=== PATIENT | male | born 1945 ===

== ENCOUNTER 2018-11-12 08:12 | Inpatient (IN) | payer MEDICARE ==
[2018-11-12] MEDS ORDERED: Dextrose 50% Syringe 50 ML* 25 GM/50 ML SYRINGE IV PUSH PRN (14:42)
[2018-11-12] MEDS ORDERED: Acetaminophen TAB* 325 MG PO ONE (16:30)
[2018-11-12] MEDS: Atorvastatin* 80 MG TAB PO SCH (17:09)
[2018-11-12] MEDS: metFORMIN* 1,000 MG TAB PO SCH (17:15)
[2018-11-12] MEDS: Insulin LISPRO* 1 UNITS UNIT SUBCUT SCH ×2 (18:19→21:41)
[2018-11-12] MEDS: Enoxaparin(*) 40 MG/0.4 ML SYR SUBCUT SCH ×2 (20:34→21:42)
[2018-11-12] MEDS: Loperamide CAP* 2 MG PO PRN (20:34)
[2018-11-12] MEDS ORDERED: Docusate CAP* 100 MG PO SCH (21:00)
--- NOTE | 2018-11-12 21:59 | HP ---
ADMISSION HISTORY AND PHYSICAL: DATE OF ADMISSION: 11/12/18 REASON FOR ADMISSION: Stroke with right hemiplegia and dysphagia. HISTORY OF PRESENT ILLNESS: Yovany Cosme is a 73-year-old male. In August 2017, he fell and hit his head and developed a subdural hematoma. However, he recovered from that and was still able to work. On 11/04/18, the patient had developed acute onset of slurred speech. His had called him and she did not like the way he sounded. She had later brought him to [facility]. He was admitted to [facility] and apparently had an MRI of his brain. He was diagnosed with a new stroke. He was sent home with Plavix in addition to normal aspirin. His took him home on 11/05/18. When she was driving home , she stopped at the drug store to pharmacy picking tech the Plavix. She said the patient was getting weaker on the right side all the way home. She was able to get him into the house and into a recliner chair. However, once he was in the recliner , he had a lot of difficulty getting out. But she tried to get him out and onto the couch, he had a great deal of difficulty walking and practically fell on to the floor. She eventually called paramedics and he was taken back to [facility]. From [facility], he was transferred to the [facility]. He was evaluated. He had a CAT scan of his head showing a subacute infarct of the left todd radiata and thalamus. He was not administered TPA because he was outside the window. He did not undergo endovascular therapy. The patient had a new MRI of his brain done. MRI showed a left subinsular/centrum semi ovale subacute infarct. He had an echocardiogram showing left ventricular hypertrophy with left atrial enlargement , but normal ejection fraction. The echo was negative for left and right shunting. He also had a swallow study and there was silent aspiration of regular liquids, so the patient's liquids were thickened. The patient was found to have physical therapy, occupational therapy, and speech therapy needs. He is now being admitted for inpatient rehab so that he might return to independent living. Of note, he was monitored on telemetry and it did not reveal any atrial fibrillation. Also notable was his lab work that showed an LDL of 104 and a hemoglobin A1c of 8.4. PAST MEDICAL HISTORY: Significant for the aforementioned subdural hematoma, diabetes mellitus. He has a history of hypertension and hyperlipidemia. MEDICATIONS: Current medications include: 1. Full strength aspirin every day. 2. Lipitor 80 mg. 3. He is on Lovenox. 4. Glucotrol. 5. Lispro insulin. 6. Lisinopril. 7. Glucophage. 8. Januvia. ALLERGIES: The patient has no known drug allergies. SOCIAL HISTORY: He is a nonsmoker, rare drinker. He lives with his in a [address] house in [place]. He has 2 children who live in the [facility]. 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 REVIEW OF SYSTEMS: The patient reports no current shortness of breath or chest pain. He does report diarrhea, which started at [facility]. PHYSICAL EXAMINATION VITAL SIGNS: The patient's temperature is 97.7, blood pressure is 121/68, pulse 73, respirations 16. HEENT: His extraocular movements are intact. Tongue is midline. NECK: Supple. LUNGS: Sound clear to auscultation bilaterally. HEART: Sounds were regular. S1 and S2 were audible. ABDOMEN: Soft and nontender. EXTREMITIES: He has a flaccid right upper extremity and pretty much a flaccid right lower extremity. Peripheral pulses were intact. NEUROLOGIC: Sensation was intact. Muscle strength: He had no active movement of his right arm. He had maybe trace hip flexion on the right and trace hip extension on the right. He has a right VII nerve palsy. He had dysarthric speech noted. FUNCTIONAL EXAM: The patient's transfers are dependent. ASSESSMENT: Left-sided cerebrovascular accident with right hemiplegia. It appears that he was discharged from [facility] on 11/05/18 while his stroke was still evolving. PLAN/RECOMMENDATIONS: Our plan is to integrate him into comprehensive and therapeutic rehab program with the following goals: 1. Physical Therapy will see the patient. They are going to work on functional transfer training, ambulation training with a walker. 2. Occupational Therapy will see the patient and work on his activities of daily living including toileting and toilet transfers. 3. Speech therapy will see the patient. They will evaluate him for his swallowing difficulties and help advice us on a proper diet. 4. Lovenox for DVT prophylaxis. 5. For his diabetes, we can continue his glipizide, his metformin, Januvia, and sliding scale insulin. 6. Continue Lipitor 80 mg for hyperlipidemia. 7. Continue full strength aspirin a day for secondary stroke prevention. 8. For his diarrhea, we will hold his bowel medications and start Imodium. 9. For hypertension, we will continue the lisinopril 40. We will follow his vital signs. 10. Family training as appropriate. 11. software engineer web services to be closely involved to make sure that any services and equipment that are needed are in place prior to discharge. 12. Home with appropriate services. ESTIMATED LENGTH OF STAY: 4 weeks. [id number]/CPS #: [id number] JUWAN
[2018-11-13 06:00] LABS: ABS Basophils 0.1 10^3/ul (0-0.2); ABS Eosinophils 0.3 10^3/ul (0-0.6); ABS Lymphocytes 1.5 10^3/ul (1.0-4.8); ABS Monocytes 0.9 10^3/ul (0-0.8); ABS Neutrophils 6.1 10^3/ul (1.5-7.7); ABS Nucleated RBC 0 10^3/ul; Eosinophil % 3.5 %; Hematocrit 45 % (36-46); Hemoglobin 14.9 g/dL (14.0-18.0); Lymphocyte % 17.2 %; Mean Corpuscular HGB Conc 33 g/dL (31-36); Mean Corpuscular Hemoglobin 30 pg (27-31); Mean Corpuscular Volume 91 fL (80-94); Mean Platelet Volume 9.3 fL (7.4-10.4); Nucleated Red Blood Cells % 0; Platelet Count 290 10^3/uL (150-450); Red Blood Count 4.92 10^6 /uL (4.18-5.48); Red Cell Distribution Width 14 % (10.5-15)
[2018-11-13 06:16] LABS: Albumin 4.1 g/dL (3.2-5.2); Albumin/Globulin Ratio 1.5 (1-3); Calcium 9.8 mg/dL (8.6-10.3); EGFR African American 72.5 (>60); EGFR Non-African American 59.9 (>60); Globulin 2.7 g/dL (2-4); Potassium 4.2 mmol/L (3.5-5.0); Total Bilirubin 0.5 mg/dL (0.2-1.0); Total Protein 6.8 g/dL (6.4-8.9)
[2018-11-13] MEDS: Insulin LISPRO* 1 UNITS UNIT SUBCUT SCH ×4 (09:21→21:12)
[2018-11-13] MEDS: Aspirin EC TAB* 325 MG PO SCH (09:22)
[2018-11-13] MEDS: CMC:SitaGLIPtin (NF) 100 MG TAB PO SCH (09:22)
[2018-11-13] MEDS: glipiZIDE TAB.XL* 5 MG PO SCH (09:22)
[2018-11-13] MEDS: Lisinopril TAB* 10 MG PO SCH (09:22)
[2018-11-13] MEDS: metFORMIN* 1,000 MG TAB PO SCH ×2 (09:22→16:48)
[2018-11-13] MEDS: Lactobacillus Acidophilus* 1 TAB PO SCH (09:22)
--- NOTE | 2018-11-13 12:57 | PMRUTEAM ---
PMRU: Team Meeting Current Status: Nursing: Current Status Skin Deviations [Upper Back] Rash Skin Deviations [Right Arm] Bruise Skin Deviation Description [ lotion applied Upper Back] Skin Deviation Description [ prior to admission Right Arm] Physical Therapy: Current Status Bed Mobility Assistance Dependent Transfer Mobility Assistance DSPPECependent Ambulation Assistance N/A Occupational Therapy: Current Status Upper Body Dressing Max Asst Lower Body Dressing Total Assist,2 Person Assist Bathing Max Asst,2 Person Assist Toileting Total Assist,2 Person Assist Toilet Transfer Total Assist,2 Person Assist Shower Transfer Total Assist,2 Person Assist Eating Supervision Social Work: Current Status Discharge Plan return home with home care svs and family support Potential for Family Training pt's is involved and supportive Anticipated Discharge Home Destination Discharge With Home care svs and family support SPEECH THERAPY: Mechanical ground, nectar thick liquids, dysphonia, dysarthria Goals: Occupational Therapy: Initial Goals Goals to be Completed in (Days 28+ ) Upper Body Bathing Routine Independent Lower Body Bathing Routine Modified Independent with Upper Body Dressing Routine Independent Lower Body Dressing Routine Modified Independent with Toilet Hygeine and Clothing Modified Independent with Management Routine Toilet Transfer Routine Modified Independent with Step-In Shower Transfer Supervision/Set Up Routine Functional Transfers for ADL Modified Independent with Grooming Routine Independent Feeding Routine Independent Speech: Goals Speech Goal 1 Swallowing Speech Evaluation Status Goal Mild-moderate impairment 1 Goal 1 Comments Long-Term Goal: Patient will I'ly follow precautions to tolerate least restrictive diet consistencies w/ no complications from aspiration. Status: Goals established Short Term Goals: 1) STG: Patient will demonstrate and follow swallowing exercises and compensatory strategies, to tolerate mechanical/ground diet texture and nectar thick liquids, w/ adequate PO intake and no clinical s/s aspiration, Independently 2) STC: Patient will I'ly follow precautions and compensatory strategies, to tolerate thin water between meals and after good oral hygiene, without regard to expected clinical s/s of aspiration, and with no complications from aspiration, Independently 3) STG: Patient will demonstrate and follow swallowing exercises and compensatory strategies, to tolerate regular diet consistency w/ no clinical s/s aspiration, Independently 4) STC: Patient will I'ly follow precautions and compensatory strategies, to tolerate thin liquids with no clinical s/s or complications from aspiration, Independently Speech Goal 2 Motor Speech Speech Goal 2 Comments Motor-speech Long-Term Goal: Pt will I'ly speak with 100% intelligibility, Independently Status: Goals established Short-Term Goal 1: Pt will use compensatory strategies to increase speech to intelligibility to 100% in spontaneous conversational speech, given minimal cueing. Short-Term Goal 2: Pt will use compensatory articulation strategies to increase speech to intelligibility to 90% in structured speech activities, given Moderate cueing. Short-Term Goal 3: Pt will use compensatory articulation strategies to improve vocal loudness and quality, to support intelligible speehc, as judged by ART HISTORY PROFESSOR, staff and family. Social Work: Goals Discharge Plan return home with home care svs and family support Potential for Family Training pt's is involved and supportive Anticipated Discharge Home Destination Discharge With Home care svs and family support PHYSICAL THERAPY: Independent bed mobility and transfers, wheelchair level Care Plan: Care Plan ADL's - Improve/Maintain Start: 11/13/18 07:10 Freq: DAILY Status: Active Target: Protocol: Activity Type Activity Date Activity User E-Sign Co-Sign Detail Recorded Client Recorded Date Recorded By Document 11/13/18 07:10 [id number] 11/13/18 07:11 [id number] 11/13/18 07:10 PMRU Outcome: ADL's/ADL Transfers Orders/Interventions Occupational Therapy Evaluation & Treatment Communication Tool in Patient Room Patient to receive OT 5x/wk for 60-120 Therex min/day Self Care Management Group Therapy UE/LE ADL's with Assist Yes: mod I ADL Transfers with Assist Yes: mod I Toileting: Transfers,Clothing Management Yes: mod I ,Hygeine w/Assist Outcome/Goals Met Pt presents with RUE deficits ( strength, AROM, coordination), balance deficits, RLE weakness, decreased endurance and generalized weakness that affect his ability to complete bathing, dressing, toileting, toilet transfers, showering and feeding. Pt would benefit from skilled OT intervention in a rehabilitation setting to maximize independence with ADLs and ADL trasnfers. Pt is agreeable to OT POC. Family's questions were answered. Cardiovascular-Improve/Maintain Start: 11/13/18 00:55 Freq: DAILY@0400,1600 Status: Active Target: Protocol: Activity Type Activity Date Activity User E-Sign Co-Sign Detail Recorded Client Recorded Date Recorded By Document 11/13/18 00:55 [id number] 11/13/18 00:56 [id number] 11/13/18 00:55 Outcome: Cardiovascular Current Cardiovascular Outcome/Goal Maintain/ achieve hemodynamic stability Free of abnormal cardiac symptoms Progression Towards Outcome/Goal Progressing Communication-Improve/Maintain Start: 11/13/18 12:14 Freq: DAILY Status: Active Target: Protocol: Activity Type Activity Date Activity User E-Sign Co-Sign Detail Recorded Client Recorded Date Recorded By Document 11/13/18 12:14 [id number] 11/13/18 12:16 [id number] 11/13/18 12:14 PMRU Outcome: Communication/Cognitive Status Other Outcomes/Goals Swallowing Goals: Long-Term Goal: Patient will I 'ly follow precautions to tolerate least restrictive diet consistencies w / no complications from aspiration . Status: Goals established Short Term Goals: 1) STG: Patient will demonstrate and follow swallowing exercises and compensatory strategies, to tolerate mechanical/ ground diet texture and nectar thick liquids, w/ adequate PO intake and no clinical s/s aspiration, Independently 2) STC: Patient will I' ly follow precautions and compensatory strategies, to tolerate thin water between meals and after good oral hygiene, without regard to expected clinical s/s of aspiration, and with no complications from aspiration , Independently 3) STG: Patient will demonstrate and follow swallowing exercises and compensatory strategies, to tolerate regular diet consistency w/ no clinical s/s aspiration, Independently 4) STC: Patient will I' ly follow precautions and compensatory strategies, to tolerate thin liquids with no clinical s/s or complications from aspiration , Independently Motor-speech Goals: Long-Term Goal: Pt will I'ly speak with 100% intelligibility , Independently Status: Goals established Short-Term Goal 1: Pt will use compensatory strategies to increase speech to intelligibility to 100% in spontaneous conversational speech, given minimal cueing. Short-Term Goal 2: Pt will use compensatory articulation strategies to increase speech to intelligibility to 90% in structured speech activities, given Moderate cueing. Short-Term Goal 3: Pt will use compensatory articulation strategies to improve vocal loudness and quality, to support intelligible speehc, as judged by ART HISTORY PROFESSOR, staff and family. Progression Toward Outcomes/Goals Progressing Outcome/Goals Met Comment .Swallowing assessment and initial speech- language screening was completed. Complete Speech -Language/ Cognitive- Communication assessment is indicated Discharge Planning Start: 11/13/18 00:55 Freq: DAILY@0400,1600 Status: Active Target: Protocol: Activity Type Activity Date Activity User E-Sign Co-Sign Detail Recorded Client Recorded Date Recorded By Document 11/13/18 00:55 [id number] 11/13/18 00:56 [id number] 11/13/18 00:55 Outcome: Discharge Planning Outcome/Goals Demonstrates Understanding of Discharge Plan Progression Toward Outcome/Goals Progressing Genitourinary-Improve/Maintain Start: 11/13/18 00:55 Freq: DAILY@0400,1600 Status: Active Target: Protocol: Activity Type Activity Date Activity User E-Sign Co-Sign Detail Recorded Client Recorded Date Recorded By Document 11/13/18 00:55 [id number] 11/13/18 00:56 [id number] 11/13/18 00:55 Outcome: Genitourinary Outcome/Goals Maintain/ Achieve Urinary Continence Maintain/ Achieve Adequate Urinary Output Progression Toward Outcome/Goals Progressing Medicine Note: Length of Stay: 6 weeks Anticipated Discharge Destination: Home Tentative Discharge Date: December 25, 2018 Discharged to: Home
[2018-11-13] MEDS ORDERED: Al Hydrox/Mg Hydrox/Simet LIQ* 30 ML UDC PO PRN (13:46)
[2018-11-13] MEDS: D5NS 0.9% 1000 ML BAG* 1,000 ML IV SCH (16:05)
[2018-11-13] MEDS: Atorvastatin* 80 MG TAB PO SCH (16:48)
[2018-11-13] MEDS ORDERED: Atorvastatin* 80 MG TAB PO SCH (17:00)
--- NOTE | 2018-11-13 17:15 | PN ---
Progress Note Date of Service: 11/13/18 Note: KEERTHI LEHMAN was visited. Therapy notes read and reviewed. He was discussed in interdisciplinary plan of care rounds. His blood work indicates that he is dehydrated and will order IV fluids. He is not taking a lot PO. His diarrhea appears to have slowed. Current Medications: Active Medications Generic Name Dose Route Start Last Admin Trade Name Freq PRN Reason Stop Dose Admin Acetaminophen 650 mg 11/12/18 18:05 Tylenol Tab* PO Q6H PRN FEVER/PAIN Al Hydrox/Mg Hydrox/Simethicone 30 ml 11/13/18 13:46 11/13/18 13:57 Maalox Plus* PO 30 ml Q4H PRN Administration DYSPEPSIA Aspirin 325 mg 11/13/18 09:00 11/13/18 09:22 Ecotrin Ec Tab* PO 325 mg DAILY ELROY Administration Atorvastatin Calcium 80 mg 11/12/18 17:00 11/13/18 16:48 Lipitor* PO 80 mg 1700 ELROY Administration Bisacodyl 10 mg 11/12/18 14:09 Dulcolax Supp* AR DAILY PRN CONSTIPATION Dextrose 12.5 gm 11/12/18 14:42 D50w Syringe 50 Ml* IV PUSH .FOR FS < 60 - SS PRN FS < 60 Docusate Sodium 100 mg 11/12/18 19:32 Colace Cap* PO BID PRN CONSTIPATION Enoxaparin Sodium 40 mg 11/12/18 20:30 11/12/18 21:42 Lovenox(*) SUBCUT 40 mg Q24H ELROY Administration Glipizide 10 mg 11/13/18 09:00 11/13/18 09:22 Glucotrol Xl* PO 10 mg DAILY ELROY Administration Dextrose/Sodium Chloride 1,000 mls @ 75 mls/hr 11/13/18 16:00 11/13/18 16:05 D5ns 0.9% 1000 Ml Bag* IV 11/15/18 05:19 75 mls/hr PER RATE ELROY Administration Insulin Human Lispro 0 - 10 units 11/12/18 16:30 11/13/18 16:56 Humalog* SUBCUT Not Given A[facility]S [facility] Protocol Lactobacillus Rhamnosus 1 tab 11/13/18 09:00 11/13/18 09:22 Lactobacillus Acidophilus* PO 1 tab DAILY ELROY Administration Lisinopril 40 mg 11/13/18 09:00 11/13/18 09:22 Prinivil Tab* PO 40 mg DAILY ELROY Administration Loperamide HCl 2 mg 11/12/18 19:31 11/12/18 20:34 Imodium Cap* PO 2 mg .SEE DIRECTIONS PRN Administration DIARRHEA Magnesium Hydroxide 30 ml 11/12/18 14:09 Milk Of Mariela Lozanoq* PO Q6H PRN CONSTIPATION Metformin HCl 1,000 mg 11/12/18 17:00 11/13/18 16:48 Glucophage* PO 1,000 mg 0800,1700 ELROY Administration Senna 2 tab 11/12/18 14:09 Senokot Tab* PO BEDTIME PRN CONSTIPATION Sertraline HCl 25 mg 11/14/18 09:00 Zoloft* PO DAILY ELROY Sitagliptin Phosphate 100 mg 11/13/18 09:00 11/13/18 09:22 Januvia (Nf) PO 100 mg DAILY ELROY Administration Vital Signs: Vital Signs Temp Pulse Resp BP Pulse Ox 97.6 F 77 16 117/64 95 11/13/18 05:35 11/13/18 05:35 11/13/18 05:35 11/13/18 05:35 11/13/18 05:35 Lab Results: Laboratory Results - last 24 hr 11/13/18 11/13/18 11/13/18 05:28 05:28 08:07 WBC 9.0 RBC 4.92 Hgb 14.9 Hct 45 MCV 91 MCH 30 MCHC 33 RDW 14 Plt Count 290 MPV 9.3 Neut % (Auto) 68.0 Lymph % (Auto) 17.2 [place] % (Auto) 10.5 Eos % (Auto) 3.5 Baso % (Auto) 0.8 Absolute Neuts (auto) 6.1 Absolute Lymphs (auto) 1.5 Absolute Monos (auto) 0.9 H Absolute Eos (auto) 0.3 Absolute Basos (auto) 0.1 Absolute Nucleated RBC 0 Nucleated RBC % 0 Sodium 137 Potassium 4.2 Chloride 104 Carbon Dioxide 25 Anion Gap 8 BUN 44 H Creatinine 1.19 H Est GFR ( Amer) 72.5 Est GFR (Non-Af Amer) 59.9 BUN/Creatinine Ratio 37.0 H Glucose 186 H POC Glucose (mg/dL) 195 H Calcium 9.8 Total Bilirubin 0.50 AST 20 ALT 26 Alkaline Phosphatase 65 Total Protein 6.8 Albumin 4.1 Globulin 2.7 Albumin/Globulin Ratio 1.5 11/13/18 11/13/18 10:57 16:46 WBC RBC Hgb Hct MCV MCH MCHC RDW Plt Count MPV Neut % (Auto) Lymph % (Auto) [place] % (Auto) Eos % (Auto) Baso % (Auto) Absolute Neuts (auto) Absolute Lymphs (auto) Absolute Monos (auto) Absolute Eos (auto) Absolute Basos (auto) Absolute Nucleated RBC Nucleated RBC % Sodium Potassium Chloride Carbon Dioxide Anion Gap BUN Creatinine Est GFR ( Amer) Est GFR (Non-Af Amer) BUN/Creatinine Ratio Glucose POC Glucose (mg/dL) 220 H 69 L Calcium Total Bilirubin AST ALT Alkaline Phosphatase Total Protein Albumin Globulin Albumin/Globulin Ratio Exam: HEENT: Right facial droop. Dysarthric LUNGS: Clear HEART: Occasional skipped beats ABDOMEN: Soft +BS EXTREMITIES: Flaccid right UE and LE NEUROLOGIC: Trace hip flexion on right. No active arm movement seen, No DF or PF Assessment/Plan: 1. Left CVA with dense right hemiplegia: ASA. 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 2. DM: Metformin/glipizide/Januvia. SSI 3. HTN: Lisinopril 4. Hyperlipidemia: Lipitor 80 5. Diarrhea: Imodium PRN. Lactobacillus. 6. Dysphagia: Mechanical soft diet/nectar thickened liquids 7. DVT Prophylaxis: Lovenox 8. Dehydration with increasing BUN/Cr: IV D5NS at 75 ml/hr x 2 liters 9. Advance Directives: Full code. is surrogate decision maker 11/13/18 17:15 11/13/18 17:17
[2018-11-13] MEDS: Loperamide CAP* 2 MG PO PRN (19:10)
[2018-11-13] MEDS: Enoxaparin(*) 40 MG/0.4 ML SYR SUBCUT SCH (20:13)
[2018-11-13] MEDS: Famotidine TAB* 20 MG PO SCH (20:13)
[2018-11-14] MEDS: D5NS 0.9% 1000 ML BAG* 1,000 ML IV SCH (06:36)
[2018-11-14] MEDS: Insulin LISPRO* 1 UNITS UNIT SUBCUT SCH ×4 (09:29→21:08)
[2018-11-14] MEDS: glipiZIDE TAB.XL* 5 MG PO SCH (09:31)
[2018-11-14] MEDS: Lisinopril TAB* 10 MG PO SCH (09:31)
[2018-11-14] MEDS: Lactobacillus Acidophilus* 1 TAB PO SCH (09:31)
[2018-11-14] MEDS: CMC:SitaGLIPtin (NF) 100 MG TAB PO SCH (09:31)
[2018-11-14] MEDS: Aspirin EC TAB* 325 MG PO SCH (09:31)
[2018-11-14] MEDS: Sertraline* 25 MG TAB PO SCH (09:31)
[2018-11-14] MEDS: Famotidine TAB* 20 MG PO SCH ×2 (09:32→21:46)
[2018-11-14] MEDS: metFORMIN* 1,000 MG TAB PO SCH ×2 (09:32→17:04)
--- NOTE | 2018-11-14 12:33 | PN ---
Progress Note Date of Service: 11/14/18 Note: KEERTHI LEHMAN was visited. Therapy notes read and reviewed. Receiving IV fluids but IV keeps getting occluded. He looks slightly better than yesterday. Diarrhea seems to have stopped. Current Medications: Active Medications Generic Name Dose Route Start Last Admin Trade Name Freq PRN Reason Stop Dose Admin Acetaminophen 650 mg 11/12/18 18:05 Tylenol Tab* PO Q6H PRN FEVER/PAIN Al Hydrox/Mg Hydrox/Simethicone 30 ml 11/13/18 13:46 11/13/18 13:57 Maalox Plus* PO 30 ml Q4H PRN Administration DYSPEPSIA Aspirin 325 mg 11/13/18 09:00 11/14/18 09:31 Ecotrin Ec Tab* PO 325 mg DAILY ELROY Administration Atorvastatin Calcium 80 mg 11/12/18 17:00 11/13/18 16:48 Lipitor* PO 80 mg 1700 ELROY Administration Bisacodyl 10 mg 11/12/18 14:09 Dulcolax Supp* [place] DAILY PRN CONSTIPATION Dextrose 12.5 gm 11/12/18 14:42 D50w Syringe 50 Ml* IV PUSH .FOR FS < 60 - SS PRN FS < 60 Docusate Sodium 100 mg 11/12/18 19:32 Colace Cap* PO BID PRN CONSTIPATION Enoxaparin Sodium 40 mg 11/12/18 20:30 11/13/18 20:13 Lovenox(*) SUBCUT 40 mg Q24H ELROY Administration Famotidine 20 mg 11/13/18 21:00 11/14/18 09:32 Pepcid Tab* PO 20 mg BID ELROY Administration Glipizide 10 mg 11/13/18 09:00 11/14/18 09:31 Glucotrol Xl* PO 10 mg DAILY ELROY Administration Dextrose/Sodium Chloride 1,000 mls @ 75 mls/hr 11/13/18 16:00 11/14/18 06:36 D5ns 0.9% 1000 Ml Bag* IV 11/15/18 05:19 75 mls/hr PER RATE ELRYO Administration Insulin Human Lispro 0 - 10 units 11/12/18 16:30 11/14/18 09:29 Humalog* SUBCUT 2 units ACHS ELROY Administration Protocol Lactobacillus Rhamnosus 1 tab 11/13/18 09:00 11/14/18 09:31 Lactobacillus Acidophilus* PO 1 tab DAILY ELROY Administration Lisinopril 40 mg 11/13/18 09:00 11/14/18 09:31 Prinivil Tab* PO 40 mg DAILY ELROY Administration Loperamide HCl 2 mg 11/12/18 19:31 11/13/18 19:10 Imodium Cap* PO 2 mg .SEE DIRECTIONS PRN Administration DIARRHEA Magnesium Hydroxide 30 ml 11/12/18 14:09 Milk Of Magnesia Liq* PO Q6H PRN CONSTIPATION Metformin HCl 1,000 mg 11/12/18 17:00 11/14/18 09:32 Glucophage* PO 1,000 mg 0800,1700 ELROY Administration Senna 2 tab 11/12/18 14:09 Senokot Tab* PO BEDTIME PRN CONSTIPATION Sertraline HCl 25 mg 11/14/18 09:00 11/14/18 09:31 Zoloft* PO 25 mg DAILY ELROY Administration Sitagliptin Phosphate 100 mg 11/13/18 09:00 11/14/18 09:31 Januvia (Nf) PO 100 mg DAILY ELROY Administration Vital Signs: Vital Signs Temp Pulse Resp BP Pulse Ox 97.6 F 75 18 99/65 96 11/14/18 05:05 11/14/18 05:05 11/14/18 05:05 11/14/18 05:05 11/14/18 05:05 Lab Results: Laboratory Results - last 24 hr 11/13/18 11/13/18 11/14/18 16:46 20:28 07:28 POC Glucose (mg/dL) 69 L 113 H 182 H 11/14/18 11:36 POC Glucose (mg/dL) 168 H Exam: HEENT: Right facial droop. Dysarthric LUNGS: Clear HEART: Occasional skipped beats ABDOMEN: Soft +BS EXTREMITIES: Flaccid right UE and LE NEUROLOGIC: Trace hip flexion on right. No active arm movement seen, No DF or PF Assessment/Plan: 1. Left CVA with dense right hemiplegia: ASA. 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 2. DM: Metformin/glipizide/Januvia. SSI 3. HTN: Lisinopril 4. Hyperlipidemia: Lipitor 80 5. Diarrhea: Imodium PRN. Lactobacillus. 6. Dysphagia: Mechanical soft diet/nectar thickened liquids 7. DVT Prophylaxis: Lovenox 8. Dehydration with increasing BUN/Cr: IV D5NS at 75 ml/hr x 2 liters 9. Advance Directives: Full code. is surrogate decision maker 11/14/18 12:33
[2018-11-14] MEDS: Atorvastatin* 80 MG TAB PO SCH (17:04)
[2018-11-14] MEDS ORDERED: LORazepam TAB(*) 0.5 MG PO ONE (21:00)
[2018-11-14] MEDS: Enoxaparin(*) 40 MG/0.4 ML SYR SUBCUT SCH (21:45)
[2018-11-14] MEDS: Acetaminophen TAB* 325 MG PO PRN (21:47)
[2018-11-15] MEDS: Loperamide CAP* 2 MG PO PRN (00:02)
[2018-11-15] MEDS: Insulin LISPRO* 1 UNITS UNIT SUBCUT SCH ×4 (07:47→20:48)
[2018-11-15] MEDS: metFORMIN* 1,000 MG TAB PO SCH ×2 (10:21→17:19)
[2018-11-15] MEDS: Famotidine TAB* 20 MG PO SCH ×2 (10:21→20:55)
[2018-11-15] MEDS: Sertraline* 25 MG TAB PO SCH (10:21)
[2018-11-15] MEDS: Lisinopril TAB* 10 MG PO SCH (10:21)
[2018-11-15] MEDS: CMC:SitaGLIPtin (NF) 100 MG TAB PO SCH (10:21)
[2018-11-15] MEDS: Lactobacillus Acidophilus* 1 TAB PO SCH (10:22)
[2018-11-15] MEDS: Aspirin EC TAB* 325 MG PO SCH (10:22)
[2018-11-15] MEDS: glipiZIDE TAB.XL* 5 MG PO SCH (10:23)
--- NOTE | 2018-11-15 16:36 | PN ---
Progress Note Date of Service: 11/15/18 Note: KEERTHI LEHMAN was visited. Therapy notes read and reviewed. Solo remains impaired. His is worried about the positioning of his right foot. Will order multipodus boot. He has had vomiting on several occasions since he has been here. I had thought it was a virus but am worried about gastroparesis in this diabetic. May start Reglan Current Medications: Active Medications Generic Name Dose Route Start Last Admin Trade Name Freq PRN Reason Stop Dose Admin Acetaminophen 650 mg 11/12/18 18:05 11/14/18 21:47 Tylenol Tab* PO 650 mg Q6H PRN Administration FEVER/PAIN Al Hydrox/Mg Hydrox/Simethicone 30 ml 11/13/18 13:46 11/13/18 13:57 Maalox Plus* PO 30 ml Q4H PRN Administration DYSPEPSIA Aspirin 325 mg 11/13/18 09:00 11/15/18 10:22 Ecotrin Ec Tab* PO 325 mg DAILY ELROY Administration Atorvastatin Calcium 80 mg 11/12/18 17:00 11/14/18 17:04 Lipitor* PO 80 mg 1700 ELROY Administration Bisacodyl 10 mg 11/12/18 14:09 Dulcolax Supp* OR DAILY PRN CONSTIPATION Dextrose 12.5 gm 11/12/18 14:42 D50w Syringe 50 Ml* IV PUSH .FOR FS < 60 - SS PRN FS < 60 Docusate Sodium 100 mg 11/12/18 19:32 Colace Cap* PO BID PRN CONSTIPATION Enoxaparin Sodium 40 mg 11/12/18 20:30 11/14/18 21:45 Lovenox(*) SUBCUT 40 mg Q24H ELROY Administration Famotidine 20 mg 11/13/18 21:00 11/15/18 10:21 Pepcid Tab* PO 20 mg BID ELROY Administration Glipizide 10 mg 11/13/18 09:00 11/15/18 10:23 Glucotrol Xl* PO Not Given DAILY ELROY Insulin Human Lispro 0 - 10 units 11/12/18 16:30 11/15/18 12:36 Humalog* SUBCUT 1 units ACHS ELROY Administration Protocol Lactobacillus Rhamnosus 1 tab 11/13/18 09:00 11/15/18 10:22 Lactobacillus Acidophilus* PO 1 tab DAILY ELROY Administration Lisinopril 40 mg 11/13/18 09:00 11/15/18 10:21 Prinivil Tab* PO 40 mg DAILY ELROY Administration Loperamide HCl 2 mg 11/12/18 19:31 11/15/18 00:02 Imodium Cap* PO 2 mg .SEE DIRECTIONS PRN Administration DIARRHEA Lorazepam 0.5 mg 11/15/18 16:31 Ativan Tab(*) PO BEDTIME PRN ANXIETY Magnesium Hydroxide 30 ml 11/12/18 14:09 Milk Of Magnesia Liq* PO Q6H PRN CONSTIPATION Metformin HCl 1,000 mg 11/12/18 17:00 11/15/18 10:21 Glucophage* PO 1,000 mg 0800,1700 ELROY Administration Senna 2 tab 11/12/18 14:09 Senokot Tab* PO BEDTIME PRN CONSTIPATION Sertraline HCl 25 mg 11/14/18 09:00 11/15/18 10:21 Zoloft* PO 25 mg DAILY ELROY Administration Sitagliptin Phosphate 100 mg 11/13/18 09:00 11/15/18 10:21 Januvia (Nf) PO 100 mg DAILY ELROY Administration Vital Signs: Vital Signs Temp Pulse Resp BP Pulse Ox 97.8 F 66 18 127/55 97 11/15/18 06:25 11/15/18 15:42 11/15/18 06:25 11/15/18 15:42 11/15/18 15:42 Lab Results: Laboratory Results - last 24 hr 11/14/18 11/14/18 11/15/18 16:29 20:58 07:29 POC Glucose (mg/dL) 128 H 111 H 84 11/15/18 11:25 POC Glucose (mg/dL) 131 H Exam: HEENT: Right facial droop. Dysarthric, hypophonic LUNGS: Clear HEART: Occasional skipped beats ABDOMEN: Soft +BS EXTREMITIES: Starting to get tone in right UE and LE NEUROLOGIC: Trace hip flexion on right. No active arm movement seen, No DF or PF Assessment/Plan: 1. Left CVA with dense right hemiplegia: ASA. 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 2. DM: Metformin/glipizide/Januvia. SSI 3. HTN: Lisinopril 4. Hyperlipidemia: Lipitor 80 5. Diarrhea: Imodium PRN. Lactobacillus. 6. Dysphagia: Mechanical soft diet/nectar thickened liquids, free H2O between meals 7. DVT Prophylaxis: Lovenox 8. Dehydration: Check BUN/Cr 9. Advance Directives: Full code. is surrogate decision maker 11/15/18 16:37
[2018-11-15] MEDS: Atorvastatin* 80 MG TAB PO SCH (17:19)
[2018-11-15] MEDS: LORazepam TAB(*) 0.5 MG PO PRN (20:55)
[2018-11-15] MEDS: Acetaminophen TAB* 325 MG PO PRN (20:55)
[2018-11-15] MEDS: Enoxaparin(*) 40 MG/0.4 ML SYR SUBCUT SCH (20:58)
[2018-11-16] MEDS: Insulin LISPRO* 1 UNITS UNIT SUBCUT SCH ×4 (07:30→21:36)
[2018-11-16] MEDS: Metoclopramide TAB* 10 MG PO SCH ×3 (10:15→16:57)
[2018-11-16] MEDS: Famotidine TAB* 20 MG PO SCH ×2 (10:24→21:36)
[2018-11-16] MEDS: glipiZIDE TAB.XL* 5 MG PO SCH (10:24)
[2018-11-16] MEDS: Aspirin EC TAB* 325 MG PO SCH (10:24)
[2018-11-16] MEDS: Lisinopril TAB* 10 MG PO SCH (10:24)
[2018-11-16] MEDS: Sertraline* 25 MG TAB PO SCH (10:25)
[2018-11-16] MEDS: metFORMIN* 1,000 MG TAB PO SCH ×2 (10:25→16:57)
[2018-11-16] MEDS: Lactobacillus Acidophilus* 1 TAB PO SCH (10:25)
[2018-11-16] MEDS: CMC:SitaGLIPtin (NF) 100 MG TAB PO SCH (10:25)
[2018-11-16] MEDS: Atorvastatin* 80 MG TAB PO SCH (16:56)
--- NOTE | 2018-11-16 18:22 | PN ---
Progress Note Date of Service: 11/16/18 Note: KEERHTI LEHMAN was visited. Therapy notes read and reviewed. No vomiting today. Started Reglan and seemed to do better. Voice remains very hypophonic Current Medications: Active Medications Generic Name Dose Route Start Last Admin Trade Name Freq PRN Reason Stop Dose Admin Acetaminophen 650 mg 11/12/18 18:05 11/15/18 20:55 Tylenol Tab* PO 650 mg Q6H PRN Administration FEVER/PAIN Al Hydrox/Mg Hydrox/Simethicone 30 ml 11/13/18 13:46 11/13/18 13:57 Maalox Plus* PO 30 ml Q4H PRN Administration DYSPEPSIA Aspirin 325 mg 11/13/18 09:00 11/16/18 10:24 Ecotrin Ec Tab* PO 325 mg DAILY ELROY Administration Atorvastatin Calcium 80 mg 11/12/18 17:00 11/16/18 16:56 Lipitor* PO 80 mg 1700 ELROY Administration Bisacodyl 10 mg 11/12/18 14:09 Dulcolax Supp* DC DAILY PRN CONSTIPATION Dextrose 12.5 gm 11/12/18 14:42 D50w Syringe 50 Ml* IV PUSH .FOR FS < 60 - SS PRN FS < 60 Docusate Sodium 100 mg 11/12/18 19:32 Colace Cap* PO BID PRN CONSTIPATION Enoxaparin Sodium 40 mg 11/12/18 20:30 11/15/18 20:58 Lovenox(*) SUBCUT 40 mg Q24H ELROY Administration Famotidine 20 mg 11/13/18 21:00 11/16/18 10:24 Pepcid Tab* PO 20 mg BID ELROY Administration Glipizide 10 mg 11/13/18 09:00 11/16/18 10:24 Glucotrol Xl* PO 10 mg DAILY ELROY Administration Insulin Human Lispro 0 - 10 units 11/12/18 16:30 11/16/18 16:58 Humalog* SUBCUT Not Given ACHS [facility] Protocol Lactobacillus Rhamnosus 1 tab 11/13/18 09:00 11/16/18 10:25 Lactobacillus Acidophilus* PO 1 tab DAILY ELROY Administration Lisinopril 40 mg 11/13/18 09:00 11/16/18 10:24 Prinivil Tab* PO 40 mg DAILY ELROY Administration Loperamide HCl 2 mg 11/12/18 19:31 11/15/18 00:02 Imodium Cap* PO 2 mg .SEE DIRECTIONS PRN Administration DIARRHEA Lorazepam 0.5 mg 11/15/18 16:31 11/15/18 20:55 Ativan Tab(*) PO 0.5 mg BEDTIME PRN Administration ANXIETY Magnesium Hydroxide 30 ml 11/12/18 14:09 Milk Of Magnesia Liq* PO Q6H PRN CONSTIPATION Metformin HCl 1,000 mg 11/12/18 17:00 11/16/18 16:57 Glucophage* PO 1,000 mg 0800,1700 ELROY Administration Metoclopramide HCl 5 mg 11/16/18 07:30 11/16/18 16:57 Reglan Tab* PO 5 mg AC ELROY Administration Senna 2 tab 11/12/18 14:09 Senokot Tab* PO BEDTIME PRN CONSTIPATION Sertraline HCl 25 mg 11/14/18 09:00 11/16/18 10:25 Zoloft* PO 25 mg DAILY ELROY Administration Sitagliptin Phosphate 100 mg 11/13/18 09:00 11/16/18 10:25 Januvia (Nf) PO 100 mg DAILY ELROY Administration Vital Signs: Vital Signs Temp Pulse Resp BP Pulse Ox 97.3 F 61 16 149/73 99 11/16/18 05:44 11/16/18 05:44 11/16/18 05:44 11/16/18 05:44 11/16/18 05:44 Lab Results: Laboratory Results - last 24 hr 11/15/18 11/16/18 11/16/18 20:45 07:44 12:01 POC Glucose (mg/dL) 123 H 130 H 150 H 11/16/18 16:55 POC Glucose (mg/dL) 74 Exam: HEENT: Right facial droop. Dysarthric, hypophonic LUNGS: Clear HEART: Occasional skipped beats ABDOMEN: Soft +BS EXTREMITIES: Starting to get tone in right UE and LE NEUROLOGIC: Trace hip flexion on right. No active arm movement seen, No DF or PF Assessment/Plan: 1. Left CVA with dense right hemiplegia: ASA. 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 2. DM: Metformin/glipizide/Januvia. SSI 3. HTN: Lisinopril 4. Hyperlipidemia: Lipitor 80 5. Diarrhea: Imodium PRN. Lactobacillus. 6. Dysphagia: Mechanical soft diet/nectar thickened liquids, free H2O between meals 7. DVT Prophylaxis: Lovenox 8. Dehydration: Check BUN/Cr 9. Advance Directives: Full code. is surrogate decision maker 11/16/18 18:22
[2018-11-16] MEDS: LORazepam TAB(*) 0.5 MG PO PRN (21:35)
[2018-11-16] MEDS: Enoxaparin(*) 40 MG/0.4 ML SYR SUBCUT SCH (21:36)
[2018-11-16] MEDS ORDERED: Cyclobenzaprine TAB* 10 MG PO PRN (23:50)
[2018-11-17] MEDS: Insulin LISPRO* 1 UNITS UNIT SUBCUT SCH ×4 (08:15→20:47)
[2018-11-17] MEDS: Metoclopramide TAB* 10 MG PO SCH ×3 (09:30→17:21)
[2018-11-17] MEDS: CMC:SitaGLIPtin (NF) 100 MG TAB PO SCH (09:35)
[2018-11-17] MEDS: metFORMIN* 1,000 MG TAB PO SCH ×2 (09:35→18:04)
[2018-11-17] MEDS: Lisinopril TAB* 10 MG PO SCH (09:35)
[2018-11-17] MEDS: Sertraline* 25 MG TAB PO SCH (09:35)
[2018-11-17] MEDS: Aspirin EC TAB* 325 MG PO SCH (09:36)
[2018-11-17] MEDS: Lactobacillus Acidophilus* 1 TAB PO SCH (09:36)
[2018-11-17] MEDS: glipiZIDE TAB.XL* 5 MG PO SCH (09:36)
[2018-11-17] MEDS: Famotidine TAB* 20 MG PO SCH ×2 (09:36→20:56)
--- NOTE | 2018-11-17 12:43 | PMRUTEAM ---
PMRU: Team Meeting Current Status: Nursing: Current Status Skin Deviations [Upper Back] Rash Skin Deviations [Right Arm] Bruise Skin Deviation Description [ lotion applied Upper Back] Skin Deviation Description [ unchanged from adm Right Arm] Physical Therapy: Current Status Bed Mobility Assistance Independent Transfer Mobility Assistance Total Assist,2 or More Person Assist Transfer/Bed Mobility Dorcas Lift Recommended Devices Ambulation Assistance Unable Stairs Assistance Not Tested Wheelchair Distance (ft) 100 Objective Comments Fitted with multi-podus boot; pt may benefit from slightly smaller boot if available Occupational Therapy: Current Status Upper Body Dressing Max Asst Lower Body Dressing Total Assist,2 Person Assist Bathing Max Asst,2 Person Assist Toileting Total Assist,2 Person Assist Toilet Transfer Total Assist,2 Person Assist Shower Transfer Total Assist,2 Person Assist Eating Supervision Rec Therapy: Current Status Summary of Assessment and Pt. has been open to regular visits - pt. has been Clinical Impression pleasant and has expressed gratitude for conversation with t/w. Treatment Goals Pt. will continue to engage in recreation while on the unit. Treatment Plan Continue to provide recreation services. Social Work: Current Status Discharge Plan return home with home care svs and family support Potential for Family Training pt's is involved and supportive Anticipated Discharge Home Destination Discharge With Home care svs and family support Speech: Current Status Assessment Patient is progressing as expected. Speech Current Status Goal 1 Mild impairment Speech Goal 2 Current Status Moderate impairment Speech Goal 3 Current Status Moderate-Severe impairment Goals: Physical Therapy: Initial Goals Bed Mobility Assistance Independent Transfer Mobility Assistance Independent Transfer/Bed Mobility Krishan Walker Recommended Devices Ambulation Independent Ambulation Recommended Devices Krishan Walker Ambulation Distance 5 Wheelchair Propulsion Ability Independent Physical Therapy: Updated Goals Transfer/Bed Mobility Dorcas Lift Recommended Devices Occupational Therapy: Initial Goals Goals to be Completed in (Days 42+ ) Upper Body Bathing Routine Independent Lower Body Bathing Routine Modified Independent with Upper Body Dressing Routine Independent Lower Body Dressing Routine Modified Independent with Toilet Hygeine and Clothing Modified Independent with Management Routine Toilet Transfer Routine Modified Independent with Step-In Shower Transfer Supervision/Set Up Routine Functional Transfers for ADL Modified Independent with Grooming Routine Independent Feeding Routine Independent Speech: Goals Speech Goal 1 Swallowing Speech Evaluation Status Goal Mild-moderate impairment 1 Speech Current Status Goal 1 Mild impairment Goal 1 Comments Long-Term Goal: Patient will I'ly follow precautions to tolerate least restrictive diet consistencies w/ no complications from aspiration. Status: Goals established Short Term Goals: 1) STG: Patient will demonstrate and follow swallowing exercises and compensatory strategies, to tolerate mechanical/ground diet texture and nectar thick liquids, w/ adequate PO intake and no clinical s/s aspiration, Independently 2) STC: Patient will I'ly follow precautions and compensatory strategies, to tolerate thin water between meals and after good oral hygiene, without regard to expected clinical s/s of aspiration, and with no complications from aspiration, Independently 3) STG: Patient will demonstrate and follow swallowing exercises and compensatory strategies, to tolerate regular diet consistency w/ no clinical s/s aspiration, Independently 4) STC: Patient will I'ly follow precautions and compensatory strategies, to tolerate thin liquids with no clinical s/s or complications from aspiration, Independently Status: Progressing as expected. Patient tolerated skilled trials of thin liquids with no clinical s/s aspiration, and reported he last coughed while drinking thin water 2 days ago. Speech Goal 2 Motor Speech Speech Goal 2 Evaluation Moderate impairment Status Speech Goal 2 Current Status Moderate impairment Speech Goal 2 Comments Motor-speech Long-Term Goal: Pt will I'ly speak with 100% intelligibility, Independently Status: Goals established Short-Term Goal 1: Pt will use compensatory strategies to increase speech to intelligibility to 100% in spontaneous conversational speech, given minimal cueing. Short-Term Goal 2: Pt will use compensatory articulation strategies to increase speech to intelligibility to 90% in structured speech activities, given Moderate cueing. Status: Progressing as expected. INSURANCE CLAIMS ADJUSTER provided skilled instruction in isolation exercises to improve range, symmetry and coordination of movement of labiafacial musculature. Patient demonstrated ability to imitate direct models and intensify isolated bilateral movements, with 10% improvement over initial assessment. Speech Goal 3 Voice Speech Goal 3 Evaluation Moderate-Severe impairment Status Speech Goal 3 Current Status Moderate-Severe impairment Speech Goal 3 Comments Voice Goals: Long-Term Goal: Pt will use compensatory strategies to increase vocal loudness, pitch range and tone quality to mild-moderate impairment, and speech to intelligibility to 95-100%, in spontaneous conversational speech, Independently, as observed by therapists, nursing and medical staff. Status: Goals established. Short-Term Goal: Pt will complete loud voice exercises and use compensatory strategies to increase vocal loudness, pitch range and tone quality to moderate impairment, and speech to intelligibility to 90%, in structured conversational speech, given moderate cueing, as observed by therapists, nursing and medical staff. Status: Progressing as expected. Patient demonstrated the ability to increase volume and control of thoraco-diaphragmatic breathing, and vocal tone by use of facilitation techniques: humming, sustained phonation, vocalization with nasal and close vowel sounds to reinforce harmonic vocal fold vibration. Patient demonstrated pitch range of 2 steps (do-re-mi). Social Work: Goals Discharge Plan return home with home care svs and family support Potential for Family Training pt's is involved and supportive Anticipated Discharge Home Destination Discharge With Home care svs and family support Care Plan: Care Plan ADL's - Improve/Maintain Start: 11/13/18 07:10 Freq: DAILY Status: Active Target: Protocol: Activity Type Activity Date Activity User E-Sign Co-Sign Detail Recorded Client Recorded Date Recorded By Document 11/13/18 07:10 [id number] [id number] 11/13/18 07:11 [id number] 11/13/18 07:10 PMRU Outcome: ADL's/ADL Transfers Orders/Interventions Occupational Therapy Evaluation & Treatment Communication Tool in Patient Room Patient to receive OT 5x/wk for 60-120 Therex min/day Self Care Management Group Therapy UE/LE ADL's with Assist Yes: mod I ADL Transfers with Assist Yes: mod I Toileting: Transfers,Clothing Management Yes: mod I ,Hygeine w/Assist Outcome/Goals Met Pt presents with RUE deficits ( strength, AROM, coordination), balance deficits, RLE weakness, decreased endurance and generalized weakness that affect his ability to complete bathing, dressing, toileting, toilet transfers, showering and feeding. Pt would benefit from skilled OT intervention in a rehabilitation setting to maximize independence with ADLs and ADL trasnfers. Pt is agreeable to OT POC. Family's questions were answered. Cardiovascular-Improve/Maintain Start: 11/13/18 00:55 Freq: DAILY@0400,1600 Status: Active Target: Protocol: Activity Type Activity Date Activity User E-Sign Co-Sign Detail Recorded Client Recorded Date Recorded By Document 11/17/18 01:40 [id number] [id number] 11/17/18 01:40 [id number] 11/17/18 01:40 Outcome: Cardiovascular Current Cardiovascular Outcome/Goal Improve HR within prescribed parameters Maintain/ improve perfusion Maintain/ achieve hemodynamic stability Free of abnormal cardiac symptoms Progression Towards Outcome/Goal Progressing Communication-Improve/Maintain Start: 03/29/19 12:14 Freq: DAILY Status: Active Target: Protocol: Activity Type Activity Date Activity User E-Sign Co-Sign Detail Recorded Client Recorded Date Recorded By Document 11/16/18 17:56 [id number] 11/16/18 17:57 [id number] 11/16/18 17:56 PMRU Outcome: Communication/Cognitive Status Other Outcomes/Goals Long-Term Goal: Patient will I 'ly follow precautions to tolerate least restrictive diet consistencies w / no complications from aspiration . Short Term Goals: 1) STG: Patient will demonstrate and follow swallowing exercises and compensatory strategies, to tolerate mechanical/ ground diet texture and nectar thick liquids, w/ adequate PO intake and no clinical s/s aspiration, Independently 2) STC: Patient will I' ly follow precautions and compensatory strategies, to tolerate thin water between meals and after good oral hygiene, without regard to expected clinical s/s of aspiration, and with no complications from aspiration , Independently 3) STG: Patient will demonstrate and follow swallowing exercises and compensatory strategies, to tolerate regular diet consistency w/ no clinical s/s aspiration, Independently 4) STC: Patient will I' ly follow precautions and compensatory strategies, to tolerate thin liquids with no clinical s/s or complications from aspiration , Independentl Status: Progressing as expected. Motor-speech Long-Term Goal: Pt will I'ly speak with 100% intelligibility , Independently Status: Goals established Short-Term Goal 1: Pt will use compensatory strategies to increase speech to intelligibility to 100% in spontaneous conversational speech, given minimal cueing. Short-Term Goal 2: Pt will use compensatory articulation strategies to increase speech to intelligibility to 90% in structured speech activities, given Moderate cueing. Status: Progressing as expected. INSURANCE CLAIMS ADJUSTER provided skilled instruction in isolation exercises to improve range, symmetry and coordination of movement of labiafacial musculature. Patient demonstrated ability to imitate direct models and intensify isolated bilateral movements. Voice Goals: Long-Term Goal: Pt will use compensatory strategies to increase vocal loudness, pitch range and tone quality to mild-moderate impairment, and speech to intelligibility to 95-100%, in spontaneous conversational speech, Independently, as observed by therapists, nursing and medical staff. Status: Goals established. Short-Term Goal : Pt will complete loud voice exercises and use compensatory strategies to increase vocal loudness, pitch range and tone quality to moderate impairment, and speech to intelligibility to 90%, in structured conversational speech, given moderate cueing , as observed by therapists, nursing and medical staff. Status: Progressing as expected Patient demonstrated the ability to increase volume and control of thoraco- diaphragmatic breathing, and vocal tone by use of facilitation techniques: humming, sustained phonation, vocalization with nasal and close vowel sounds to reinforce harmonic vocal fold vibration. Patient increase pitch range from 2 whole steps at low pitch, to 4 steps at higher pitch and with improved tone. Progression Toward Outcomes/Goals Progressing Outcome/Goals Met Comment Progressing as expected. Coping/Psych-Improve/Maintain Start: 11/16/18 15:42 Freq: QSHIFT Status: Active Target: Protocol: Activity Type Activity Date Activity User E-Sign Co-Sign Detail Recorded Client Recorded Date Recorded By Document 11/16/18 20:00 [id number] 11/17/18 00:37 [id number] 11/16/18 20:00 PMRU Outcome: Coping/Psychosocial Coping Outcome/Goals Verbalization of Acceptance of Rehab Admit Willingness to Participate in Treatment Plan and Basic Needs Utilization of Available Support Systems Absence of Destructive Behavior to Self/Others Psychosocial Outcome/Goals Maintain/ Improve Emotional Health Demonstrates Knowledge of Healthy Coping Mechanisms Available Cooperate/ Participate in Plan Progression Toward Outcome/Goals - Progressing Coping Progression Toward Outcome/Goals - Progressing Psychosocial DVT Prophylaxis- Improve/Maintain Start: 11/16/18 15:42 Freq: QSHIFT Status: Active Target: Protocol: Activity Type Activity Date Activity User E-Sign Co-Sign Detail Recorded Client Recorded Date Recorded By Document 11/16/18 20:00 [id number] [id number] 11/17/18 00:37 [id number] 11/16/18 20:00 PMRU Outcome: DVT Prophylaxis Outcome/Goals Remains Free of DVT Complies with DVT Prophylaxis /Treatment Demonstrates Knowledge of DVT Prevention/ Treatment TEDS Stockings on Every AM, Off at HS Progression Toward Outcome/Goals Progressing Discharge Planning Start: 11/13/18 00:55 Freq: DAILY@0400,1600 Status: Complete Target: Protocol: Activity Type Activity Date Activity User E-Sign Co-Sign Detail Recorded Client Recorded Date Recorded By Document 11/16/18 02:40 [id number] [id number] 11/16/18 02:40 [id number] 11/16/18 02:40 Outcome: Discharge Planning Outcome/Goals Demonstrates Understanding of Discharge Plan Necessary Services Arranged for Post Discharge Care Progression Toward Outcome/Goals Progressing Discharge Planning - Improve/Maintain Start: 11/16/18 15:42 Freq: DAILY Status: Active Target: Protocol: Activity Type Activity Date Activity User E-Sign Co-Sign Detail Recorded Client Recorded Date Recorded By Document 11/17/18 01:39 [id number] 11/17/18 01:39 [id number] 11/17/18 01:39 PMRU Outcome: Discharge Planning Update Patient Family No Outcome/Goals Demonstrates Understanding of Discharge Plan Education-Improve/Maintain Start: 11/16/18 15:42 Freq: QSHIFT Status: Active Target: Protocol: Activity Type Activity Date Activity User E-Sign Co-Sign Detail Recorded Client Recorded Date Recorded By Document 11/16/18 20:00 [id number] 11/17/18 00:37 [id number] 11/16/18 20:00 PMRU Outcome: Education Outcome/Goals Demonstrates Skills Encourage Questions Progression Toward Outcome/Goals Progressing Genitourinary-Improve/Maintain Start: 11/13/18 00:55 Freq: DAILY@0400,1600 Status: Complete Target: Protocol: Activity Type Activity Date Activity User E-Sign Co-Sign Detail Recorded Client Recorded Date Recorded By Document 11/16/18 02:40 [id number] [id number] 11/16/18 02:40 [id number] 11/16/18 02:40 Outcome: Genitourinary Outcome/Goals Maintain/ Achieve Urinary Continence Maintain/ Achieve Adequate Urinary Output Progression Toward Outcome/Goals Progressing Outcome/Goals Met Comment pt used urinal Medication Administration Start: 11/16/18 15:42 Freq: QSHIFT Status: Active Target: Protocol: Activity Type Activity Date Activity User E-Sign Co-Sign Detail Recorded Client Recorded Date Recorded By Document 11/16/18 20:00 [id number] 11/17/18 00:37 [id number] 11/16/18 20:00 PMRU Outcome: Medication Administration Assess Patient Knowledge/Teach Med Yes Education for all Meds Outcome/Goals Patient Independent with Medication Administration at Home Demonstrates Understanding Progression Towards Outcome/Goals Progressing Is Patient Going Home on Lovenox? No Metabolic Status- Improve/Maintain Start: 11/16/18 15:42 Freq: QSHIFT Status: Active Target: Protocol: Activity Type Activity Date Activity User E-Sign Co-Sign Detail Recorded Client Recorded Date Recorded By Document 11/16/18 20:00 [id number] [email or web address] 11/17/18 00:37 [id number] 11/16/18 20:00 PMRU Outcome: Metabolic Status Have Fingersticks Been Ordered Yes Fingerstick Order Frequency AC & HS Outcome/Goals Maintain/ Improve Metabolic Status Progression Toward Outcome/Goals Progressing Mobility- Improve/Maintain Start: 11/13/18 20:36 Freq: DAILY Status: Active Target: Protocol: Activity Type Activity Date Activity User E-Sign Co-Sign Detail Recorded Client Recorded Date Recorded By Document 11/13/18 20:36 [id number] [email or web address] 11/13/18 20:37 [id number] 11/13/18 20:36 PMRU Outcome: Mobility Physical Therapy Evaluation and Yes Treatment Activity OOB with Assistance Yes WBAT Yes Device Yes Assistance Yes Patient to be seen 5x/wk for 60-120 min/ Therex day for: Mobility Training Gait Training W/C Mobility Balance Other Outcome/Goals Maintain/ Achieve Baseline Mobility Status Improve Mobility Status Demonstrates Proper Use of Assistive Devices Free from Complications of Immobility Bed Mobility Yes: independent Transfers Yes: independent with krishan walker Gait x ft Yes: independent 5 feet with krishan walker W/C Mobility x ft Yes: independnet Neurological- Improve/Maintain Start: 11/16/18 15:42 Freq: QSHIFT Status: Active Target: Protocol: Activity Type Activity Date Activity User E-Sign Co-Sign Detail Recorded Client Recorded Date Recorded By Document 11/16/18 20:00 [id number] 11/17/18 00:37 [id number] 11/16/18 20:00 PMRU Outcome: Neurological Weakness/Aphasia Weakness Right Side Outcome/Goals Maintain/ Achieve Baseline Neurological Status Improve Neurological Status Prevent Avoidable Neurological Decline Demonstrate Knowledge of Prevention/Tx of Neuro Disorders/ Complication Maintain/ Improve Strength/ROM Progression Toward Outcome/Goals Progressing Nutrition-Improve/Maintain Start: 11/13/18 21:19 Freq: DAILY@0400,1600 Status: Complete Target: Protocol: Activity Type Activity Date Activity User E-Sign Co-Sign Detail Recorded Client Recorded Date Recorded By Document 11/16/18 02:40 [id number] [email or web address] 11/16/18 02:40 [id number] 11/16/18 02:40 Outcome: Nutrition Outcome/Goals Demonstrates Adequate Hydration Progression Toward Outcome/Goals Progressing Outcome/Goals Met Comment pt not eating much Nutrition/Swallowing- Improve/Maintain Start: 11/16/18 15:42 Freq: QSHIFT Status: Active Target: Protocol: Activity Type Activity Date Activity User E-Sign Co-Sign Detail Recorded Client Recorded Date Recorded By Document 11/16/18 20:00 [id number] [email or web address] 11/17/18 00:37 [id number] 11/16/18 20:00 PMRU Outcome: Nutrition/Swallowing Outcome/Goals Demonstrates Adequate Hydration/ Prevents Dehydration Maintain/ Improve Nutritional Status Progression Toward Outcome/Goals Progressing Safety- Improve/Maintain Start: 11/16/18 15:42 Freq: QSHIFT Status: Active Target: Protocol: Activity Type Activity Date Activity User E-Sign Co-Sign Detail Recorded Client Recorded Date Recorded By Document 11/16/18 20:00 [id number] [email or web address] 11/17/18 00:37 [id number] 11/16/18 20:00 PMRU Outcome: Safety Outcome/Goals Remain Free of Injury or Harm Cooperates with Safety Measures for Least Restrictive Environment Prevent Falls/ Injury Progression Toward Outcome/Goals Progressing Outcome/Goals Met Comment PA/ BA Skin- Improve/Maintain Start: 11/16/18 15:42 Freq: QSHIFT Status: Active Target: Protocol: Activity Type Activity Date Activity User E-Sign Co-Sign Detail Recorded Client Recorded Date Recorded By Document 11/16/18 20:00 [id number] [email or web address] 11/17/18 00:37 [id number] 11/16/18 20:00 PMRU Outcome: Skin Skin Risk Level High Skin Orders Spenco Boots Multipodus Boot Turn/Position q2hr While in Bed Outcome/Goals Maintain/ Improve Skin Intergrity Free from Decubitus Progression Toward Outcome/Goals Progressing Medicine Note: Length of Stay: 5 1/2 weeks Anticipated Discharge Destination: Home Tentative Discharge Date: 12/25/18 Discharged to: Home
[2018-11-17] MEDS: Atorvastatin* 80 MG TAB PO SCH (18:04)
--- NOTE | 2018-11-17 18:06 | PN ---
Progress Note Date of Service: 11/17/18 Note: KEERTHI LEHMAN was visited. Therapy notes read and reviewed. He was discussed in interdisciplinary team rounds. He remains impaired. Was able to sit unsupported for brief periods today. No vomiting. Eating better Current Medications: Active Medications Generic Name Dose Route Start Last Admin Trade Name Freq PRN Reason Stop Dose Admin Acetaminophen 650 mg 11/12/18 18:05 11/15/18 20:55 Tylenol Tab* PO 650 mg Q6H PRN Administration FEVER/PAIN Al Hydrox/Mg Hydrox/Simethicone 30 ml 11/13/18 13:46 11/13/18 13:57 Maalox Plus* PO 30 ml Q4H PRN Administration DYSPEPSIA Aspirin 325 mg 11/13/18 09:00 11/17/18 09:36 Ecotrin Ec Tab* PO 325 mg DAILY ELROY Administration Atorvastatin Calcium 80 mg 11/12/18 17:00 11/16/18 16:56 Lipitor* PO 80 mg 1700 ELROY Administration Bisacodyl 10 mg 11/12/18 14:09 Dulcolax Supp* ME DAILY PRN CONSTIPATION Cyclobenzaprine HCl 10 mg 11/16/18 23:50 Flexeril Tab* PO Q8H PRN SPASMS Dextrose 12.5 gm 11/12/18 14:42 D50w Syringe 50 Ml* IV PUSH .FOR FS < 60 - SS PRN FS < 60 Docusate Sodium 100 mg 11/12/18 19:32 Colace Cap* PO BID PRN CONSTIPATION Enoxaparin Sodium 40 mg 11/12/18 20:30 11/16/18 21:36 Lovenox(*) SUBCUT 40 mg Q24H ELROY Administration Famotidine 20 mg 11/13/18 21:00 11/17/18 09:36 Pepcid Tab* PO 20 mg BID ELROY Administration Glipizide 10 mg 11/13/18 09:00 11/17/18 09:36 Glucotrol Xl* PO 10 mg DAILY ELROY Administration Insulin Human Lispro 0 - 10 units 11/12/18 16:30 11/17/18 12:20 Humalog* SUBCUT Not Given ACHS [facility] Protocol Lactobacillus Rhamnosus 1 tab 11/13/18 09:00 11/17/18 09:36 Lactobacillus Acidophilus* PO 1 tab DAILY ELROY Administration Lisinopril 40 mg 11/13/18 09:00 11/17/18 09:35 Prinivil Tab* PO 40 mg DAILY ELROY Administration Loperamide HCl 2 mg 11/12/18 19:31 11/15/18 00:02 Imodium Cap* PO 2 mg .SEE DIRECTIONS PRN Administration DIARRHEA Lorazepam 0.5 mg 11/15/18 16:31 11/16/18 21:35 Ativan Tab(*) PO 0.5 mg BEDTIME PRN Administration ANXIETY Magnesium Hydroxide 30 ml 11/12/18 14:09 Milk Of Magnesia Liq* PO Q6H PRN CONSTIPATION Metformin HCl 1,000 mg 11/12/18 17:00 11/17/18 09:35 Glucophage* PO 1,000 mg 0800,1700 ELROY Administration Metoclopramide HCl 5 mg 11/16/18 07:30 11/17/18 17:21 Reglan Tab* PO 5 mg AC ELROY Administration Senna 2 tab 11/12/18 14:09 Senokot Tab* PO BEDTIME PRN CONSTIPATION Sertraline HCl 25 mg 11/14/18 09:00 11/17/18 09:35 Zoloft* PO 25 mg DAILY ELROY Administration Sitagliptin Phosphate 100 mg 11/13/18 09:00 11/17/18 09:35 Januvia (Nf) PO 100 mg DAILY ELROY Administration Vital Signs: Vital Signs Temp Pulse Resp BP Pulse Ox 98.3 F 71 20 159/66 99 11/17/18 16:00 11/17/18 16:00 11/17/18 16:00 11/17/18 16:00 11/17/18 16:00 Lab Results: Laboratory Results - last 24 hr 11/16/18 11/16/18 11/17/18 21:26 22:13 08:11 POC Glucose (mg/dL) 54 L 90 107 H 11/17/18 11/17/18 12:28 16:18 POC Glucose (mg/dL) 127 H 107 H Exam: HEENT: Right facial droop. Dysarthric, hypophonic LUNGS: Clear HEART: Occasional skipped beats ABDOMEN: Soft +BS EXTREMITIES: Starting to get tone in right UE and LE NEUROLOGIC: Perhaps Trace hip flexion on right. No active arm movement seen, No DF or PF Assessment/Plan: 1. Left CVA with dense right hemiplegia: ASA. 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 2. DM: Metformin/glipizide/Januvia. SSI 3. HTN: Lisinopril 4. Hyperlipidemia: Lipitor 80 5. Diarrhea: Improving 6. Dysphagia: Mechanical soft diet/nectar thickened liquids, free H2O between meals 7. DVT Prophylaxis: Lovenox 8. Dehydration: Check BUN/Cr 9. Advance Directives: Full code. is surrogate decision maker 11/17/18 18:06
[2018-11-17] MEDS: Enoxaparin(*) 40 MG/0.4 ML SYR SUBCUT SCH (20:57)
[2018-11-17] MEDS: Senna TAB PO PRN (20:57)
[2018-11-17] MEDS: Docusate CAP* 100 MG PO PRN (20:57)
[2018-11-17] MEDS: Bisacodyl SUPP* 10 MG SUPP PR PRN (21:08)
[2018-11-18] MEDS: Metoclopramide TAB* 10 MG PO SCH ×3 (07:40→16:40)
[2018-11-18] MEDS: metFORMIN* 1,000 MG TAB PO SCH ×2 (07:42→16:39)
[2018-11-18] MEDS: Sertraline* 25 MG TAB PO SCH (09:27)
[2018-11-18] MEDS: Lisinopril TAB* 10 MG PO SCH (09:27)
[2018-11-18] MEDS: Insulin LISPRO* 1 UNITS UNIT SUBCUT SCH ×4 (09:27→20:51)
[2018-11-18] MEDS: Lactobacillus Acidophilus* 1 TAB PO SCH (09:28)
[2018-11-18] MEDS: glipiZIDE TAB.XL* 5 MG PO SCH (09:28)
[2018-11-18] MEDS: Famotidine TAB* 20 MG PO SCH ×2 (09:28→20:48)
[2018-11-18] MEDS: Aspirin EC TAB* 325 MG PO SCH (09:28)
[2018-11-18] MEDS: CMC:SitaGLIPtin (NF) 100 MG TAB PO SCH (09:28)
[2018-11-18] MEDS: Atorvastatin* 80 MG TAB PO SCH (16:39)
--- NOTE | 2018-11-18 18:31 | PN ---
Progress Note Date of Service: 11/18/18 Note: KEERTHI LEHMAN was visited. Therapy notes read and reviewed. He has had some low fingerstick readings which are low. He is not eating much. With speech therapy, he has been cleared for thin liquids. He is having spasticity in the right lower extremity that prevents him from sleeping Current Medications: Active Medications Generic Name Dose Route Start Last Admin Trade Name Freq PRN Reason Stop Dose Admin Acetaminophen 650 mg 11/12/18 18:05 11/15/18 20:55 Tylenol Tab* PO 650 mg Q6H PRN Administration FEVER/PAIN Al Hydrox/Mg Hydrox/Simethicone 30 ml 11/13/18 13:46 11/13/18 13:57 Maalox Plus* PO 30 ml Q4H PRN Administration DYSPEPSIA Aspirin 325 mg 11/13/18 09:00 11/18/18 09:28 Ecotrin Ec Tab* PO 325 mg DAILY ELROY Administration Atorvastatin Calcium 80 mg 11/12/18 17:00 11/18/18 16:39 Lipitor* PO 80 mg 1700 ELROY Administration Bisacodyl 10 mg 11/12/18 14:09 11/17/18 21:08 Dulcolax Supp* [place] 10 mg DAILY PRN Administration CONSTIPATION Cyclobenzaprine HCl 10 mg 11/16/18 23:50 Flexeril Tab* PO Q8H PRN SPASMS Dextrose 12.5 gm 11/12/18 14:42 D50w Syringe 50 Ml* IV PUSH .FOR FS < 60 - SS PRN FS < 60 Docusate Sodium 100 mg 11/12/18 19:32 11/17/18 20:57 Colace Cap* PO 100 mg BID PRN Administration CONSTIPATION Enoxaparin Sodium 40 mg 11/12/18 20:30 11/17/18 20:57 Lovenox(*) SUBCUT 40 mg Q24H ELROY Administration Famotidine 20 mg 11/13/18 21:00 11/18/18 09:28 Pepcid Tab* PO 20 mg BID ELROY Administration Glipizide 2.5 mg 11/19/18 09:00 Glucotrol Xl* PO DAILY [facility] Insulin Human Lispro 0 - 10 units 11/12/18 16:30 11/18/18 17:29 Humalog* SUBCUT Not Given ACHS [facility] Protocol Lactobacillus Rhamnosus 1 tab 11/13/18 09:00 11/18/18 09:28 Lactobacillus Acidophilus* PO 1 tab DAILY ELROY Administration Lisinopril 40 mg 11/13/18 09:00 11/18/18 09:27 Prinivil Tab* PO 40 mg DAILY ELROY Administration Loperamide HCl 2 mg 11/12/18 19:31 11/15/18 00:02 Imodium Cap* PO 2 mg .SEE DIRECTIONS PRN Administration DIARRHEA Lorazepam 0.5 mg 11/15/18 16:31 11/16/18 21:35 Ativan Tab(*) PO 0.5 mg BEDTIME PRN Administration ANXIETY Magnesium Hydroxide 30 ml 11/12/18 14:09 Milk Of Magnesia Liq* PO Q6H PRN CONSTIPATION Metformin HCl 1,000 mg 11/12/18 17:00 11/18/18 16:39 Glucophage* PO 1,000 mg 0800,1700 ELROY Administration Metoclopramide HCl 5 mg 11/16/18 07:30 11/18/18 16:40 Reglan Tab* PO 5 mg AC ELROY Administration Senna 2 tab 11/12/18 14:09 11/17/18 20:57 Senokot Tab* PO 2 tab BEDTIME PRN Administration CONSTIPATION Sertraline HCl 25 mg 11/14/18 09:00 11/18/18 09:27 Zoloft* PO 25 mg DAILY ELROY Administration Sitagliptin Phosphate 100 mg 11/13/18 09:00 11/18/18 09:28 Januvia (Nf) PO 100 mg DAILY ELROY Administration Vital Signs: Vital Signs Temp Pulse Resp BP Pulse Ox 98.3 F 73 20 140/64 95 11/18/18 16:56 11/18/18 16:56 11/18/18 16:56 11/18/18 16:56 11/18/18 16:56 Lab Results: Laboratory Results - last 24 hr 11/17/18 11/17/18 11/17/18 20:30 20:54 21:27 POC Glucose (mg/dL) 50 L 47 L 61 L 11/17/18 11/17/18 11/18/18 21:41 22:07 07:36 POC Glucose (mg/dL) 68 L 87 131 H 11/18/18 11/18/18 12:09 16:39 POC Glucose (mg/dL) 111 H 133 H Exam: HEENT: Right facial droop. Dysarthric, hypophonic LUNGS: Clear HEART: Occasional skipped beats ABDOMEN: Soft +BS EXTREMITIES: Increased tone in right UE and LE NEUROLOGIC: Perhaps Trace hip flexion on right. No active arm movement seen, No DF or PF Assessment/Plan: 1. Left CVA with dense right hemiplegia: ASA. 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 2. DM: Metformin/glipizide/Januvia. SSI 3. HTN: Lisinopril 4. Hyperlipidemia: Lipitor 80 5. Diarrhea: Improving 6. Dysphagia: Mechanical soft diet/thin liquids 7. DVT Prophylaxis: Lovenox 8. Dehydration: Re-Check BUN/Cr 9. Advance Directives: Full code. is surrogate decision maker 11/18/18 18:33
[2018-11-18] MEDS: Baclofen TAB* 10 MG PO SCH (20:47)
[2018-11-18] MEDS: Enoxaparin(*) 40 MG/0.4 ML SYR SUBCUT SCH (20:49)
[2018-11-18] MEDS: LORazepam TAB(*) 0.5 MG PO PRN (21:15)
[2018-11-19] MEDS ORDERED: glipiZIDE TAB.XL* 2.5 MG PO SCH (09:00)
[2018-11-19] MEDS: Insulin LISPRO* 1 UNITS UNIT SUBCUT SCH ×4 (09:47→22:11)
[2018-11-19] MEDS: Sertraline* 25 MG TAB PO SCH (09:48)
[2018-11-19] MEDS: metFORMIN* 1,000 MG TAB PO SCH ×2 (09:48→17:48)
[2018-11-19] MEDS: CMC:SitaGLIPtin (NF) 100 MG TAB PO SCH (09:48)
[2018-11-19] MEDS: Aspirin EC TAB* 325 MG PO SCH (09:49)
[2018-11-19] MEDS: Famotidine TAB* 20 MG PO SCH ×2 (09:49→21:33)
[2018-11-19] MEDS: Lisinopril TAB* 10 MG PO SCH (09:49)
[2018-11-19] MEDS: Lactobacillus Acidophilus* 1 TAB PO SCH (09:49)
[2018-11-19] MEDS: Baclofen TAB* 10 MG PO SCH ×2 (09:50→21:33)
[2018-11-19] MEDS: Metoclopramide TAB* 10 MG PO SCH ×3 (09:51→17:48)
[2018-11-19] MEDS: Atorvastatin* 80 MG TAB PO SCH (17:48)
--- NOTE | 2018-11-19 21:19 | PN ---
Progress Note Date of Service: 11/19/18 Note: KEERTHI LEHMAN was visited. Therapy notes read and reviewed. He has no complaints except fatigue. His blood sugars were again low at 1700. Will keep glyburide XL at 2.5 mg; may need to lower metformin or eliminate sliding scale Current Medications: Active Medications Generic Name Dose Route Start Last Admin Trade Name Freq PRN Reason Stop Dose Admin Acetaminophen 650 mg 11/12/18 18:05 11/15/18 20:55 Tylenol Tab* PO 650 mg Q6H PRN Administration FEVER/PAIN Al Hydrox/Mg Hydrox/Simethicone 30 ml 11/13/18 13:46 11/13/18 13:57 Maalox Plus* PO 30 ml Q4H PRN Administration DYSPEPSIA Aspirin 325 mg 11/13/18 09:00 11/19/18 09:49 Ecotrin Ec Tab* PO 325 mg DAILY ELROY Administration Atorvastatin Calcium 80 mg 11/12/18 17:00 11/19/18 17:48 Lipitor* PO 80 mg 1700 ELROY Administration Baclofen 5 mg 11/18/18 21:00 11/19/18 09:50 Lioresal Tab* PO 5 mg BID ELROY Administration Bisacodyl 10 mg 11/12/18 14:09 11/17/18 21:08 Dulcolax Supp* [place] 10 mg DAILY PRN Administration CONSTIPATION Dextrose 12.5 gm 11/12/18 14:42 D50w Syringe 50 Ml* IV PUSH .FOR FS < 60 - SS PRN FS < 60 Docusate Sodium 100 mg 11/12/18 19:32 11/17/18 20:57 Colace Cap* PO 100 mg BID PRN Administration CONSTIPATION Enoxaparin Sodium 40 mg 11/12/18 20:30 11/18/18 20:49 Lovenox(*) SUBCUT 40 mg Q24H ELROY Administration Famotidine 20 mg 11/13/18 21:00 11/19/18 09:49 Pepcid Tab* PO 20 mg BID ELROY Administration Glipizide 2.5 mg 11/20/18 09:00 Glucotrol Xl* PO DAILY ELROY Lactobacillus Rhamnosus 1 tab 11/13/18 09:00 11/19/18 09:49 Lactobacillus Acidophilus* PO 1 tab DAILY ELROY Administration Lisinopril 40 mg 11/13/18 09:00 11/19/18 09:49 Prinivil Tab* PO 40 mg DAILY ELROY Administration Loperamide HCl 2 mg 11/12/18 19:31 11/15/18 00:02 Imodium Cap* PO 2 mg .SEE DIRECTIONS PRN Administration DIARRHEA Lorazepam 0.5 mg 11/15/18 16:31 11/18/18 21:15 Ativan Tab(*) PO 0.5 mg BEDTIME PRN Administration ANXIETY Magnesium Hydroxide 30 ml 11/12/18 14:09 Milk Of Magnesia Liq* PO Q6H PRN CONSTIPATION Metformin HCl 1,000 mg 11/12/18 17:00 11/19/18 17:48 Glucophage* PO 1,000 mg 0800,1700 ELROY Administration Metoclopramide HCl 5 mg 11/16/18 07:30 11/19/18 17:48 Reglan Tab* PO 5 mg AC ELROY Administration Senna 2 tab 11/12/18 14:09 11/17/18 20:57 Senokot Tab* PO 2 tab BEDTIME PRN Administration CONSTIPATION Sertraline HCl 25 mg 11/14/18 09:00 11/19/18 09:48 Zoloft* PO 25 mg DAILY ELROY Administration Sitagliptin Phosphate 100 mg 11/13/18 09:00 11/19/18 09:48 Januvia (Nf) PO 100 mg DAILY ELROY Administration Vital Signs: Vital Signs Temp Pulse Resp BP Pulse Ox 97.5 F 74 20 117/64 98 11/19/18 16:11 11/19/18 16:11 11/19/18 16:11 11/19/18 16:11 11/19/18 16:11 Lab Results: Laboratory Results - last 24 hr 11/18/18 11/18/18 11/18/18 20:56 21:17 21:45 POC Glucose (mg/dL) 60 L 62 L 83 11/19/18 11/19/18 11/19/18 07:28 12:15 16:58 POC Glucose (mg/dL) 140 H 179 H 69 L 11/19/18 17:44 POC Glucose (mg/dL) 99 Exam: HEENT: Right facial droop. Dysarthric, hypophonic LUNGS: Clear HEART: Occasional skipped beats ABDOMEN: Soft +BS EXTREMITIES: Increased tone in right UE and LE NEUROLOGIC: Perhaps Trace hip flexion on right. No active arm movement seen, No DF or PF Assessment/Plan: 1. Left CVA with dense right hemiplegia: ASA. 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 2. DM: Metformin/glipizide/Januvia. SSI. Decrease Sliding scale, decrease glyburide XL 3. HTN: Lisinopril 4. Hyperlipidemia: Lipitor 80 5. Diarrhea: Improving 6. Dysphagia: Mechanical soft diet/thin liquids 7. DVT Prophylaxis: Lovenox 8. Dehydration: Re-Check BUN/Cr 9. Advance Directives: Full code. is surrogate decision maker 11/19/18 21:19 11/19/18 21:20
[2018-11-19] MEDS: Enoxaparin(*) 40 MG/0.4 ML SYR SUBCUT SCH (21:35)
[2018-11-20 05:18] LABS: ABS Basophils 0.1 10^3/ul (0-0.2); ABS Eosinophils 0.4 10^3/ul (0-0.6); ABS Lymphocytes 1.6 10^3/ul (1.0-4.8); ABS Monocytes 1.1 10^3/ul (0-0.8); ABS Neutrophils 5.9 10^3/ul (1.5-7.7); ABS Nucleated RBC 0 10^3/ul; Hematocrit 42 % (36-46); Hemoglobin 13.7 g/dL (14.0-18.0); Lymphocyte % 17.9 %; Mean Corpuscular HGB Conc 33 g/dL (31-36); Mean Corpuscular Hemoglobin 30 pg (27-31); Mean Corpuscular Volume 91 fL (80-94); Mean Platelet Volume 9.6 fL (7.4-10.4); Nucleated Red Blood Cells % 0; Platelet Count 254 10^3/uL (150-450); Red Blood Count 4.56 10^6 /uL (4.18-5.48); Red Cell Distribution Width 14 % (10.5-15); White Blood Count 9.1 10^3/uL (3.5-10.8)
[2018-11-20 05:38] LABS: Albumin 3.7 g/dL (3.2-5.2); Albumin/Globulin Ratio 1.4 (1-3); BUN/Creatinine Ratio 30.4 (8-20); Calcium 10.2 mg/dL (8.6-10.3); EGFR African American 62.7 (>60); EGFR Non-African American 51.8 (>60); Globulin 2.6 g/dL (2-4); Potassium 4.7 mmol/L (3.5-5.0); Total Bilirubin 0.4 mg/dL (0.2-1.0); Total Protein 6.3 g/dL (6.4-8.9)
[2018-11-20] MEDS: glipiZIDE TAB.XL* 2.5 MG PO SCH (08:30)
[2018-11-20] MEDS: Metoclopramide TAB* 10 MG PO SCH ×3 (08:30→17:07)
[2018-11-20] MEDS: Lactobacillus Acidophilus* 1 TAB PO SCH (08:30)
[2018-11-20] MEDS: Lisinopril TAB* 10 MG PO SCH (08:31)
[2018-11-20] MEDS: CMC:SitaGLIPtin (NF) 100 MG TAB PO SCH (08:33)
[2018-11-20] MEDS: Aspirin EC TAB* 325 MG PO SCH (08:33)
[2018-11-20] MEDS: Baclofen TAB* 10 MG PO SCH ×2 (08:34→20:53)
[2018-11-20] MEDS: Sertraline* 25 MG TAB PO SCH (08:35)
[2018-11-20] MEDS: Famotidine TAB* 20 MG PO SCH ×2 (08:35→20:53)
[2018-11-20] MEDS: metFORMIN* 1,000 MG TAB PO SCH (08:35)
[2018-11-20] MEDS: Insulin LISPRO* 1 UNITS UNIT SUBCUT SCH ×4 (08:37→20:57)
[2018-11-20] MEDS ORDERED: glipiZIDE TAB.XL* 5 MG PO SCH (09:00)
--- NOTE | 2018-11-20 10:15 | PN ---
Progress Note Date of Service: 11/20/18 Note: KEERTHI LEHMAN was visited. Nursing and therapy notes read and reviewed. No chest pain, shortness of breath or abdominal pain. Current Medications: Active Medications Generic Name Dose Route Start Last Admin Trade Name Freq PRN Reason Stop Dose Admin Acetaminophen 650 mg 11/12/18 18:05 11/15/18 20:55 Tylenol Tab* PO 650 mg Q6H PRN Administration FEVER/PAIN Al Hydrox/Mg Hydrox/Simethicone 30 ml 11/13/18 13:46 11/13/18 13:57 Maalox Plus* PO 30 ml Q4H PRN Administration DYSPEPSIA Aspirin 325 mg 11/13/18 09:00 11/20/18 08:33 Ecotrin Ec Tab* PO 325 mg DAILY ELROY Administration Atorvastatin Calcium 80 mg 11/12/18 17:00 11/19/18 17:48 Lipitor* PO 80 mg 1700 ELROY Administration Baclofen 5 mg 11/18/18 21:00 11/20/18 08:34 Lioresal Tab* PO 5 mg BID ELROY Administration Bisacodyl 10 mg 11/12/18 14:09 11/17/18 21:08 Dulcolax Supp* [place] 10 mg DAILY PRN Administration CONSTIPATION Dextrose 12.5 gm 11/12/18 14:42 D50w Syringe 50 Ml* IV PUSH .FOR FS < 60 - SS PRN FS < 60 Docusate Sodium 100 mg 11/12/18 19:32 11/17/18 20:57 Colace Cap* PO 100 mg BID PRN Administration CONSTIPATION Enoxaparin Sodium 40 mg 11/12/18 20:30 11/19/18 21:35 Lovenox(*) SUBCUT 40 mg Q24H ELROY Administration Famotidine 20 mg 11/13/18 21:00 11/20/18 08:35 Pepcid Tab* PO 20 mg BID ELROY Administration Glipizide 2.5 mg 11/20/18 09:00 11/20/18 08:30 Glucotrol Xl* PO 2.5 mg DAILY ELROY Administration Insulin Human Lispro 0 - 5 units 11/20/18 07:30 11/20/18 08:37 Humalog* SUBCUT 1 units ACHS ELROY Administration Protocol Lactobacillus Rhamnosus 1 tab 11/13/18 09:00 11/20/18 08:30 Lactobacillus Acidophilus* PO 1 tab DAILY ELROY Administration Lisinopril 40 mg 11/13/18 09:00 11/20/18 08:31 Prinivil Tab* PO 40 mg DAILY ELROY Administration Loperamide HCl 2 mg 11/12/18 19:31 11/15/18 00:02 Imodium Cap* PO 2 mg .SEE DIRECTIONS PRN Administration DIARRHEA Lorazepam 0.5 mg 11/15/18 16:31 11/18/18 21:15 Ativan Tab(*) PO 0.5 mg BEDTIME PRN Administration ANXIETY Magnesium Hydroxide 30 ml 11/12/18 14:09 Milk Of Magnesia Liq* PO Q6H PRN CONSTIPATION Metformin HCl 1,000 mg 11/12/18 17:00 11/20/18 08:35 Glucophage* PO 1,000 mg 0800,1700 ELROY Administration Metoclopramide HCl 5 mg 11/16/18 07:30 11/20/18 08:30 Reglan Tab* PO 5 mg AC ELROY Administration Senna 2 tab 11/12/18 14:09 11/17/18 20:57 Senokot Tab* PO 2 tab BEDTIME PRN Administration CONSTIPATION Sertraline HCl 25 mg 11/14/18 09:00 11/20/18 08:35 Zoloft* PO 25 mg DAILY ELROY Administration Sitagliptin Phosphate 100 mg 11/13/18 09:00 11/20/18 08:33 Januvia (Nf) PO 100 mg DAILY ELROY Administration Vital Signs: Vital Signs Temp Pulse Resp BP Pulse Ox 97.4 F 66 16 125/62 96 11/20/18 06:00 11/20/18 06:00 11/20/18 06:00 11/20/18 06:00 11/20/18 06:00 Lab Results: Laboratory Results - last 24 hr 11/19/18 11/19/18 11/19/18 12:15 16:58 17:44 WBC RBC Hgb Hct MCV MCH MCHC RDW Plt Count MPV Neut % (Auto) Lymph % (Auto) [place] % (Auto) Eos % (Auto) Baso % (Auto) Absolute Neuts (auto) Absolute Lymphs (auto) Absolute Monos (auto) Absolute Eos (auto) Absolute Basos (auto) Absolute Nucleated RBC Nucleated RBC % Sodium Potassium Chloride Carbon Dioxide Anion Gap BUN Creatinine Est GFR ( Amer) Est GFR (Non-Af Amer) BUN/Creatinine Ratio Glucose POC Glucose (mg/dL) 179 H 69 L 99 Calcium Total Bilirubin AST ALT Alkaline Phosphatase Total Protein Albumin Globulin Albumin/Globulin Ratio 11/19/18 11/20/18 11/20/18 21:34 04:53 04:53 WBC 9.1 RBC 4.56 Hgb 13.7 L Hct 42 MCV 91 MCH 30 MCHC 33 RDW 14 Plt Count 254 MPV 9.6 Neut % (Auto) 64.8 Lymph % (Auto) 17.9 [place] % (Auto) 11.9 Eos % (Auto) 4.0 Baso % (Auto) 1.4 Absolute Neuts (auto) 5.9 Absolute Lymphs (auto) 1.6 Absolute Monos (auto) 1.1 H Absolute Eos (auto) 0.4 Absolute Basos (auto) 0.1 Absolute Nucleated RBC 0 Nucleated RBC % 0 Sodium 137 Potassium 4.7 Chloride 107 Carbon Dioxide 21 L Anion Gap 9 BUN 41 H Creatinine 1.35 H Est GFR ( Amer) 62.7 Est GFR (Non-Af Amer) 51.8 BUN/Creatinine Ratio 30.4 H Glucose 144 H POC Glucose (mg/dL) 80 Calcium 10.2 Total Bilirubin 0.40 AST 22 ALT 37 Alkaline Phosphatase 61 Total Protein 6.3 L Albumin 3.7 Globulin 2.6 Albumin/Globulin Ratio 1.4 11/20/18 08:09 WBC RBC Hgb Hct MCV MCH MCHC RDW Plt Count MPV Neut % (Auto) Lymph % (Auto) [place] % (Auto) Eos % (Auto) Baso % (Auto) Absolute Neuts (auto) Absolute Lymphs (auto) Absolute Monos (auto) Absolute Eos (auto) Absolute Basos (auto) Absolute Nucleated RBC Nucleated RBC % Sodium Potassium Chloride Carbon Dioxide Anion Gap BUN Creatinine Est GFR ( Amer) Est GFR (Non-Af Amer) BUN/Creatinine Ratio Glucose POC Glucose (mg/dL) 157 H Calcium Total Bilirubin AST ALT Alkaline Phosphatase Total Protein Albumin Globulin Albumin/Globulin Ratio Exam: GEN: no acute distress. alert and appropriate with dysarthria and hypophonia LUNGS: Clear to auscultation bilaterally. HEART: regular rate and rhythm ABDOMEN: Soft, + bowel sound, non-tender, non-distended EXTREMITIES: Mildly increased tone in right UE and LE. No edema. NEUROLOGIC: 5/5 motor in LUE and LLE. 0/5 throughout RUE and RLE. Sensation intact x4. Right fascial droop. Assessment/Plan: 1. Left CVA with dense right hemiplegia: ASA. 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 2. DM: glipizide/Januvia. SSI. Will d/c metformin for now due to increased creatinine. Consider restart if Cr improves. 3. HTN: Lisinopril 4. Hyperlipidemia: Lipitor 80mg qday 5. Diarrhea: Improving 6. Dysphagia: Mechanical soft diet/thin liquids 7. DVT Prophylaxis: Lovenox 8. Dehydration: Increased Cr with lower BUN/Cr ratio. d/c metformin for now. 9. Advance Directives: Full code. is surrogate decision maker 11/20/18 10:13
[2018-11-20] MEDS: Atorvastatin* 80 MG TAB PO SCH (17:07)
[2018-11-20] MEDS: LORazepam TAB(*) 0.5 MG PO PRN (20:53)
[2018-11-20] MEDS: Enoxaparin(*) 40 MG/0.4 ML SYR SUBCUT SCH (20:55)
[2018-11-21] MEDS: Insulin LISPRO* 1 UNITS UNIT SUBCUT SCH ×4 (10:22→21:03)
--- NOTE | 2018-11-21 10:34 | PN ---
Progress Note Date of Service: 11/21/18 Note: KEERTHI LEHMAN was visited. Nursing and therapy notes read and reviewed. No chest pain, shortness of breath or abdominal pain. Current Medications: Active Medications Generic Name Dose Route Start Last Admin Trade Name Freq PRN Reason Stop Dose Admin Acetaminophen 650 mg 11/12/18 18:05 11/15/18 20:55 Tylenol Tab* PO 650 mg Q6H PRN Administration FEVER/PAIN Al Hydrox/Mg Hydrox/Simethicone 30 ml 11/13/18 13:46 11/13/18 13:57 Maalox Plus* PO 30 ml Q4H PRN Administration DYSPEPSIA Aspirin 325 mg 11/13/18 09:00 11/20/18 08:33 Ecotrin Ec Tab* PO 325 mg DAILY ELROY Administration Atorvastatin Calcium 80 mg 11/12/18 17:00 11/20/18 17:07 Lipitor* PO 80 mg 1700 ELROY Administration Baclofen 5 mg 11/18/18 21:00 11/20/18 20:53 Lioresal Tab* PO 5 mg BID ELROY Administration Bisacodyl 10 mg 11/12/18 14:09 11/17/18 21:08 Dulcolax Supp* [place] 10 mg DAILY PRN Administration CONSTIPATION Dextrose 12.5 gm 11/12/18 14:42 D50w Syringe 50 Ml* IV PUSH .FOR FS < 60 - SS PRN FS < 60 Docusate Sodium 100 mg 11/12/18 19:32 11/17/18 20:57 Colace Cap* PO 100 mg BID PRN Administration CONSTIPATION Enoxaparin Sodium 40 mg 11/12/18 20:30 11/20/18 20:55 Lovenox(*) SUBCUT 40 mg Q24H ELROY Administration Famotidine 20 mg 11/13/18 21:00 11/20/18 20:53 Pepcid Tab* PO 20 mg BID ELROY Administration Glipizide 2.5 mg 11/20/18 09:00 11/20/18 08:30 Glucotrol Xl* PO 2.5 mg DAILY ELROY Administration Insulin Human Lispro 0 - 5 units 11/20/18 07:30 11/21/18 10:22 Humalog* SUBCUT Not Given ACHS [facility] Protocol Lactobacillus Rhamnosus 1 tab 11/13/18 09:00 11/20/18 08:30 Lactobacillus Acidophilus* PO 1 tab DAILY ELROY Administration Lisinopril 40 mg 11/13/18 09:00 11/20/18 08:31 Prinivil Tab* PO 40 mg DAILY ELROY Administration Loperamide HCl 2 mg 11/12/18 19:31 11/15/18 00:02 Imodium Cap* PO 2 mg .SEE DIRECTIONS PRN Administration DIARRHEA Lorazepam 0.5 mg 11/15/18 16:31 11/20/18 20:53 Ativan Tab(*) PO 0.5 mg BEDTIME PRN Administration ANXIETY Magnesium Hydroxide 30 ml 11/12/18 14:09 Milk Of Magnesia Liq* PO Q6H PRN CONSTIPATION Metoclopramide HCl 5 mg 11/16/18 07:30 11/20/18 17:07 Reglan Tab* PO 5 mg AC ELROY Administration Senna 2 tab 11/12/18 14:09 11/17/18 20:57 Senokot Tab* PO 2 tab BEDTIME PRN Administration CONSTIPATION Sertraline HCl 25 mg 11/14/18 09:00 11/20/18 08:35 Zoloft* PO 25 mg DAILY ELROY Administration Sitagliptin Phosphate 100 mg 11/13/18 09:00 11/20/18 08:33 Januvia (Nf) PO 100 mg DAILY ELROY Administration Vital Signs: Vital Signs Temp Pulse Resp BP Pulse Ox 97.3 F 66 18 141/53 100 11/21/18 05:51 11/21/18 05:51 11/21/18 05:51 11/21/18 05:51 11/21/18 05:51 Lab Results: Laboratory Results - last 24 hr 11/20/18 11/20/18 11/20/18 11:49 17:07 20:44 POC Glucose (mg/dL) 152 H 178 H 117 H 11/21/18 07:39 POC Glucose (mg/dL) 145 H Exam: GEN: no acute distress. alert and appropriate with dysarthria and hypophonia but voice a bit stronger today. LUNGS: Clear to auscultation bilaterally. HEART: regular rate and rhythm ABDOMEN: Soft, + bowel sound, non-tender, non-distended EXTREMITIES: Mildly increased tone in right UE and LE. No edema. NEUROLOGIC: 5/5 motor in LUE and LLE. 0/5 throughout RUE and RLE except trace hip adduction. Sensation intact x4. Right fascial droop. Assessment/Plan: 1. Left CVA with dense right hemiplegia: ASA. 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 2. DM: glipizide/Januvia/SSI. Off metformin for now due to increased creatinine. Recheck Cr on Friday. FS ok. 3. HTN: Lisinopril 4. Hyperlipidemia: Lipitor 80mg qday 5. Diarrhea: Improving 6. Dysphagia: Mechanical soft diet/thin liquids 7. DVT Prophylaxis: Lovenox 8. Renal insufficiency: Increased Cr with lower BUN/Cr ratio. P3 friday. off metformin for now. 9. Advance Directives: Full code. is surrogate decision maker 11/21/18 10:32
[2018-11-21] MEDS: Baclofen TAB* 10 MG PO SCH ×2 (10:35→19:49)
[2018-11-21] MEDS: Metoclopramide TAB* 10 MG PO SCH ×3 (10:35→18:35)
[2018-11-21] MEDS: Aspirin EC TAB* 325 MG PO SCH (10:35)
[2018-11-21] MEDS: glipiZIDE TAB.XL* 2.5 MG PO SCH (10:36)
[2018-11-21] MEDS: Famotidine TAB* 20 MG PO SCH ×2 (10:36→20:35)
[2018-11-21] MEDS: Lactobacillus Acidophilus* 1 TAB PO SCH (10:37)
[2018-11-21] MEDS: Lisinopril TAB* 10 MG PO SCH (10:37)
[2018-11-21] MEDS: CMC:SitaGLIPtin (NF) 100 MG TAB PO SCH (10:38)
[2018-11-21] MEDS: Sertraline* 25 MG TAB PO SCH (10:38)
[2018-11-21] MEDS: Acetaminophen TAB* 325 MG PO PRN (15:46)
[2018-11-21] MEDS: Atorvastatin* 80 MG TAB PO SCH (18:35)
[2018-11-21] MEDS: LORazepam TAB(*) 0.5 MG PO PRN (19:48)
[2018-11-21] MEDS: Enoxaparin(*) 40 MG/0.4 ML SYR SUBCUT SCH (20:34)
--- NOTE | 2018-11-22 09:29 | PN ---
Progress Note Date of Service: 11/22/18 Note: KEERTHI LEHMAN was visited. Nursing notes read and reviewed. No chest pain, shortness of breath or abdominal pain. He had a cramp in his entire right leg for about 2yrs last night. Current Medications: Active Medications Generic Name Dose Route Start Last Admin Trade Name Freq PRN Reason Stop Dose Admin Acetaminophen 650 mg 11/12/18 18:05 11/21/18 15:46 Tylenol Tab* PO 650 mg Q6H PRN Administration FEVER/PAIN Al Hydrox/Mg Hydrox/Simethicone 30 ml 11/13/18 13:46 11/13/18 13:57 Maalox Plus* PO 30 ml Q4H PRN Administration DYSPEPSIA Aspirin 325 mg 11/13/18 09:00 11/21/18 10:35 Ecotrin Ec Tab* PO 325 mg DAILY ELROY Administration Atorvastatin Calcium 80 mg 11/12/18 17:00 11/21/18 18:35 Lipitor* PO 80 mg 1700 ELROY Administration Baclofen 5 mg 11/18/18 21:00 11/21/18 19:49 Lioresal Tab* PO 5 mg BID ELROY Administration Bisacodyl 10 mg 11/12/18 14:09 11/17/18 21:08 Dulcolax Supp* [place] 10 mg DAILY PRN Administration CONSTIPATION Dextrose 12.5 gm 11/12/18 14:42 D50w Syringe 50 Ml* IV PUSH .FOR FS < 60 - SS PRN FS < 60 Docusate Sodium 100 mg 11/12/18 19:32 11/17/18 20:57 Colace Cap* PO 100 mg BID PRN Administration CONSTIPATION Enoxaparin Sodium 40 mg 11/12/18 20:30 11/21/18 20:34 Lovenox(*) SUBCUT 40 mg Q24H ELROY Administration Famotidine 20 mg 11/13/18 21:00 11/21/18 20:35 Pepcid Tab* PO 20 mg BID ELROY Administration Glipizide 2.5 mg 11/20/18 09:00 11/21/18 10:36 Glucotrol Xl* PO 2.5 mg DAILY ELROY Administration Insulin Human Lispro 0 - 5 units 11/20/18 07:30 11/21/18 21:03 Humalog* SUBCUT Not Given ACHS [facility] Protocol Lactobacillus Rhamnosus 1 tab 11/13/18 09:00 11/21/18 10:37 Lactobacillus Acidophilus* PO 1 tab DAILY ELROY Administration Lisinopril 40 mg 11/13/18 09:00 11/21/18 10:37 Prinivil Tab* PO 40 mg DAILY ELROY Administration Loperamide HCl 2 mg 11/12/18 19:31 11/15/18 00:02 Imodium Cap* PO 2 mg .SEE DIRECTIONS PRN Administration DIARRHEA Lorazepam 0.5 mg 11/15/18 16:31 11/21/18 19:48 Ativan Tab(*) PO 0.5 mg BEDTIME PRN Administration ANXIETY Magnesium Hydroxide 30 ml 11/12/18 14:09 Milk Of Magnesia Liq* PO Q6H PRN CONSTIPATION Metoclopramide HCl 5 mg 11/16/18 07:30 11/21/18 18:35 Reglan Tab* PO 5 mg AC ELROY Administration Senna 2 tab 11/12/18 14:09 11/17/18 20:57 Senokot Tab* PO 2 tab BEDTIME PRN Administration CONSTIPATION Sertraline HCl 25 mg 11/14/18 09:00 11/21/18 10:38 Zoloft* PO 25 mg DAILY ELROY Administration Sitagliptin Phosphate 100 mg 11/13/18 09:00 11/21/18 10:38 Januvia (Nf) PO 100 mg DAILY ELROY Administration Vital Signs: Vital Signs Temp Pulse Resp BP Pulse Ox 97.8 F 62 18 142/67 97 11/22/18 06:02 11/22/18 06:02 11/22/18 06:02 11/22/18 06:02 11/22/18 06:02 Lab Results: Laboratory Results - last 24 hr 11/21/18 11/21/18 11/21/18 11:55 17:51 21:01 POC Glucose (mg/dL) 109 H 125 H 138 H Exam: GEN: no acute distress. alert and appropriate with dysarthria and hypophonia but voice getting stronger. LUNGS: Clear to auscultation bilaterally. HEART: regular rate and rhythm with occasional skipped beat ABDOMEN: Soft, + bowel sound, non-tender, non-distended EXTREMITIES: Mildly increased tone in right UE and LE. No edema. NEUROLOGIC: 5/5 motor in LUE and LLE. 0/5 throughout RUE and RLE except trace hip adduction. Sensation intact x4. Right fascial droop. Assessment/Plan: 1. Left CVA with dense right hemiplegia: ASA. 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 2. DM: glipizide/Januvia/SSI. Off metformin for now due to increased creatinine. Recheck Cr on Friday. FS ok. 3. HTN: Lisinopril 4. Hyperlipidemia: Lipitor 80mg qday 5. Diarrhea: Improving 6. Dysphagia: Mechanical soft diet/thin liquids 7. DVT Prophylaxis: Lovenox 8. Renal insufficiency: Increased Cr with lower BUN/Cr ratio. P3 friday. off metformin for now. 9. Advance Directives: Full code. is surrogate decision maker 10. Leg cramp: on scheduled baclofen. I will add prn methocarbamol. 11. Nutrition: his brought in some supplements. 11/22/18 09:27
[2018-11-22] MEDS: Metoclopramide TAB* 10 MG PO SCH ×3 (11:16→16:19)
[2018-11-22] MEDS: Aspirin EC TAB* 325 MG PO SCH (11:16)
[2018-11-22] MEDS: Baclofen TAB* 10 MG PO SCH ×2 (11:17→20:59)
[2018-11-22] MEDS: Insulin LISPRO* 1 UNITS UNIT SUBCUT SCH ×4 (11:17→21:04)
[2018-11-22] MEDS: Lactobacillus Acidophilus* 1 TAB PO SCH (11:18)
[2018-11-22] MEDS: Lisinopril TAB* 10 MG PO SCH (11:18)
[2018-11-22] MEDS: Famotidine TAB* 20 MG PO SCH ×2 (11:19→20:58)
[2018-11-22] MEDS: Sertraline* 25 MG TAB PO SCH (11:19)
[2018-11-22] MEDS: CMC:SitaGLIPtin (NF) 100 MG TAB PO SCH (11:19)
[2018-11-22] MEDS: glipiZIDE TAB.XL* 2.5 MG PO SCH (11:40)
[2018-11-22] MEDS: [UNRECOGNIZED DRUG - OTHER] PO SCH (13:27)
[2018-11-22] MEDS: [UNRECOGNIZED DRUG - REMARK] PO SCH (13:28)
[2018-11-22] MEDS: GALLBLADDER FORMULA PO SCH (13:28)
[2018-11-22] MEDS: Acetaminophen TAB* 325 MG PO PRN (14:29)
[2018-11-22] MEDS: Atorvastatin* 80 MG TAB PO SCH (16:19)
[2018-11-22] MEDS: Methocarbamol TAB* 500 MG PO PRN (16:20)
[2018-11-22] MEDS: Enoxaparin(*) 40 MG/0.4 ML SYR SUBCUT SCH (20:58)
[2018-11-22] MEDS: LORazepam TAB(*) 0.5 MG PO PRN (21:00)
[2018-11-23 05:28] LABS: CO2 Carbon Dioxide 17 mmol/L (22-32); Calcium 9.7 mg/dL (8.6-10.3); Chloride 107 mmol/L (101-111); Sodium 133 mmol/L (135-145)
[2018-11-23 05:33] LABS: BUN/Creatinine Ratio 32.8 (8-20); Blood Urea Nitrogen 42 mg/dL (6-24); EGFR African American 66.7 (>60); EGFR Non-African American 55.1 (>60); Glucose 163 mg/dL (70-100)
[2018-11-23 06:11] LABS: Anion Gap 9 mmol/L (2-11)
[2018-11-23] MEDS: Insulin LISPRO* 1 UNITS UNIT SUBCUT SCH ×4 (09:01→21:26)
[2018-11-23] MEDS: Lisinopril TAB* 10 MG PO SCH (09:03)
[2018-11-23] MEDS: Aspirin EC TAB* 325 MG PO SCH (09:06)
[2018-11-23] MEDS: Famotidine TAB* 20 MG PO SCH ×2 (09:06→20:51)
[2018-11-23] MEDS: CMC:SitaGLIPtin (NF) 100 MG TAB PO SCH (09:07)
[2018-11-23] MEDS: [UNRECOGNIZED DRUG - OTHER] PO SCH (09:07)
[2018-11-23] MEDS: Baclofen TAB* 10 MG PO SCH ×3 (09:07→20:52)
[2018-11-23] MEDS: [UNRECOGNIZED DRUG - REMARK] PO SCH (09:07)
[2018-11-23] MEDS: Metoclopramide TAB* 10 MG PO SCH ×3 (09:08→17:02)
[2018-11-23] MEDS: Sertraline* 25 MG TAB PO SCH (09:09)
[2018-11-23] MEDS: Lactobacillus Acidophilus* 1 TAB PO SCH (09:09)
[2018-11-23] MEDS: glipiZIDE TAB.XL* 2.5 MG PO SCH (09:09)
[2018-11-23] MEDS: GALLBLADDER FORMULA PO SCH (09:09)
[2018-11-23] MEDS: Atorvastatin* 80 MG TAB PO SCH (17:02)
--- NOTE | 2018-11-23 17:49 | PN ---
Progress Note Date of Service: 11/23/18 Note: KEERTHI LEHMAN was visited. Therapy notes read and reviewed. He remains plegic on right. Having spasticity in right leg. Will increase Baclofen to TID. His daughter was asking about massage therapy Current Medications: Active Medications Generic Name Dose Route Start Last Admin Trade Name Freq PRN Reason Stop Dose Admin Acetaminophen 650 mg 11/12/18 18:05 11/22/18 14:29 Tylenol Tab* PO 650 mg Q6H PRN Administration FEVER/PAIN Al Hydrox/Mg Hydrox/Simethicone 30 ml 11/13/18 13:46 11/13/18 13:57 Maalox Plus* PO 30 ml Q4H PRN Administration DYSPEPSIA Aspirin 325 mg 11/13/18 09:00 11/23/18 09:06 Ecotrin Ec Tab* PO 325 mg DAILY ELROY Administration Atorvastatin Calcium 80 mg 11/12/18 17:00 11/23/18 17:02 Lipitor* PO 80 mg 1700 ELROY Administration Baclofen 5 mg 11/23/18 14:00 11/23/18 15:14 Lioresal Tab* PO 5 mg TID ELROY Administration Bisacodyl 10 mg 11/12/18 14:09 11/17/18 21:08 Dulcolax Supp* UT 10 mg DAILY PRN Administration CONSTIPATION Dextrose 12.5 gm 11/12/18 14:42 D50w Syringe 50 Ml* IV PUSH .FOR FS < 60 - SS PRN FS < 60 Docusate Sodium 100 mg 11/12/18 19:32 11/17/18 20:57 Colace Cap* PO 100 mg BID PRN Administration CONSTIPATION Enoxaparin Sodium 40 mg 11/12/18 20:30 11/22/18 20:58 Lovenox(*) SUBCUT 40 mg Q24H ELROY Administration Famotidine 20 mg 11/13/18 21:00 11/23/18 09:06 Pepcid Tab* PO 20 mg BID ELROY Administration Glipizide 2.5 mg 11/20/18 09:00 11/23/18 09:09 Glucotrol Xl* PO 2.5 mg DAILY ELROY Administration Insulin Human Lispro 0 - 5 units 11/20/18 07:30 11/23/18 16:58 Humalog* SUBCUT Not Given ACHS [facility] Protocol Lactobacillus Rhamnosus 1 tab 11/13/18 09:00 11/23/18 09:09 Lactobacillus Acidophilus* PO 1 tab DAILY ELROY Administration Lisinopril 40 mg 11/13/18 09:00 11/23/18 09:03 Prinivil Tab* PO 40 mg DAILY ELROY Administration Loperamide HCl 2 mg 11/12/18 19:31 11/15/18 00:02 Imodium Cap* PO 2 mg .SEE DIRECTIONS PRN Administration DIARRHEA Lorazepam 0.5 mg 11/15/18 16:31 11/22/18 21:00 Ativan Tab(*) PO 0.5 mg BEDTIME PRN Administration ANXIETY Magnesium Hydroxide 30 ml 11/12/18 14:09 Milk Of Magnesia Liq* PO Q6H PRN CONSTIPATION Methocarbamol 500 mg 11/22/18 09:29 11/22/18 16:20 Robaxin Tab* PO 500 mg QID PRN Administration spasm Metoclopramide HCl 5 mg 11/16/18 07:30 11/23/18 17:02 Reglan Tab* PO 5 mg AC ELROY Administration Pto: (Daily 1 cap 11/22/18 09:30 11/23/18 09:07 Essential Enzymes 1 PO Not Given Cap) DAILY ELROY Pto: (Dr. Vee's D3 1 cap 11/22/18 09:45 11/23/18 09:07 & K2 Vitamin 1 Cap) PO Not Given DAILY ELROY Pto: (Gallbladder 1 cap 11/22/18 09:45 11/23/18 09:09 Formula 1 Cap) PO Not Given DAILY ELROY Senna 2 tab 11/12/18 14:09 11/17/18 20:57 Senokot Tab* PO 2 tab BEDTIME PRN Administration CONSTIPATION Sertraline HCl 25 mg 11/14/18 09:00 11/23/18 09:09 Zoloft* PO 25 mg DAILY ELROY Administration Sitagliptin Phosphate 100 mg 11/13/18 09:00 11/23/18 09:07 Januvia (Nf) PO 100 mg DAILY ELROY Administration Vital Signs: Vital Signs Temp Pulse Resp BP Pulse Ox 98.1 F 64 16 128/64 97 11/23/18 15:52 11/23/18 15:52 11/23/18 15:52 11/23/18 15:52 11/23/18 15:52 Lab Results: Laboratory Results - last 24 hr 0411/23/18 11/23/18 20:46 04:58 08:11 Sodium 133 L Potassium TNP Chloride 107 Carbon Dioxide 17 L Anion Gap 9 BUN 42 H Creatinine 1.28 H Est GFR ( Amer) 66.7 Est GFR (Non-Af Amer) 55.1 BUN/Creatinine Ratio 32.8 H Glucose 163 H POC Glucose (mg/dL) 145 H 157 H Calcium 9.7 11/23/18 11/23/18 11:35 16:47 Sodium Potassium Chloride Carbon Dioxide Anion Gap BUN Creatinine Est GFR ( Amer) Est GFR (Non-Af Amer) BUN/Creatinine Ratio Glucose POC Glucose (mg/dL) 169 H 150 H Calcium Exam: GENERAL: no acute distress. alert and appropriate with hypophonia. LUNGS: Clear to auscultation bilaterally. HEART: regular rate and rhythm with occasional skipped beat ABDOMEN: Soft, + bowel sound, non-tender, non-distended EXTREMITIES: Mildly increased tone in right UE and LE. No edema. NEUROLOGIC: Dysarthric .5/5 motor in LUE and LLE. 0/5 throughout RUE and RLE except trace hip adduction. Sensation intact x4. Right facial droop. Assessment/Plan: 1. Left CVA with dense right hemiplegia: ASA. PT/OT/MATERIAL HANDLER 2ND SHIFT. 2. DM: glipizide/Januvia/SSI. Off metformin for now due to increased creatinine. Cr 1.28. Will increase SSI 3. HTN: Lisinopril 4. Hyperlipidemia: Lipitor 80mg qday 5. Diarrhea: Improving 6. Dysphagia: Mechanical soft diet/thin liquids 7. DVT Prophylaxis: Lovenox 8. Renal insufficiency: Increased Cr with lower BUN/Cr ratio. 9. Advance Directives: Full code. is surrogate decision maker 10. Leg cramp: on scheduled baclofen. 11. Nutrition: his brought in some supplements. 11/23/18 17:50 11/23/18 17:51
[2018-11-23] MEDS: Enoxaparin(*) 40 MG/0.4 ML SYR SUBCUT SCH (20:48)
[2018-11-23] MEDS: Senna TAB PO PRN (20:53)
[2018-11-24] MEDS: Acetaminophen TAB* 325 MG PO PRN (02:25)
[2018-11-24] MEDS: Insulin LISPRO* 1 UNITS UNIT SUBCUT SCH ×4 (09:13→21:17)
[2018-11-24] MEDS: Aspirin EC TAB* 325 MG PO SCH (09:14)
[2018-11-24] MEDS: CMC:SitaGLIPtin (NF) 100 MG TAB PO SCH (09:14)
[2018-11-24] MEDS: Baclofen TAB* 10 MG PO SCH ×3 (09:15→21:19)
[2018-11-24] MEDS: glipiZIDE TAB.XL* 2.5 MG PO SCH (09:15)
[2018-11-24] MEDS: Famotidine TAB* 20 MG PO SCH ×2 (09:15→21:19)
[2018-11-24] MEDS: Lactobacillus Acidophilus* 1 TAB PO SCH (09:15)
[2018-11-24] MEDS: Sertraline* 25 MG TAB PO SCH (09:15)
[2018-11-24] MEDS: Lisinopril TAB* 10 MG PO SCH (09:16)
[2018-11-24] MEDS: Metoclopramide TAB* 10 MG PO SCH ×3 (09:16→17:27)
[2018-11-24] MEDS: [UNRECOGNIZED DRUG - OTHER] PO SCH ×2 (09:19→10:44)
[2018-11-24] MEDS: [UNRECOGNIZED DRUG - REMARK] PO SCH (10:45)
[2018-11-24] MEDS: GALLBLADDER FORMULA PO SCH (10:45)
--- NOTE | 2018-11-24 12:35 | PMRUTEAM ---
PMRU: Team Meeting Current Status: Nursing: Current Status Skin Deviations [gluteal cleft Pressure Ulcer ] Skin Deviations [Bilateral Other Heel] Skin Deviations [Upper Back] Rash Skin Deviations [Right Arm] Bruise Skin Deviation Description [ open slit. barrier applied gluteal cleft] Skin Deviation Description [ Spanko boot in place on right when in bed Bilateral Heel] Skin Deviation Description [ lotion applied Upper Back] Skin Deviation Description [ unchanged since adm Right Arm] Bladder Current Status used urinal Bowel Current Status bm 11/19/18. colace given this am Nutrition Current Status appetite fair. Medication Current Status takes meds whole with water. tylenol given for r shoulder pain during the night. Physical Therapy: Current Status Bed Mobility Assistance Total Assist,2 or More Person Assist Transfer Mobility Assistance 2 or More Person Assist Transfer/Bed Mobility Dorcas Lift Recommended Devices Ambulation Assistance Unable Stairs Assistance Not Tested Wheelchair Distance (ft) 100 Objective Comments Fitted with multi-podus boot; pt may benefit from slightly smaller boot if available Occupational Therapy: Current Status Upper Body Dressing Mod Assist Lower Body Dressing Total Assist,2 Person Assist Bathing Max Asst,2 Person Assist Toileting Total Assist,2 Person Assist Toilet Transfer Total Assist,2 Person Assist Shower Transfer Total Assist,2 Person Assist Eating Supervision Rec Therapy: Current Status Summary of Assessment and Pt. has been open to conversation - oriented, Clinical Impression polite and friendly. Pt. has been enjoying visits from his 2 daughters and grandchildren. Treatment Goals Pt. will continue to engage in leisure while on the unit. Treatment Plan Continue to offer recreation services. Social Work: Current Status Discharge Plan return home with home care svs and family support Potential for Family Training pt's is involved and supportive Anticipated Discharge Home Destination Discharge With home care svs and family support Nutrition: Current Status Monitoring Pt feeds self independently. Intake fair (25-75% ) and needs to continue to be encouraged adonis since skin risk (pressure ulcer gluteal fold). Will trial glucerna shake as a supplement. Initially issues w/diarrhea but currently constipation ( appropriate meds ordered) and fluids will be encouraged. Diet advanced to thin liquids ( continuing mechanical soft) which will be more palatable to pt. Glycemic control w/in parameters . Speech: Current Status Assessment Patient is progressing as expected. Patient demonstrated increased vocal loudness, pitch range , and improved vocal tone by using compensatory strategies and performing vocal facilitation exercises. SENIOR PRODUCT ENGINEER provided skilled instruction in compensatory swallowing strategies and exercises, including tongue-base retraction exercises, and patient demonstrated ability to perform exercises well. Speech Current Status Goal 1 Mild impairment Speech Goal 2 Current Status Moderate impairment Speech Goal 3 Current Status Moderate-Severe impairment Goals: Physical Therapy: Initial Goals Bed Mobility Assistance Independent Transfer Mobility Assistance Independent Transfer/Bed Mobility Krishan Walker Recommended Devices Ambulation Independent Ambulation Recommended Devices Krishan Walker Ambulation Distance 5 Wheelchair Propulsion Ability Independent Physical Therapy: Updated Goals Transfer/Bed Mobility Dorcas Lift Recommended Devices Occupational Therapy: Initial Goals Goals to be Completed in (Days 42+ ) Upper Body Bathing Routine Independent Lower Body Bathing Routine Modified Independent with Upper Body Dressing Routine Independent Lower Body Dressing Routine Modified Independent with Toilet Hygeine and Clothing Modified Independent with Management Routine Toilet Transfer Routine Modified Independent with Step-In Shower Transfer Supervision/Set Up Routine Functional Transfers for ADL Modified Independent with Grooming Routine Independent Feeding Routine Independent Nursing: Goals Bladder Goal independent Bowel Goal independent Nutrition Goal 100% of all meals consumed Medication Goal independent Nutrition: Goals Intervention Goals 1. adequate po intake to support hydratio, lean body mass and skin integrity without add'l wt gain 2. tolerates least-restrictive diet texture without difficulty chewing, swallowing 3. glycemic control within inpatient parameters; no s/sx hypo-hyperglycemia 4. achieves regulation of bowel pattern; no c/o constipation (or diarrhea) Speech: Goals Speech Goal 1 Swallowing Speech Evaluation Status Goal Mild-moderate impairment 1 Speech Current Status Goal 1 Mild impairment Goal 1 Comments Long-Term Goal: Patient will I'ly follow precautions to tolerate least restrictive diet consistencies w/ no complications from aspiration. Status: Goals established Short Term Goals: 1) STG: Patient will demonstrate and follow swallowing exercises and compensatory strategies, to tolerate mechanical/ground diet texture and nectar thick liquids, w/ adequate PO intake and no clinical s/s aspiration, Independently 2) STC: Patient will I'ly follow precautions and compensatory strategies, to tolerate thin water between meals and after good oral hygiene, without regard to expected clinical s/s of aspiration, and with no complications from aspiration, Independently 3) STG: Patient will demonstrate and follow swallowing exercises and compensatory strategies, to tolerate regular diet consistency w/ no clinical s/s aspiration, Independently 4) STC: Patient will I'ly follow precautions and compensatory strategies, to tolerate thin liquids with no clinical s/s or complications from aspiration, Independently Status: Progressing as expected. Patient tolerated skilled trials of thin liquids with no clinical s/s aspiration. Patient performed tongue-base retraction exercises: Maggie maneuver and dry swallow with chin raised. Patient performed supraglottic swallow: inhale before and hold breath during hard-fast swallows. Speech Goal 2 Motor Speech Speech Goal 2 Evaluation Moderate impairment Status Speech Goal 2 Current Status Moderate impairment Speech Goal 2 Comments Motor-speech Long-Term Goal: Pt will I'ly speak with 100% intelligibility, Independently Status: Goals established Short-Term Goal 1: Pt will use compensatory strategies to increase speech to intelligibility to 100% in spontaneous conversational speech, given minimal cueing. Short-Term Goal 2: Pt will use compensatory articulation strategies to increase speech to intelligibility to 90% in structured speech activities, given Moderate cueing. Status: Progressing as expected. SENIOR PRODUCT ENGINEER provided skilled instruction in isolation exercises to improve range, symmetry and coordination of movement of labiafacial musculature. Given modersate cueing, patient corrected unintelligible speech utterance and produced aticulate speech. Speech Goal 3 Voice Speech Goal 3 Evaluation Moderate-Severe impairment Status Speech Goal 3 Current Status Moderate-Severe impairment Speech Goal 3 Comments Voice Goals: Long-Term Goal: Pt will use compensatory strategies to increase vocal loudness, pitch range and tone quality to mild-moderate impairment, and speech to intelligibility to 95-100%, in spontaneous conversational speech, Independently, as observed by therapists, nursing and medical staff. Status: Goals established. Short-Term Goal: Pt will complete loud voice exercises and use compensatory strategies to increase vocal loudness, pitch range and tone quality to moderate impairment, and speech to intelligibility to 90%, in structured conversational speech, given moderate cueing, as observed by therapists, nursing and medical staff. Status: Progressing as expected. Patient demonstrated the ability to increase volume and control of thoraco-diaphragmatic breathing, and vocal tone by use of facilitation techniques. Patient demonstrated increased loudness, and increased pitch range of 2/3 octave during pitch glide exercises. Social Work: Goals Discharge Plan return home with home care svs and family support Potential for Family Training pt's is involved and supportive Anticipated Discharge Home Destination Discharge With home care svs and family support Care Plan: Care Plan ADL's - Improve/Maintain Start: 11/13/18 07:10 Freq: DAILY Status: Active Target: Protocol: Activity Type Activity Date Activity User E-Sign Co-Sign Detail Recorded Client Recorded Date Recorded By Document 11/19/18 14:36 [id number] [id number] 11/19/18 14:36 [id number] 11/19/18 14:36 PMRU Outcome: ADL's/ADL Transfers Orders/Interventions Occupational Therapy Evaluation & Treatment Communication Tool in Patient Room Patient to receive OT 5x/wk for 60-120 Therex min/day Self Care Management Group Therapy UE/LE ADL's with Assist Yes: mod I ADL Transfers with Assist Yes: mod I Toileting: Transfers,Clothing Management Yes: mod I ,Hygeine w/Assist Outcome/Goals Met Pt begun utilizing one handed strategies today for fasteners. He did slightly better with UB dressing. Pt does appear much more depressed and seems more nonchalant than previous sessions. [ End ] Cardiovascular-Improve/Maintain Start: 11/13/18 00:55 Freq: DAILY@0400,1600 Status: Active Target: Protocol: Activity Type Activity Date Activity User E-Sign Co-Sign Detail Recorded Client Recorded Date Recorded By Document 11/24/18 01:14 [id number] 11/24/18 01:15 [id number] 11/24/18 01:14 Outcome: Cardiovascular Current Cardiovascular Outcome/Goal Maintain/ achieve baseline HR, BP , Perfusion Free of abnormal cardiac symptoms Progression Towards Outcome/Goal Progressing Communication-Improve/Maintain Start: 11/13/18 12:14 Freq: DAILY Status: Active Target: Protocol: Activity Type Activity Date Activity User E-Sign Co-Sign Detail Recorded Client Recorded Date Recorded By Document 11/24/18 01:14 [id number] [email or web address] 11/24/18 01:15 [id number] 11/24/18 01:14 PMRU Outcome: Communication/Cognitive Status Outcome/Goals Makes Needs Known Effectively Progression Toward Outcomes/Goals Progressing Coping/Psych-Improve/Maintain Start: 11/16/18 15:42 Freq: QSHIFT Status: Active Target: Protocol: Activity Type Activity Date Activity User E-Sign Co-Sign Detail Recorded Client Recorded Date Recorded By Document 11/24/18 01:14 [id number] [email or web address] 11/24/18 01:15 [id number] 11/24/18 01:14 PMRU Outcome: Coping/Psychosocial Coping Outcome/Goals Verbalization of Acceptance of Rehab Admit Willingness to Participate in Treatment Plan and Basic Needs Utilization of Available Support Systems Absence of Destructive Behavior to Self/Others Psychosocial Outcome/Goals Maintain/ Improve Emotional Health Demonstrates Knowledge of Healthy Coping Mechanisms Available Cooperate/ Participate in Plan Progression Toward Outcome/Goals - Progressing Coping Progression Toward Outcome/Goals - Progressing Psychosocial DVT Prophylaxis- Improve/Maintain Start: 11/16/18 15:42 Freq: QSHIFT Status: Active Target: Protocol: Activity Type Activity Date Activity User E-Sign Co-Sign Detail Recorded Client Recorded Date Recorded By Document 11/24/18 01:14 [id number] [email or web address] 11/24/18 01:15 [id number] 11/24/18 01:14 PMRU Outcome: DVT Prophylaxis Outcome/Goals Remains Free of DVT Complies with DVT Prophylaxis /Treatment Demonstrates Knowledge of DVT Prevention/ Treatment TEDS Stockings on Every AM, Off at HS Progression Toward Outcome/Goals Progressing Discharge Planning Start: 11/13/18 00:55 Freq: DAILY@0400,1600 Status: Complete Target: Protocol: Activity Type Activity Date Activity User E-Sign Co-Sign Detail Recorded Client Recorded Date Recorded By Document 11/16/18 02:40 [id number] 11/16/18 02:40 [id number] 11/16/18 02:40 Outcome: Discharge Planning Outcome/Goals Demonstrates Understanding of Discharge Plan Necessary Services Arranged for Post Discharge Care Progression Toward Outcome/Goals Progressing Discharge Planning - Improve/Maintain Start: 11/16/18 15:42 Freq: DAILY Status: Active Target: Protocol: Activity Type Activity Date Activity User E-Sign Co-Sign Detail Recorded Client Recorded Date Recorded By Document 11/24/18 01:14 [id number] [email or web address] 11/24/18 01:15 [id number] 11/24/18 01:14 PMRU Outcome: Discharge Planning Update Patient Family No Outcome/Goals Demonstrates Understanding of Discharge Plan Education-Improve/Maintain Start: 11/16/18 15:42 Freq: QSHIFT Status: Active Target: Protocol: Activity Type Activity Date Activity User E-Sign Co-Sign Detail Recorded Client Recorded Date Recorded By Document 11/24/18 01:14 [id number] [email or web address] 11/24/18 01:15 [id number] 11/24/18 01:14 PMRU Outcome: Education Outcome/Goals Encourage Questions Progression Toward Outcome/Goals Progressing Genitourinary-Improve/Maintain Start: 11/13/18 00:55 Freq: DAILY@0400,1600 Status: Complete Target: Protocol: Activity Type Activity Date Activity User E-Sign Co-Sign Detail Recorded Client Recorded Date Recorded By Document 11/16/18 02:40 [id number] [email or web address] 11/16/18 02:40 [id number] 11/16/18 02:40 Outcome: Genitourinary Outcome/Goals Maintain/ Achieve Urinary Continence Maintain/ Achieve Adequate Urinary Output Progression Toward Outcome/Goals Progressing Outcome/Goals Met Comment pt used urinal Medication Administration Start: 11/16/18 15:42 Freq: QSHIFT Status: Active Target: Protocol: Activity Type Activity Date Activity User E-Sign Co-Sign Detail Recorded Client Recorded Date Recorded By Document 11/24/18 01:14 [id number] [email or web address] 11/24/18 01:15 [id number] 11/24/18 01:14 PMRU Outcome: Medication Administration Assess Patient Knowledge/Teach Med Yes Education for all Meds Outcome/Goals Patient Independent with Medication Administration at Home Demonstrates Understanding Progression Towards Outcome/Goals Progressing Is Patient Going Home on Lovenox? No Metabolic Status- Improve/Maintain Start: 11/16/18 15:42 Freq: QSHIFT Status: Active Target: Protocol: Activity Type Activity Date Activity User E-Sign Co-Sign Detail Recorded Client Recorded Date Recorded By Document 11/24/18 01:14 [id number] [email or web address] 11/24/18 01:15 [id number] 11/24/18 01:14 PMRU Outcome: Metabolic Status Have Fingersticks Been Ordered Yes Fingerstick Order Frequency AC & HS Outcome/Goals Maintain/ Improve Metabolic Status Demonstrate Knowledge of Prevention/ Treatment of Metabolic Imbalances Progression Toward Outcome/Goals Progressing Mobility- Improve/Maintain Start: 11/13/18 20:36 Freq: DAILY Status: Active Target: Protocol: Activity Type Activity Date Activity User E-Sign Co-Sign Detail Recorded Client Recorded Date Recorded By Document 11/13/18 20:36 [id number] [email or web address] 11/13/18 20:37 [id number] 11/13/18 20:36 PMRU Outcome: Mobility Physical Therapy Evaluation and Yes Treatment Activity OOB with Assistance Yes WBAT Yes Device Yes Assistance Yes Patient to be seen 5x/wk for 60-120 min/ Therex day for: Mobility Training Gait Training W/C Mobility Balance Other Outcome/Goals Maintain/ Achieve Baseline Mobility Status Improve Mobility Status Demonstrates Proper Use of Assistive Devices Free from Complications of Immobility Bed Mobility Yes: independent Transfers Yes: independent with krishan walker Gait x ft Yes: independent 5 feet with krishan walker W/C Mobility x ft Yes: independnet Neurological- Improve/Maintain Start: 11/16/18 15:42 Freq: QSHIFT Status: Active Target: Protocol: Activity Type Activity Date Activity User E-Sign Co-Sign Detail Recorded Client Recorded Date Recorded By Document 11/24/18 01:14 [id number] [email or web address] 11/24/18 01:15 [id number] 11/24/18 01:14 PMRU Outcome: Neurological Weakness/Aphasia Weakness Right Side Weakness/Aphasia Comment dysarthria, dysphagia Outcome/Goals Maintain/ Achieve Baseline Neurological Status Improve Neurological Status Prevent Avoidable Neurological Decline Demonstrate Knowledge of Prevention/Tx of Neuro Disorders/ Complication Maintain/ Improve Strength/ROM Progression Toward Outcome/Goals Progressing Nutrition-Improve/Maintain Start: 11/13/18 21:19 Freq: DAILY@0400,1600 Status: Complete Target: Protocol: Activity Type Activity Date Activity User E-Sign Co-Sign Detail Recorded Client Recorded Date Recorded By Document 11/16/18 02:40 [id number] [email or web address] 11/16/18 02:40 [id number] 11/16/18 02:40 Outcome: Nutrition Outcome/Goals Demonstrates Adequate Hydration Progression Toward Outcome/Goals Progressing Outcome/Goals Met Comment pt not eating much Nutrition/Swallowing- Improve/Maintain Start: 11/16/18 15:42 Freq: QSHIFT Status: Active Target: Protocol: Activity Type Activity Date Activity User E-Sign Co-Sign Detail Recorded Client Recorded Date Recorded By Document 11/24/18 01:14 [id number] [email or web address] 11/24/18 01:15 [id number] 11/24/18 01:14 PMRU Outcome: Nutrition/Swallowing Outcome/Goals Demonstrates Adequate Hydration/ Prevents Dehydration Maintain/ Improve Nutritional Status Progression Toward Outcome/Goals Progressing Safety- Improve/Maintain Start: 11/16/18 15:42 Freq: QSHIFT Status: Active Target: Protocol: Activity Type Activity Date Activity User E-Sign Co-Sign Detail Recorded Client Recorded Date Recorded By Document 11/24/18 01:14 [id number] [email or web address] 11/24/18 01:15 [id number] 11/24/18 01:14 PMRU Outcome: Safety Outcome/Goals Remain Free of Injury or Harm Cooperates with Safety Measures for Least Restrictive Environment Prevent Falls/ Injury Progression Toward Outcome/Goals Progressing Outcome/Goals Met Comment FIDELIA armester Skin- Improve/Maintain Start: 11/16/18 15:42 Freq: QSHIFT Status: Active Target: Protocol: Activity Type Activity Date Activity User E-Sign Co-Sign Detail Recorded Client Recorded Date Recorded By Document 11/24/18 01:14 [id number] [email or web address] 11/24/18 01:15 [id number] 11/24/18 01:14 PMRU Outcome: Skin Skin Risk Level High Skin Orders Spenco Boots Multipodus Boot Turn/Position q2hr While in Bed Outcome/Goals Maintain/ Improve Skin Intergrity Free from Decubitus Progression Toward Outcome/Goals Progressing Medicine Note: Length of Stay: 4 1/2 weeks Anticipated Discharge Destination: Home Tentative Discharge Date: December 252018 Discharged to: Home
[2018-11-24] MEDS: Atorvastatin* 80 MG TAB PO SCH (17:29)
--- NOTE | 2018-11-24 18:13 | PN ---
Progress Note Date of Service: 11/24/18 Note: KEERTHI LEHMAN was visited. Therapy notes read and reviewed. He was discussed in interdisciplinary team rounds. He has had no return noted in arms or legs. Spasticity better with Baclofen TID Current Medications: Active Medications Generic Name Dose Route Start Last Admin Trade Name Freq PRN Reason Stop Dose Admin Acetaminophen 650 mg 11/12/18 18:05 11/24/18 02:25 Tylenol Tab* PO 650 mg Q6H PRN Administration FEVER/PAIN Al Hydrox/Mg Hydrox/Simethicone 30 ml 11/13/18 13:46 11/13/18 13:57 Maalox Plus* PO 30 ml Q4H PRN Administration DYSPEPSIA Aspirin 325 mg 11/13/18 09:00 11/24/18 09:14 Ecotrin Ec Tab* PO 325 mg DAILY ELROY Administration Atorvastatin Calcium 80 mg 11/12/18 17:00 11/24/18 17:29 Lipitor* PO 80 mg 1700 ELROY Administration Baclofen 5 mg 11/23/18 14:00 11/24/18 17:28 Lioresal Tab* PO 5 mg TID ELROY Administration Bisacodyl 10 mg 11/12/18 14:09 11/17/18 21:08 Dulcolax Supp* [place] 10 mg DAILY PRN Administration CONSTIPATION Dextrose 12.5 gm 11/12/18 14:42 D50w Syringe 50 Ml* IV PUSH .FOR FS < 60 - SS PRN FS < 60 Docusate Sodium 100 mg 11/12/18 19:32 11/17/18 20:57 Colace Cap* PO 100 mg BID PRN Administration CONSTIPATION Enoxaparin Sodium 40 mg 11/12/18 20:30 11/23/18 20:48 Lovenox(*) SUBCUT 40 mg Q24H ELROY Administration Famotidine 20 mg 11/13/18 21:00 11/24/18 09:15 Pepcid Tab* PO 20 mg BID ELROY Administration Glipizide 2.5 mg 11/20/18 09:00 11/24/18 09:15 Glucotrol Xl* PO 2.5 mg DAILY ELROY Administration Insulin Human Lispro 0 - 10 units 11/23/18 21:00 11/24/18 17:19 Humalog* SUBCUT 2 unit ACHS ELROY Administration Protocol Lactobacillus Rhamnosus 1 tab 11/13/18 09:00 11/24/18 09:15 Lactobacillus Acidophilus* PO 1 tab DAILY ELROY Administration Lisinopril 40 mg 11/13/18 09:00 11/24/18 09:16 Prinivil Tab* PO 40 mg DAILY ELROY Administration Loperamide HCl 2 mg 11/12/18 19:31 11/15/18 00:02 Imodium Cap* PO 2 mg .SEE DIRECTIONS PRN Administration DIARRHEA Lorazepam 0.5 mg 11/15/18 16:31 11/22/18 21:00 Ativan Tab(*) PO 0.5 mg BEDTIME PRN Administration ANXIETY Magnesium Hydroxide 30 ml 11/12/18 14:09 Milk Of Magnesia Liq* PO Q6H PRN CONSTIPATION Methocarbamol 500 mg 11/22/18 09:29 11/22/18 16:20 Robaxin Tab* PO 500 mg QID PRN Administration spasm Metoclopramide HCl 5 mg 11/16/18 07:30 11/24/18 17:27 Reglan Tab* PO 5 mg AC ELROY Administration Pto: (Daily 1 cap 11/22/18 09:30 11/24/18 10:44 Essential Enzymes 1 PO 1 cap Cap) DAILY ELROY Administration Pto: (Dr. Vee's D3 1 cap 11/22/18 09:45 11/24/18 10:45 & K2 Vitamin 1 Cap) PO 1 cap DAILY ELROY Administration Pto: (Gallbladder 1 cap 11/22/18 09:45 11/24/18 10:45 Formula 1 Cap) PO 1 cap DAILY ELROY Administration Senna 2 tab 11/12/18 14:09 11/23/18 20:53 Senokot Tab* PO 2 tab BEDTIME PRN Administration CONSTIPATION Sertraline HCl 25 mg 11/14/18 09:00 11/24/18 09:15 Zoloft* PO 25 mg DAILY ELROY Administration Sitagliptin Phosphate 100 mg 11/13/18 09:00 11/24/18 09:14 Januvia (Nf) PO 100 mg DAILY ELROY Administration Vital Signs: Vital Signs Temp Pulse Resp BP Pulse Ox 98.1 F 63 14 136/64 97 11/24/18 17:01 11/24/18 17:01 11/24/18 17:01 11/24/18 17:01 11/24/18 17:01 Lab Results: Laboratory Results - last 24 hr 11/23/18 11/24/18 11/24/18 20:52 07:47 08:04 POC Glucose (mg/dL) 179 H 105 H 170 H 11/24/18 12:03 POC Glucose (mg/dL) 216 H Exam: GENERAL: no acute distress. alert and appropriate with hypophonia. LUNGS: Clear to auscultation bilaterally. HEART: regular rate and rhythm with occasional skipped beat ABDOMEN: Soft, + bowel sound, non-tender, non-distended EXTREMITIES: Mildly increased tone in right UE and LE. No edema. NEUROLOGIC: Dysarthric .5/5 motor in LUE and LLE. 0/5 throughout RUE and RLE except trace hip adduction. Sensation intact x4. Right facial droop. Assessment/Plan: 1. Left CVA with dense right hemiplegia: ASA. 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 2. DM: glipizide/Januvia/SSI. Off metformin for now due to increased creatinine. Cr 1.28. Increased SSI 3. HTN: Lisinopril 4. Hyperlipidemia: Lipitor 80mg qday 5. Diarrhea: Improving 6. Dysphagia: Mechanical soft diet/thin liquids 7. DVT Prophylaxis: Lovenox 8. Renal insufficiency: Increased Cr with lower BUN/Cr ratio. 9. Advance Directives: Full code. is surrogate decision maker 10. Leg cramp: on scheduled baclofen. 11. Nutrition: his brought in some supplements. 11/24/18 18:13
[2018-11-24] MEDS: Enoxaparin(*) 40 MG/0.4 ML SYR SUBCUT SCH (21:15)
[2018-11-25] MEDS: Metoclopramide TAB* 10 MG PO SCH ×3 (07:34→17:08)
[2018-11-25] MEDS: glipiZIDE TAB.XL* 2.5 MG PO SCH (10:15)
[2018-11-25] MEDS: Insulin LISPRO* 1 UNITS UNIT SUBCUT SCH ×4 (10:18→21:37)
[2018-11-25] MEDS: [UNRECOGNIZED DRUG - OTHER] PO SCH (10:19)
[2018-11-25] MEDS: GALLBLADDER FORMULA PO SCH (10:20)
[2018-11-25] MEDS: Sertraline* 25 MG TAB PO SCH (10:21)
[2018-11-25] MEDS: Aspirin EC TAB* 325 MG PO SCH (10:21)
[2018-11-25] MEDS: Famotidine TAB* 20 MG PO SCH ×2 (10:21→21:34)
[2018-11-25] MEDS: [UNRECOGNIZED DRUG - REMARK] PO SCH (10:21)
[2018-11-25] MEDS: CMC:SitaGLIPtin (NF) 100 MG TAB PO SCH (10:22)
[2018-11-25] MEDS: Lactobacillus Acidophilus* 1 TAB PO SCH (10:22)
[2018-11-25] MEDS: Lisinopril TAB* 10 MG PO SCH (10:22)
[2018-11-25] MEDS: Baclofen TAB* 10 MG PO SCH ×3 (10:22→21:34)
[2018-11-25] MEDS: Atorvastatin* 80 MG TAB PO SCH (17:09)
--- NOTE | 2018-11-25 19:50 | PN ---
Progress Note Date of Service: 11/25/18 Note: KEERTHI LEHMAN was visited. Therapy notes read and reviewed. Voice is stronger. No motor return in extremities yet. He feels good today Current Medications: Active Medications Generic Name Dose Route Start Last Admin Trade Name Freq PRN Reason Stop Dose Admin Acetaminophen 650 mg 11/12/18 18:05 11/24/18 02:25 Tylenol Tab* PO 650 mg Q6H PRN Administration FEVER/PAIN Al Hydrox/Mg Hydrox/Simethicone 30 ml 11/13/18 13:46 11/13/18 13:57 Maalox Plus* PO 30 ml Q4H PRN Administration DYSPEPSIA Aspirin 325 mg 11/13/18 09:00 11/25/18 10:21 Ecotrin Ec Tab* PO 325 mg DAILY ELROY Administration Atorvastatin Calcium 80 mg 11/12/18 17:00 11/25/18 17:09 Lipitor* PO 80 mg 1700 ELROY Administration Baclofen 5 mg 11/23/18 14:00 11/25/18 13:47 Lioresal Tab* PO 5 mg TID ELROY Administration Bisacodyl 10 mg 11/12/18 14:09 11/17/18 21:08 Dulcolax Supp* [place] 10 mg DAILY PRN Administration CONSTIPATION Dextrose 12.5 gm 11/12/18 14:42 D50w Syringe 50 Ml* IV PUSH .FOR FS < 60 - SS PRN FS < 60 Docusate Sodium 100 mg 11/12/18 19:32 11/17/18 20:57 Colace Cap* PO 100 mg BID PRN Administration CONSTIPATION Enoxaparin Sodium 40 mg 11/12/18 20:30 11/24/18 21:15 Lovenox(*) SUBCUT 40 mg Q24H ELROY Administration Famotidine 20 mg 11/13/18 21:00 11/25/18 10:21 Pepcid Tab* PO 20 mg BID ELROY Administration Glipizide 2.5 mg 11/20/18 09:00 11/25/18 10:15 Glucotrol Xl* PO 2.5 mg DAILY ELROY Administration Insulin Human Lispro 0 - 10 units 11/23/18 21:00 11/25/18 17:10 Humalog* SUBCUT 4 unit ACHS ELROY Administration Protocol Lactobacillus Rhamnosus 1 tab 11/13/18 09:00 11/25/18 10:22 Lactobacillus Acidophilus* PO 1 tab DAILY ELROY Administration Lisinopril 40 mg 11/13/18 09:00 11/25/18 10:22 Prinivil Tab* PO 40 mg DAILY ELROY Administration Loperamide HCl 2 mg 11/12/18 19:31 11/15/18 00:02 Imodium Cap* PO 2 mg .SEE DIRECTIONS PRN Administration DIARRHEA Lorazepam 0.5 mg 11/15/18 16:31 11/22/18 21:00 Ativan Tab(*) PO 0.5 mg BEDTIME PRN Administration ANXIETY Magnesium Hydroxide 30 ml 11/12/18 14:09 Milk Of Magnesia Liq* PO Q6H PRN CONSTIPATION Methocarbamol 500 mg 11/22/18 09:29 11/22/18 16:20 Robaxin Tab* PO 500 mg QID PRN Administration spasm Metoclopramide HCl 5 mg 11/16/18 07:30 11/25/18 17:08 Reglan Tab* PO 5 mg AC ELROY Administration Pto: (Daily 1 cap 11/22/18 09:30 11/25/18 10:19 Essential Enzymes 1 PO 1 cap Cap) DAILY ELROY Administration Pto: (Dr. Vee's D3 1 cap 11/22/18 09:45 11/25/18 10:21 & K2 Vitamin 1 Cap) PO 1 cap DAILY ELROY Administration Pto: (Gallbladder 1 cap 11/22/18 09:45 11/25/18 10:20 Formula 1 Cap) PO 1 cap DAILY ELROY Administration Senna 2 tab 11/12/18 14:09 11/23/18 20:53 Senokot Tab* PO 2 tab BEDTIME PRN Administration CONSTIPATION Sertraline HCl 25 mg 11/14/18 09:00 11/25/18 10:21 Zoloft* PO 25 mg DAILY ELROY Administration Sitagliptin Phosphate 100 mg 11/13/18 09:00 11/25/18 10:22 Januvia (Nf) PO 100 mg DAILY ELROY Administration Vital Signs: Vital Signs Temp Pulse Resp BP Pulse Ox 98.0 F 58 16 128/60 99 11/25/18 15:35 11/25/18 15:35 11/25/18 18:42 11/25/18 15:35 11/25/18 18:42 Lab Results: Laboratory Results - last 24 hr 11/24/18 11/24/18 11/25/18 16:38 21:06 07:32 POC Glucose (mg/dL) 163 H 232 H 154 H 11/25/18 11/25/18 11:41 16:02 POC Glucose (mg/dL) 189 H 216 H Exam: GENERAL: no acute distress. alert and appropriate with hypophonia, but more understandable. LUNGS: Clear to auscultation bilaterally. HEART: regular rate and rhythm with occasional skipped beat ABDOMEN: Soft, + bowel sound, non-tender, non-distended EXTREMITIES: Mildly increased tone in right UE and LE. No edema. NEUROLOGIC: Dysarthric .5/5 motor in LUE and LLE. 0/5 throughout RUE and RLE except trace hip adduction. Sensation intact x4. Right facial droop. Assessment/Plan: 1. Left CVA with dense right hemiplegia: ASA. PT/OT/RN POOL. 2. DM: glipizide/Januvia/SSI. Off metformin for now due to increased creatinine. Cr 1.28. Increased SSI 3. HTN: Lisinopril 4. Hyperlipidemia: Lipitor 80mg qday 5. Diarrhea: Improving 6. Dysphagia: Mechanical soft diet/thin liquids 7. DVT Prophylaxis: Lovenox 8. Renal insufficiency: Increased Cr with lower BUN/Cr ratio. 9. Advance Directives: Full code. is surrogate decision maker 10. Leg cramp: on scheduled baclofen. 11. Nutrition: his brought in some supplements. 11/25/18 19:51
[2018-11-25] MEDS: Acetaminophen TAB* 325 MG PO PRN (21:35)
[2018-11-25] MEDS: Enoxaparin(*) 40 MG/0.4 ML SYR SUBCUT SCH (21:39)
[2018-11-26] MEDS: Methocarbamol TAB* 500 MG PO PRN ×3 (00:01→20:53)
[2018-11-26] MEDS: Metoclopramide TAB* 10 MG PO SCH ×3 (07:31→16:30)
[2018-11-26] MEDS: GALLBLADDER FORMULA PO SCH ×3 (07:31→16:29)
[2018-11-26] MEDS: Insulin LISPRO* 1 UNITS UNIT SUBCUT SCH ×4 (07:44→20:50)
[2018-11-26] MEDS: [UNRECOGNIZED DRUG - REMARK] PO SCH (10:35)
[2018-11-26] MEDS: [UNRECOGNIZED DRUG - OTHER] PO SCH (10:35)
[2018-11-26] MEDS: Aspirin EC TAB* 325 MG PO SCH (10:36)
[2018-11-26] MEDS: Famotidine TAB* 20 MG PO SCH ×2 (10:36→20:26)
[2018-11-26] MEDS: Baclofen TAB* 10 MG PO SCH ×3 (10:36→20:25)
[2018-11-26] MEDS: Lisinopril TAB* 10 MG PO SCH (10:36)
[2018-11-26] MEDS: Sertraline* 25 MG TAB PO SCH (10:36)
[2018-11-26] MEDS: Lactobacillus Acidophilus* 1 TAB PO SCH (10:37)
[2018-11-26] MEDS: glipiZIDE TAB.XL* 2.5 MG PO SCH (10:37)
[2018-11-26] MEDS: CMC:SitaGLIPtin (NF) 100 MG TAB PO SCH (10:37)
[2018-11-26] MEDS: Atorvastatin* 80 MG TAB PO SCH (16:30)
--- NOTE | 2018-11-26 18:30 | PN ---
Progress Note Date of Service: 11/26/18 Note: KEERTHI LEHMAN was visited. Therapy notes read and reviewed. Remains weak on right but voice better. No return yet Current Medications: Active Medications Generic Name Dose Route Start Last Admin Trade Name Freq PRN Reason Stop Dose Admin Acetaminophen 650 mg 11/12/18 18:05 11/25/18 21:35 Tylenol Tab* PO 650 mg Q6H PRN Administration FEVER/PAIN Al Hydrox/Mg Hydrox/Simethicone 30 ml 11/13/18 13:46 11/13/18 13:57 Maalox Plus* PO 30 ml Q4H PRN Administration DYSPEPSIA Aspirin 325 mg 11/13/18 09:00 11/26/18 10:36 Ecotrin Ec Tab* PO 325 mg DAILY ELROY Administration Atorvastatin Calcium 80 mg 11/12/18 17:00 11/26/18 16:30 Lipitor* PO 80 mg 1700 ELROY Administration Baclofen 5 mg 11/23/18 14:00 11/26/18 14:01 Lioresal Tab* PO Not Given TID ELROY Bisacodyl 10 mg 11/12/18 14:09 11/17/18 21:08 Dulcolax Supp* [place] 10 mg DAILY PRN Administration CONSTIPATION Dextrose 12.5 gm 11/12/18 14:42 D50w Syringe 50 Ml* IV PUSH .FOR FS < 60 - SS PRN FS < 60 Docusate Sodium 100 mg 11/12/18 19:32 11/17/18 20:57 Colace Cap* PO 100 mg BID PRN Administration CONSTIPATION Enoxaparin Sodium 40 mg 11/12/18 20:30 11/25/18 21:39 Lovenox(*) SUBCUT 40 mg Q24H ELROY Administration Famotidine 20 mg 11/13/18 21:00 11/26/18 10:36 Pepcid Tab* PO 20 mg BID ELROY Administration Glipizide 5 mg 11/26/18 09:00 11/26/18 10:37 Glucotrol Xl* PO 5 mg DAILY ELROY Administration Insulin Human Lispro 0 - 10 units 11/23/18 21:00 11/26/18 16:51 Humalog* SUBCUT 2 unit ACHS ELROY Administration Protocol Lactobacillus Rhamnosus 1 tab 11/13/18 09:00 11/26/18 10:37 Lactobacillus Acidophilus* PO 1 tab DAILY ELROY Administration Lisinopril 40 mg 11/13/18 09:00 11/26/18 10:36 Prinivil Tab* PO 40 mg DAILY ELROY Administration Loperamide HCl 2 mg 11/12/18 19:31 11/15/18 00:02 Imodium Cap* PO 2 mg .SEE DIRECTIONS PRN Administration DIARRHEA Lorazepam 0.5 mg 11/15/18 16:31 11/22/18 21:00 Ativan Tab(*) PO 0.5 mg BEDTIME PRN Administration ANXIETY Magnesium Hydroxide 30 ml 11/12/18 14:09 Milk Of Magnesia Liq* PO Q6H PRN CONSTIPATION Methocarbamol 500 mg 11/22/18 09:29 11/26/18 10:37 Robaxin Tab* PO 500 mg QID PRN Administration spasm Metoclopramide HCl 5 mg 11/16/18 07:30 11/26/18 16:30 Reglan Tab* PO 5 mg AC ELROY Administration Pto: (Daily 1 cap 11/22/18 09:30 11/26/18 10:35 Essential Enzymes 1 PO 1 cap Cap) DAILY ELROY Administration Pto: (Dr. Vee's D3 1 cap 11/22/18 09:45 11/26/18 10:35 & K2 Vitamin 1 Cap) PO 1 cap DAILY ELROY Administration Pto:(Gallbladder 1 cap 11/26/18 07:30 11/26/18 16:29 Formula 1 Cap) PO 1 cap AC ELROY Administration Senna 2 tab 11/12/18 14:09 11/23/18 20:53 Senokot Tab* PO 2 tab BEDTIME PRN Administration CONSTIPATION Sertraline HCl 25 mg 11/14/18 09:00 11/26/18 10:36 Zoloft* PO 25 mg DAILY ELROY Administration Sitagliptin Phosphate 100 mg 11/13/18 09:00 11/26/18 10:37 Januvia (Nf) PO 100 mg DAILY ELROY Administration Vital Signs: Vital Signs Temp Pulse Resp BP Pulse Ox 98.4 F 54 18 119/65 96 11/26/18 16:22 11/26/18 16:22 11/26/18 13:05 11/26/18 16:22 11/26/18 16:22 Lab Results: Laboratory Results - last 24 hr 11/25/18 11/26/18 11/26/18 21:14 07:31 11:46 POC Glucose (mg/dL) 154 H 198 H 148 H 11/26/18 16:29 POC Glucose (mg/dL) 158 H Exam: GENERAL: no acute distress. alert and appropriate with hypophonia, but more understandable. LUNGS: Clear to auscultation bilaterally. HEART: regular rate and rhythm with occasional skipped beat ABDOMEN: Soft, + bowel sound, non-tender, non-distended EXTREMITIES: Mildly increased tone in right UE and LE. No edema. NEUROLOGIC: Dysarthric .5/5 motor in LUE and LLE. 0/5 throughout RUE and RLE except trace hip adduction. Sensation intact x4. Right facial droop. Assessment/Plan: 1. Left CVA with dense right hemiplegia: ASA. 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 2. DM: glipizide/Januvia/SSI. Off metformin for now due to increased creatinine. Cr 1.28. Increased SSI. May need Lantus 3. HTN: Lisinopril 4. Hyperlipidemia: Lipitor 80mg qday 5. Diarrhea: Improving 6. Dysphagia: Mechanical soft diet/thin liquids 7. DVT Prophylaxis: Lovenox 8. Renal insufficiency: Increased Cr with lower BUN/Cr ratio. 9. Advance Directives: Full code. is surrogate decision maker 10. Leg cramp: on scheduled baclofen. 11. Nutrition: his brought in some supplements. 11/26/18 18:30 11/26/18 18:30
[2018-11-26] MEDS: Enoxaparin(*) 40 MG/0.4 ML SYR SUBCUT SCH (20:24)
[2018-11-27] MEDS: Metoclopramide TAB* 10 MG PO SCH ×3 (07:31→17:00)
[2018-11-27] MEDS: [UNRECOGNIZED DRUG - OTHER] PO SCH (07:31)
[2018-11-27] MEDS: GALLBLADDER FORMULA PO SCH ×3 (07:32→16:59)
[2018-11-27] MEDS: [UNRECOGNIZED DRUG - REMARK] PO SCH (07:32)
[2018-11-27] MEDS: CMC:SitaGLIPtin (NF) 100 MG TAB PO SCH (08:30)
[2018-11-27] MEDS: Aspirin EC TAB* 325 MG PO SCH (08:30)
[2018-11-27] MEDS: Baclofen TAB* 10 MG PO SCH ×3 (08:31→20:02)
[2018-11-27] MEDS: glipiZIDE TAB.XL* 2.5 MG PO SCH (08:32)
[2018-11-27] MEDS: Lactobacillus Acidophilus* 1 TAB PO SCH (08:34)
[2018-11-27] MEDS: Lisinopril TAB* 10 MG PO SCH (08:34)
[2018-11-27] MEDS: Sertraline* 25 MG TAB PO SCH (08:34)
[2018-11-27] MEDS: Famotidine TAB* 20 MG PO SCH ×2 (08:34→20:02)
[2018-11-27 09:00] LABS: ABS Basophils 0.1 10^3/ul (0-0.2); ABS Eosinophils 0.3 10^3/ul (0-0.6); ABS Lymphocytes 1.4 10^3/ul (1.0-4.8); ABS Monocytes 0.7 10^3/ul (0-0.8); ABS Nucleated RBC 0 10^3/ul; Eosinophil % 3.9 %; Hematocrit 45 % (36-46); Hemoglobin 14.7 g/dL (14.0-18.0); Lymphocyte % 18.5 %; Mean Corpuscular HGB Conc 33 g/dL (31-36); Mean Corpuscular Hemoglobin 30 pg (27-31); Mean Corpuscular Volume 92 fL (80-94); Mean Platelet Volume 9.2 fL (7.4-10.4); Nucleated Red Blood Cells % 0; Platelet Count 316 10^3/uL (150-450); Red Cell Distribution Width 14 % (10.5-15); White Blood Count 7.5 10^3/uL (3.5-10.8)
[2018-11-27 09:30] LABS: Albumin 4.2 g/dL (3.2-5.2); Albumin/Globulin Ratio 1.4 (1-3); BUN/Creatinine Ratio 30.1 (8-20); Calcium 10.7 mg/dL (8.6-10.3); EGFR African American 69.8 (>60); EGFR Non-African American 57.7 (>60); Globulin 2.9 g/dL (2-4); Potassium 4.9 mmol/L (3.5-5.0); Total Bilirubin 0.4 mg/dL (0.2-1.0); Total Protein 7.1 g/dL (6.4-8.9)
[2018-11-27] MEDS: Insulin LISPRO* 1 UNITS UNIT SUBCUT SCH ×4 (09:47→20:47)
--- NOTE | 2018-11-27 16:06 | PN ---
Progress Note Date of Service: 11/27/18 Note: KEERTHI LEHMAN was visited. Therapy notes read and reviewed. He says he slept better last night and had no spasms wake him. VOice fairly strong Current Medications: Active Medications Generic Name Dose Route Start Last Admin Trade Name Freq PRN Reason Stop Dose Admin Acetaminophen 650 mg 11/12/18 18:05 11/25/18 21:35 Tylenol Tab* PO 650 mg Q6H PRN Administration FEVER/PAIN Al Hydrox/Mg Hydrox/Simethicone 30 ml 11/13/18 13:46 11/13/18 13:57 Maalox Plus* PO 30 ml Q4H PRN Administration DYSPEPSIA Aspirin 325 mg 11/13/18 09:00 11/27/18 08:30 Ecotrin Ec Tab* PO 325 mg DAILY ELROY Administration Atorvastatin Calcium 80 mg 11/12/18 17:00 11/26/18 16:30 Lipitor* PO 80 mg 1700 ELROY Administration Baclofen 5 mg 11/23/18 14:00 11/27/18 14:33 Lioresal Tab* PO 5 mg TID ELROY Administration Bisacodyl 10 mg 11/12/18 14:09 11/17/18 21:08 Dulcolax Supp* [place] 10 mg DAILY PRN Administration CONSTIPATION Dextrose 12.5 gm 11/12/18 14:42 D50w Syringe 50 Ml* IV PUSH .FOR FS < 60 - SS PRN FS < 60 Docusate Sodium 100 mg 11/12/18 19:32 11/17/18 20:57 Colace Cap* PO 100 mg BID PRN Administration CONSTIPATION Enoxaparin Sodium 40 mg 11/12/18 20:30 11/26/18 20:24 Lovenox(*) SUBCUT 40 mg Q24H ELROY Administration Famotidine 20 mg 11/13/18 21:00 11/27/18 08:34 Pepcid Tab* PO 20 mg BID ELROY Administration Glipizide 5 mg 11/26/18 09:00 11/27/18 08:32 Glucotrol Xl* PO 5 mg DAILY ELROY Administration Insulin Human Lispro 0 - 10 units 11/23/18 21:00 11/27/18 12:01 Humalog* SUBCUT 2 unit ACHS ELROY Administration Protocol Lactobacillus Rhamnosus 1 tab 11/13/18 09:00 11/27/18 08:34 Lactobacillus Acidophilus* PO 1 tab DAILY ELROY Administration Lisinopril 40 mg 11/13/18 09:00 11/27/18 08:34 Prinivil Tab* PO 40 mg DAILY ELROY Administration Loperamide HCl 2 mg 11/12/18 19:31 11/15/18 00:02 Imodium Cap* PO 2 mg .SEE DIRECTIONS PRN Administration DIARRHEA Lorazepam 0.5 mg 11/15/18 16:31 11/22/18 21:00 Ativan Tab(*) PO 0.5 mg BEDTIME PRN Administration ANXIETY Magnesium Hydroxide 30 ml 11/12/18 14:09 Milk Of Magnesia Liq* PO Q6H PRN CONSTIPATION Methocarbamol 500 mg 11/22/18 09:29 11/26/18 20:53 Robaxin Tab* PO 500 mg QID PRN Administration spasm Metoclopramide HCl 5 mg 11/16/18 07:30 11/27/18 12:01 Reglan Tab* PO 5 mg AC ELROY Administration Pto: (Daily 1 cap 11/22/18 09:30 11/27/18 07:31 Essential Enzymes 1 PO 1 cap Cap) DAILY ELROY Administration Pto: (Dr. Vee's D3 1 cap 11/22/18 09:45 11/27/18 07:32 & K2 Vitamin 1 Cap) PO 1 cap DAILY ELROY Administration Pto:(Gallbladder 1 cap 11/26/18 07:30 11/27/18 12:01 Formula 1 Cap) PO 1 cap AC ELROY Administration Senna 2 tab 11/12/18 14:09 11/23/18 20:53 Senokot Tab* PO 2 tab BEDTIME PRN Administration CONSTIPATION Sertraline HCl 25 mg 11/14/18 09:00 11/27/18 08:34 Zoloft* PO 25 mg DAILY ELROY Administration Sitagliptin Phosphate 100 mg 11/13/18 09:00 11/27/18 08:30 Januvia (Nf) PO 100 mg DAILY ELROY Administration Vital Signs: Vital Signs Temp Pulse Resp BP Pulse Ox 97.7 F 51 12 141/62 98 11/27/18 05:00 11/27/18 05:00 11/27/18 05:00 11/27/18 05:00 11/27/18 05:00 Lab Results: Laboratory Results - last 24 hr 11/26/18 11/26/18 11/27/18 16:29 20:29 07:26 WBC RBC Hgb Hct MCV MCH MCHC RDW Plt Count MPV Neut % (Auto) Lymph % (Auto) Hawkins % (Auto) Eos % (Auto) Baso % (Auto) Absolute Neuts (auto) Absolute Lymphs (auto) Absolute Monos (auto) Absolute Eos (auto) Absolute Basos (auto) Absolute Nucleated RBC Nucleated RBC % Sodium Potassium Chloride Carbon Dioxide Anion Gap BUN Creatinine Est GFR ( Amer) Est GFR (Non-Af Amer) BUN/Creatinine Ratio Glucose POC Glucose (mg/dL) 158 H 157 H 161 H Calcium Total Bilirubin AST ALT Alkaline Phosphatase Total Protein Albumin Globulin Albumin/Globulin Ratio 11/27/18 11/27/18 11/27/18 08:51 08:51 11:30 WBC 7.5 RBC 4.90 Hgb 14.7 Hct 45 MCV 92 MCH 30 MCHC 33 RDW 14 Plt Count 316 MPV 9.2 Neut % (Auto) 66.6 Lymph % (Auto) 18.5 Hawkins % (Auto) 9.7 Eos % (Auto) 3.9 Baso % (Auto) 1.3 Absolute Neuts (auto) 5.0 Absolute Lymphs (auto) 1.4 Absolute Monos (auto) 0.7 Absolute Eos (auto) 0.3 Absolute Basos (auto) 0.1 Absolute Nucleated RBC 0 Nucleated RBC % 0 Sodium 139 Potassium 4.9 Chloride 106 Carbon Dioxide 26 Anion Gap 7 BUN 37 H Creatinine 1.23 H Est GFR ( Amer) 69.8 Est GFR (Non-Af Amer) 57.7 BUN/Creatinine Ratio 30.1 H Glucose 178 H POC Glucose (mg/dL) 195 H Calcium 10.7 H Total Bilirubin 0.40 AST 19 ALT 36 Alkaline Phosphatase 70 Total Protein 7.1 Albumin 4.2 Globulin 2.9 Albumin/Globulin Ratio 1.4 Exam: GENERAL: no acute distress. alert and appropriate with hypophonia, but more understandable. LUNGS: Clear to auscultation bilaterally. HEART: regular rate and rhythm with occasional skipped beat ABDOMEN: Soft, + bowel sound, non-tender, non-distended EXTREMITIES: Mildly increased tone in right UE and LE. No edema. NEUROLOGIC: Dysarthric .5/5 motor in LUE and LLE. 0/5 throughout RUE and RLE except trace hip adduction. Sensation intact x4. Right facial droop. Assessment/Plan: 1. Left CVA with dense right hemiplegia: ASA. 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 2. DM: glipizide/Januvia/SSI. Off metformin for now due to increased creatinine. Cr 1.23. Increased SSI. May need Lantus 3. HTN: Lisinopril 4. Hyperlipidemia: Lipitor 80mg qday 5. Dysphagia: Mechanical soft diet/thin liquids 6. DVT Prophylaxis: Lovenox 7. Renal insufficiency: Increased Cr with lower BUN/Cr ratio. 8. Advance Directives: Full code. 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 Leg spasms: on scheduled baclofen. 10. Nutrition: his brought in some supplements. 11/27/18 16:06 11/27/18 16:07
[2018-11-27] MEDS: Atorvastatin* 80 MG TAB PO SCH (17:00)
[2018-11-27] MEDS: Acetaminophen TAB* 325 MG PO PRN (19:00)
[2018-11-27] MEDS: Enoxaparin(*) 40 MG/0.4 ML SYR SUBCUT SCH (19:59)
[2018-11-27] MEDS: Methocarbamol TAB* 500 MG PO PRN (20:01)
[2018-11-28] MEDS: [UNRECOGNIZED DRUG - OTHER] PO SCH (08:43)
[2018-11-28] MEDS: GALLBLADDER FORMULA PO SCH ×3 (08:43→16:51)
[2018-11-28] MEDS: [UNRECOGNIZED DRUG - REMARK] PO SCH (08:44)
[2018-11-28] MEDS: glipiZIDE TAB.XL* 2.5 MG PO SCH (08:44)
[2018-11-28] MEDS: Metoclopramide TAB* 10 MG PO SCH ×3 (08:44→16:50)
[2018-11-28] MEDS: Baclofen TAB* 10 MG PO SCH ×3 (08:45→21:39)
[2018-11-28] MEDS: Sertraline* 25 MG TAB PO SCH (08:46)
[2018-11-28] MEDS: Lisinopril TAB* 10 MG PO SCH (08:46)
[2018-11-28] MEDS: Famotidine TAB* 20 MG PO SCH ×2 (08:47→21:46)
[2018-11-28] MEDS: CMC:SitaGLIPtin (NF) 100 MG TAB PO SCH (08:47)
[2018-11-28] MEDS: Lactobacillus Acidophilus* 1 TAB PO SCH (08:47)
[2018-11-28] MEDS: Aspirin EC TAB* 325 MG PO SCH (08:47)
[2018-11-28] MEDS: Insulin LISPRO* 1 UNITS UNIT SUBCUT SCH ×4 (08:49→21:32)
[2018-11-28] MEDS: Atorvastatin* 80 MG TAB PO SCH (16:50)
[2018-11-28] MEDS: Acetaminophen TAB* 325 MG PO PRN (18:06)
[2018-11-28] MEDS: Enoxaparin(*) 40 MG/0.4 ML SYR SUBCUT SCH (21:34)
[2018-11-29] MEDS: Lisinopril TAB* 10 MG PO SCH (08:18)
[2018-11-29] MEDS: Metoclopramide TAB* 10 MG PO SCH ×3 (08:19→17:17)
[2018-11-29] MEDS: Famotidine TAB* 20 MG PO SCH ×2 (08:19→21:04)
[2018-11-29] MEDS: CMC:SitaGLIPtin (NF) 100 MG TAB PO SCH (08:19)
[2018-11-29] MEDS: Sertraline* 25 MG TAB PO SCH (08:19)
[2018-11-29] MEDS: Lactobacillus Acidophilus* 1 TAB PO SCH (08:19)
[2018-11-29] MEDS: Aspirin EC TAB* 325 MG PO SCH (08:19)
[2018-11-29] MEDS: Baclofen TAB* 10 MG PO SCH ×3 (08:20→21:12)
[2018-11-29] MEDS: glipiZIDE TAB.XL* 2.5 MG PO SCH (08:21)
[2018-11-29] MEDS: [UNRECOGNIZED DRUG - REMARK] PO SCH (08:22)
[2018-11-29] MEDS: GALLBLADDER FORMULA PO SCH ×3 (08:22→17:18)
[2018-11-29] MEDS: [UNRECOGNIZED DRUG - OTHER] PO SCH (08:22)
[2018-11-29] MEDS: Insulin LISPRO* 1 UNITS UNIT SUBCUT SCH ×4 (08:28→21:00)
--- NOTE | 2018-11-29 16:29 | PN ---
Progress Note Date of Service: 11/29/18 Note: KEERTHI LEHMAN was visited. Nursing notes read and reviewed. He is doing okay without any complaints. Current Medications: Active Medications Generic Name Dose Route Start Last Admin Trade Name Freq PRN Reason Stop Dose Admin Acetaminophen 650 mg 11/12/18 18:05 11/28/18 18:06 Tylenol Tab* PO 650 mg Q6H PRN Administration FEVER/PAIN Al Hydrox/Mg Hydrox/Simethicone 30 ml 11/13/18 13:46 11/13/18 13:57 Maalox Plus* PO 30 ml Q4H PRN Administration DYSPEPSIA Aspirin 325 mg 11/13/18 09:00 11/29/18 08:19 Ecotrin Ec Tab* PO 325 mg DAILY ELROY Administration Atorvastatin Calcium 80 mg 11/12/18 17:00 11/28/18 16:50 Lipitor* PO 80 mg 1700 ELROY Administration Baclofen 5 mg 11/23/18 14:00 11/29/18 14:43 Lioresal Tab* PO 5 mg TID ELROY Administration Bisacodyl 10 mg 11/12/18 14:09 11/17/18 21:08 Dulcolax Supp* [place] 10 mg DAILY PRN Administration CONSTIPATION Dextrose 12.5 gm 11/12/18 14:42 D50w Syringe 50 Ml* IV PUSH .FOR FS < 60 - SS PRN FS < 60 Docusate Sodium 100 mg 11/12/18 19:32 11/17/18 20:57 Colace Cap* PO 100 mg BID PRN Administration CONSTIPATION Enoxaparin Sodium 40 mg 11/12/18 20:30 11/28/18 21:34 Lovenox(*) SUBCUT 40 mg Q24H ELROY Administration Famotidine 20 mg 11/13/18 21:00 11/29/18 08:19 Pepcid Tab* PO 20 mg BID ELROY Administration Glipizide 5 mg 11/26/18 09:00 11/29/18 08:21 Glucotrol Xl* PO 5 mg DAILY ELROY Administration Insulin Human Lispro 0 - 10 units 11/23/18 21:00 11/29/18 11:48 Humalog* SUBCUT 4 unit ACHS ELROY Administration Protocol Lactobacillus Rhamnosus 1 tab 11/13/18 09:00 11/29/18 08:19 Lactobacillus Acidophilus* PO 1 tab DAILY ELROY Administration Lisinopril 40 mg 11/13/18 09:00 11/29/18 08:18 Prinivil Tab* PO 40 mg DAILY ELROY Administration Loperamide HCl 2 mg 11/12/18 19:31 11/15/18 00:02 Imodium Cap* PO 2 mg .SEE DIRECTIONS PRN Administration DIARRHEA Magnesium Hydroxide 30 ml 11/12/18 14:09 Milk Of Magnesia Liq* PO Q6H PRN CONSTIPATION Methocarbamol 500 mg 11/22/18 09:29 11/27/18 20:01 Robaxin Tab* PO 500 mg QID PRN Administration spasm Metoclopramide HCl 5 mg 11/16/18 07:30 11/29/18 11:46 Reglan Tab* PO 5 mg AC ELROY Administration Pto: (Daily 1 cap 11/22/18 09:30 11/29/18 08:22 Essential Enzymes 1 PO 1 cap Cap) DAILY ELROY Administration Pto: (Dr. Vee's D3 1 cap 11/22/18 09:45 11/29/18 08:22 & K2 Vitamin 1 Cap) PO 1 cap DAILY ELROY Administration Pto:(Gallbladder 1 cap 11/26/18 07:30 11/29/18 11:46 Formula 1 Cap) PO 1 cap AC ELROY Administration Senna 2 tab 11/12/18 14:09 11/23/18 20:53 Senokot Tab* PO 2 tab BEDTIME PRN Administration CONSTIPATION Sertraline HCl 25 mg 11/14/18 09:00 11/29/18 08:19 Zoloft* PO 25 mg DAILY ELROY Administration Sitagliptin Phosphate 100 mg 11/13/18 09:00 11/29/18 08:19 Januvia (Nf) PO 100 mg DAILY ELROY Administration Vital Signs: Vital Signs Temp Pulse Resp BP Pulse Ox 98.0 F 68 19 97/57 99 11/29/18 14:53 11/29/18 14:53 11/29/18 14:53 11/29/18 14:53 11/29/18 14:53 Lab Results: Laboratory Results - last 24 hr 11/28/18 11/29/18 11/29/18 20:56 07:37 11:13 POC Glucose (mg/dL) 223 H 159 H 219 H Exam: GENERAL: no acute distress. alert and appropriate with hypophonia, but more understandable. LUNGS: Clear to auscultation bilaterally. HEART: regular rate and rhythm with occasional skipped beat ABDOMEN: Soft, + bowel sound, non-tender, non-distended EXTREMITIES: Mildly increased tone in right UE and LE. No edema. NEUROLOGIC: Dysarthric .5/5 motor in LUE and LLE. 0/5 throughout RUE and RLE except trace hip adduction. Sensation intact x4. Right facial droop. Assessment/Plan: 1. Left CVA with dense right hemiplegia: ASA. 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 2. DM: glipizide/Januvia/SSI. Off metformin for now due to increased creatinine. Cr 1.23. Increased SSI. Will start Lantus 3. HTN: Lisinopril 4. Hyperlipidemia: Lipitor 80mg qday 5. Dysphagia: Mechanical soft diet/thin liquids 6. DVT Prophylaxis: Lovenox 7. Renal insufficiency: Increased Cr with lower BUN/Cr ratio. 8. Advance Directives: Full code. 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 Leg spasms: on scheduled baclofen. 10. Nutrition: his brought in some supplements. 11/29/18 16:29
[2018-11-29] MEDS: Atorvastatin* 80 MG TAB PO SCH (17:18)
[2018-11-29] MEDS: Enoxaparin(*) 40 MG/0.4 ML SYR SUBCUT SCH (20:57)
[2018-11-29] MEDS: Insulin GLARGINE(*) 1 UNITS UNIT SUBCUT SCH (21:01)
[2018-11-29] MEDS: Docusate CAP* 100 MG PO PRN (21:04)
[2018-11-29] MEDS: Senna TAB PO PRN (21:04)
[2018-11-29] MEDS: Magnesium Hydroxide LIQ* 30 ML UDC PO PRN (21:06)
[2018-11-29] MEDS: Methocarbamol TAB* 500 MG PO PRN (21:11)
[2018-11-29] MEDS: Acetaminophen TAB* 325 MG PO PRN (22:40)
[2018-11-30] MEDS: Metoclopramide TAB* 10 MG PO SCH ×3 (07:41→16:39)
[2018-11-30] MEDS: GALLBLADDER FORMULA PO SCH ×3 (07:42→16:49)
[2018-11-30] MEDS: [UNRECOGNIZED DRUG - OTHER] PO SCH ×2 (07:42→08:34)
[2018-11-30] MEDS: Docusate CAP* 100 MG PO PRN (08:32)
[2018-11-30] MEDS: Magnesium Hydroxide LIQ* 30 ML UDC PO PRN (08:32)
[2018-11-30] MEDS: Insulin LISPRO* 1 UNITS UNIT SUBCUT SCH ×4 (08:33→20:43)
[2018-11-30] MEDS: Aspirin EC TAB* 325 MG PO SCH (08:34)
[2018-11-30] MEDS: Famotidine TAB* 20 MG PO SCH ×2 (08:34→20:44)
[2018-11-30] MEDS: Lisinopril TAB* 10 MG PO SCH (08:34)
[2018-11-30] MEDS: [UNRECOGNIZED DRUG - REMARK] PO SCH (08:34)
[2018-11-30] MEDS: Baclofen TAB* 10 MG PO SCH ×3 (08:35→20:44)
[2018-11-30] MEDS: Sertraline* 25 MG TAB PO SCH (08:35)
[2018-11-30] MEDS: CMC:SitaGLIPtin (NF) 100 MG TAB PO SCH (08:35)
[2018-11-30] MEDS: Lactobacillus Acidophilus* 1 TAB PO SCH (08:35)
[2018-11-30] MEDS: glipiZIDE TAB.XL* 2.5 MG PO SCH (08:36)
[2018-11-30] MEDS: Methocarbamol TAB* 500 MG PO PRN (08:44)
[2018-11-30] MEDS: Atorvastatin* 80 MG TAB PO SCH (16:40)
--- NOTE | 2018-11-30 17:03 | PN ---
Progress Note Date of Service: 11/30/18 Note: KEERTHI LEHMAN was visited. Therapy notes read and reviewed. Now on Lantus in addition to glucotrol. His BS are better today. No return seen on right Current Medications: Active Medications Generic Name Dose Route Start Last Admin Trade Name Dee PRN Reason Stop Dose Admin Acetaminophen 650 mg 11/12/18 18:05 11/29/18 22:40 Tylenol Tab* PO 650 mg Q6H PRN Administration FEVER/PAIN Al Hydrox/Mg Hydrox/Simethicone 30 ml 11/13/18 13:46 11/13/18 13:57 Maalox Plus* PO 30 ml Q4H PRN Administration DYSPEPSIA Aspirin 325 mg 11/13/18 09:00 11/30/18 08:34 Ecotrin Ec Tab* PO 325 mg DAILY ELROY Administration Atorvastatin Calcium 80 mg 11/12/18 17:00 11/30/18 16:40 Lipitor* PO 80 mg 1700 ELROY Administration Baclofen 5 mg 11/23/18 14:00 11/30/18 15:03 Lioresal Tab* PO 5 mg TID ELROY Administration Bisacodyl 10 mg 11/12/18 14:09 11/17/18 21:08 Dulcolax Supp* W[place] 10 mg DAILY PRN Administration CONSTIPATION Dextrose 12.5 gm 11/12/18 14:42 [id number] Syringe 50 Ml* IV PUSH .FOR FS < 60 - SS PRN FS < 60 Docusate Sodium 100 mg 11/12/18 19:32 11/30/18 08:32 Colace Cap* PO 100 mg BID PRN Administration CONSTIPATION Enoxaparin Sodium 40 mg 11/12/18 20:30 11/29/18 20:57 Lovenox(*) SUBCUT 40 mg Q24H ELROY Administration Famotidine 20 mg 11/13/18 21:00 11/30/18 08:34 Pepcid Tab* PO 20 mg BID ELROY Administration Glipizide 5 mg 12/01/18 09:00 Glucotrol Xl* PO DAILY ELROY Insulin Glargine 10 units 11/29/18 20:00 11/29/18 21:01 Lantus(*) SUBCUT 10 units Q24H ELROY Administration Insulin Human Lispro 0 - 10 units 11/23/18 21:00 11/30/18 16:41 Humalog* SUBCUT Not Given ACHS ELROY Protocol Lactobacillus Rhamnosus 1 tab 11/13/18 09:00 11/30/18 08:35 Lactobacillus Acidophilus* PO 1 tab DAILY ELROY Administration Lisinopril 40 mg 11/13/18 09:00 11/30/18 08:34 Prinivil Tab* PO 40 mg DAILY ELROY Administration Loperamide HCl 2 mg 11/12/18 19:31 11/15/18 00:02 Imodium Cap* PO 2 mg .SEE DIRECTIONS PRN Administration DIARRHEA Magnesium Hydroxide 30 ml 11/12/18 14:09 11/30/18 08:32 Milk Of Magnesia Liq* PO 30 ml Q6H PRN Administration CONSTIPATION Methocarbamol 500 mg 11/22/18 09:29 11/30/18 08:44 Robaxin Tab* PO 500 mg QID PRN Administration spasm Metoclopramide HCl 5 mg 11/16/18 07:30 11/30/18 16:39 Reglan Tab* PO 5 mg AC ELROY Administration Pto: (Daily 1 cap 11/22/18 09:30 11/30/18 08:34 Essential Enzymes 1 PO 1 cap Cap) DAILY ELROY Administration Pto: (Dr. Vee's D3 1 cap 11/22/18 09:45 11/30/18 08:34 & K2 Vitamin 1 Cap) PO 1 cap DAILY ELROY Administration Pto:(Gallbladder 1 cap 11/26/18 07:30 11/30/18 16:49 Formula 1 Cap) PO 1 cap AC ELROY Administration Senna 2 tab 11/12/18 14:09 11/29/18 21:04 Senokot Tab* PO 2 tab BEDTIME PRN Administration CONSTIPATION Sertraline HCl 25 mg 11/14/18 09:00 11/30/18 08:35 Zoloft* PO 25 mg DAILY ELROY Administration Sitagliptin Phosphate 100 mg 11/13/18 09:00 11/30/18 08:35 Januvia (Nf) PO 100 mg DAILY ELROY Administration Vital Signs: Vital Signs Temp Pulse Resp BP Pulse Ox 98.0 F 76 18 141/66 93 11/30/18 16:00 11/30/18 16:00 11/30/18 16:53 11/30/18 16:00 11/30/18 16:53 Lab Results: Laboratory Results - last 24 hr 11/29/18 11/29/18 11/30/18 16:55 20:28 07:45 POC Glucose (mg/dL) 123 H 173 H 161 H 11/30/18 11/30/18 11:36 16:38 POC Glucose (mg/dL) 179 H 130 H Exam: GENERAL: no acute distress. alert and appropriate with hypophonia, but more understandable. LUNGS: Clear to auscultation bilaterally. HEART: regular rate and rhythm with occasional skipped beat ABDOMEN: Soft, + bowel sound, non-tender, non-distended EXTREMITIES: Mildly increased tone in right UE and LE. No edema. NEUROLOGIC: Dysarthric .5/5 motor in LUE and LLE. 0/5 throughout RUE and RLE except trace hip adduction. Sensation intact x4. Right facial droop. Assessment/Plan: 1. Left CVA with dense right hemiplegia: ASA. 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 2. DM: glipizide/Januvia/SSI. Off metformin for now due to increased creatinine. Cr 1.23. Increased SSI. Started Lantus 3. HTN: Lisinopril 4. Hyperlipidemia: Lipitor 80mg qday 5. Dysphagia: Mechanical soft diet/thin liquids 6. DVT Prophylaxis: Lovenox 7. Renal insufficiency: Increased Cr with lower BUN/Cr ratio. 8. Advance Directives: Full code. 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 Leg spasms: on scheduled baclofen. 10. Nutrition: his brought in some supplements. 11/30/18 17:03
[2018-11-30] MEDS: Enoxaparin(*) 40 MG/0.4 ML SYR SUBCUT SCH (20:45)
[2018-11-30] MEDS: Insulin GLARGINE(*) 1 UNITS UNIT SUBCUT SCH (20:45)
[2018-12-01 05:12] LABS: Potassium 4.6 mmol/L (3.5-5.0)
[2018-12-01 05:18] LABS: BUN/Creatinine Ratio 27.7 (8-20); EGFR African American 77.8 (>60); EGFR Non-African American 64.3 (>60)
[2018-12-01] MEDS: Metoclopramide TAB* 10 MG PO SCH ×3 (08:41→17:46)
[2018-12-01] MEDS: GALLBLADDER FORMULA PO SCH ×4 (08:41→17:47)
[2018-12-01] MEDS: Aspirin EC TAB* 325 MG PO SCH (08:42)
[2018-12-01] MEDS: Baclofen TAB* 10 MG PO SCH ×4 (08:42→21:20)
[2018-12-01] MEDS: [UNRECOGNIZED DRUG - OTHER] PO SCH (08:45)
[2018-12-01] MEDS: [UNRECOGNIZED DRUG - REMARK] PO SCH (08:45)
[2018-12-01] MEDS: Famotidine TAB* 20 MG PO SCH ×2 (08:45→21:17)
[2018-12-01] MEDS: Lisinopril TAB* 10 MG PO SCH (08:46)
[2018-12-01] MEDS: Sertraline* 25 MG TAB PO SCH (08:46)
[2018-12-01] MEDS: CMC:SitaGLIPtin (NF) 100 MG TAB PO SCH (08:46)
[2018-12-01] MEDS: glipiZIDE TAB.XL* 5 MG PO SCH (08:46)
[2018-12-01] MEDS: Lactobacillus Acidophilus* 1 TAB PO SCH (08:46)
[2018-12-01] MEDS: Methocarbamol TAB* 500 MG PO PRN (09:02)
[2018-12-01] MEDS: Insulin LISPRO* 1 UNITS UNIT SUBCUT SCH ×5 (09:02→21:16)
--- NOTE | 2018-12-01 12:53 | PMRUTEAM ---
PMRU: Team Meeting Current Status: Nursing: Current Status Skin Deviations [gluteal cleft Other ] Skin Deviations [Bilateral Other Heel] Skin Deviations [Upper Back] Rash Skin Deviations [Right Arm] Bruise Skin Deviation Description [ small open slit, lotion applied gluteal cleft] T&P in place as pt allows Skin Deviation Description [ sl reddened. Supported spenco boots on Bilateral Heel] Skin Deviation Description [ lotion applied Upper Back] Skin Deviation Description [ unchanged since adm Right Arm] Bladder Current Status used urinal Bowel Current Status bm 11/30/18. colace given this am Nutrition Current Status appetite fair. Medication Current Status takes meds whole with water. Physical Therapy: Current Status Bed Mobility Assistance 2 or More Person Assist Transfer Mobility Assistance 2 or More Person Assist Transfer/Bed Mobility Dorcas Lift Recommended Devices Ambulation Assistance Unable Stairs Assistance Not Tested Manual Wheelchair Control/ Left UE Technique Wheelchair Propulsion Ability Moderate Assistance Wheelchair Distance (ft) 45 Objective Comments cues and instruction to self-propel wheelchair with moderate assistance provided especially for turning due to only being able to propel with LUE Occupational Therapy: Current Status Upper Body Dressing Mod Assist Lower Body Dressing Total Assist,2 Person Assist Bathing Max Asst,2 Person Assist Toileting Total Assist,2 Person Assist Toilet Transfer Total Assist,2 Person Assist Shower Transfer Total Assist,2 Person Assist Eating Supervision Rec Therapy: Current Status Summary of Assessment and Pt. has been open to conversation - oriented, Clinical Impression polite and friendly. Pt. has been enjoying visits from his 2 daughters and grandchildren. Treatment Goals Pt. will continue to engage in leisure while on the unit. Treatment Plan Continue to offer recreation services. Social Work: Current Status Discharge Plan return home with home care svs and family support Potential for Family Training pt's is involved and supportive Anticipated Discharge Home Destination Discharge With home care svs and family support Nutrition: Current Status Monitoring Visited pt. Intake good - eating 100% consistently now and meeting needs. Disliked glucerna shake and asked for it to be d/c. Since intake improved, no longer indicated. Pt requested pattern attendant salad at lunch 11/30 - on mechanical soft texture still. He was fine with changing selection. BM 11/29. Will follow for ability to advance texture. BG/FS 123 - 159 - 219. Lantus started 11/29. Speech: Current Status Assessment Patient demonstrated adequate safety awarenes and ability to drink thin liquids, including hot coffee and 3-oz of cold water by cup, with no clinical s/s aspiration. STUDENT FINANCE ADVISOR consulted provider, and recommended upgrade to thin liquids. Patient demonstrated mildly increased range of motion and ability to adjust for facial symmetry. Patient produced severely aphonic whisper to moderate-severly hoarse modal voice with reduced loudness and pitch range. Speech Current Status Goal 1 Mild impairment Speech Goal 2 Current Status Moderate impairment Speech Goal 3 Current Status Moderate-Severe impairment Goals: Physical Therapy: Initial Goals Bed Mobility Assistance Independent Transfer Mobility Assistance Independent Transfer/Bed Mobility Krishan Walker Recommended Devices Ambulation Independent Ambulation Recommended Devices Krishan Walker Ambulation Distance 5 Wheelchair Propulsion Ability Independent Physical Therapy: Updated Goals Transfer/Bed Mobility Dorcas Lift Recommended Devices Occupational Therapy: Initial Goals Goals to be Completed in (Days 42+ ) Upper Body Bathing Routine Independent Lower Body Bathing Routine Modified Independent with Upper Body Dressing Routine Independent Lower Body Dressing Routine Modified Independent with Toilet Hygeine and Clothing Modified Independent with Management Routine Toilet Transfer Routine Modified Independent with Step-In Shower Transfer Supervision/Set Up Routine Functional Transfers for ADL Modified Independent with Grooming Routine Independent Feeding Routine Independent Nursing: Goals Bladder Goal independent Bowel Goal independent Nutrition Goal 100% of all meals consumed Medication Goal independent Nutrition: Goals Intervention Goals 1. adequate po intake to support hydration, lean body mass and skin integrity w/o add'l wt gain 2. tolerates least-restrictive diet texture without difficulty chewing, swallowing 3. glycemic control within inpatient parameters; no s/sx hypo-hyperglycemia 4. achieves regulation of bowel pattern; no c/o constipation (or diarrhea) 5. no new areas of skin breakdown, and evidence of resolution of gluteal cleft pressure ulcer Speech: Goals Speech Goal 1 Swallowing Speech Evaluation Status Goal Mild-moderate impairment 1 Speech Current Status Goal 1 Mild impairment Goal 1 Comments Long-Term Goal: Patient will I'ly follow precautions to tolerate least restrictive diet consistencies w/ no complications from aspiration. Status: Goals established Short Term Goals: 1) STG: Patient will demonstrate and follow swallowing exercises and compensatory strategies, to tolerate mechanical/ground diet texture and nectar thick liquids, w/ adequate PO intake and no clinical s/s aspiration, Independently 2) STC: Patient will I'ly follow precautions and compensatory strategies, to tolerate thin water between meals and after good oral hygiene, without regard to expected clinical s/s of aspiration, and with no complications from aspiration, Independently 3) STG: Patient will demonstrate and follow swallowing exercises and compensatory strategies, to tolerate regular diet consistency w/ no clinical s/s aspiration, Independently 4) STC: Patient will I'ly follow precautions and compensatory strategies, to tolerate thin liquids with no clinical s/s or complications from aspiration, Independently Status: Progressing as expected. Patient tolerated skilled trials of thin liquids with no clinical s/s aspiration. Patient performed tongue-base retraction exercises: Maggie maneuver and dry swallow with chin raised. Patient performed supraglottic swallow: inhale before and hold breath during hard-fast swallows. Speech Goal 2 Motor Speech Speech Goal 2 Evaluation Moderate impairment Status Speech Goal 2 Current Status Moderate impairment Speech Goal 2 Comments Motor-speech Long-Term Goal: Pt will I'ly speak with 100% intelligibility, Independently Status: Goals established Short-Term Goal 1: Pt will use compensatory strategies to increase speech to intelligibility to 100% in spontaneous conversational speech, given minimal cueing. Short-Term Goal 2: Pt will use compensatory articulation strategies to increase speech to intelligibility to 90% in structured speech activities, given Moderate cueing. Status: Progressing as expected. STUDENT FINANCE ADVISOR provided skilled instruction in isolation exercises to improve range, symmetry and coordination of movement of labiafacial musculature. Given modersate cueing, patient corrected unintelligible speech utterance and produced aticulate speech. Speech Goal 3 Voice Speech Goal 3 Evaluation Moderate-Severe impairment Status Speech Goal 3 Current Status Moderate-Severe impairment Speech Goal 3 Comments Voice Goals: Long-Term Goal: Pt will use compensatory strategies to increase vocal loudness, pitch range and tone quality to mild-moderate impairment, and speech to intelligibility to 95-100%, in spontaneous conversational speech, Independently, as observed by therapists, nursing and medical staff. Status: Goals established. Short-Term Goal: Pt will complete loud voice exercises and use compensatory strategies to increase vocal loudness, pitch range and tone quality to moderate impairment, and speech to intelligibility to 90%, in structured conversational speech, given moderate cueing, as observed by therapists, nursing and medical staff. Status: Progressing as expected. Patient demonstrated the ability to increase volume and control of thoraco-diaphragmatic breathing, and vocal tone by use of facilitation techniques. Patient demonstrated increased loudness, and increased pitch range of 2/3 octave during pitch glide exercises. Social Work: Goals Discharge Plan return home with home care svs and family support Potential for Family Training pt's is involved and supportive Anticipated Discharge Home Destination Discharge With home care svs and family support Care Plan: Care Plan ADL's - Improve/Maintain Start: 11/13/18 07:10 Freq: DAILY Status: Active Target: Protocol: Activity Type Activity Date Activity User E-Sign Co-Sign Detail Recorded Client Recorded Date Recorded By Document 11/19/18 14:36 [id number] 11/19/18 14:36 [id number] 11/19/18 14:36 PMRU Outcome: ADL's/ADL Transfers Orders/Interventions Occupational Therapy Evaluation & Treatment Communication Tool in Patient Room Patient to receive OT 5x/wk for 60-120 Therex min/day Self Care Management Group Therapy UE/LE ADL's with Assist Yes: mod I ADL Transfers with Assist Yes: mod I Toileting: Transfers,Clothing Management Yes: mod I ,Hygeine w/Assist Outcome/Goals Met Pt begun utilizing one handed strategies today for fasteners. He did slightly better with UB dressing. Pt does appear much more depressed and seems more nonchalant than previous sessions. [ End ] Cardiovascular-Improve/Maintain Start: 11/13/18 00:55 Freq: DAILY@0400,1600 Status: Active Target: Protocol: Activity Type Activity Date Activity User E-Sign Co-Sign Detail Recorded Client Recorded Date Recorded By Document 12/01/18 03:23 [id number] [id number] 12/01/18 03:24 [id number] 12/01/18 03:23 Outcome: Cardiovascular Current Cardiovascular Outcome/Goal Maintain/ achieve baseline HR, BP , Perfusion Maintain/ improve perfusion Free of abnormal cardiac symptoms Progression Towards Outcome/Goal Progressing Communication-Improve/Maintain Start: 11/13/18 12:14 Freq: DAILY Status: Active Target: Protocol: Activity Type Activity Date Activity User E-Sign Co-Sign Detail Recorded Client Recorded Date Recorded By Document 11/30/18 23:45 [id number] [email or web address] 11/30/18 23:46 [id number] 11/30/18 23:45 PMRU Outcome: Communication/Cognitive Status Outcome/Goals Makes Needs Known Effectively Progression Toward Outcomes/Goals Progressing Coping/Psych-Improve/Maintain Start: 11/16/18 15:42 Freq: QSHIFT Status: Active Target: Protocol: Activity Type Activity Date Activity User E-Sign Co-Sign Detail Recorded Client Recorded Date Recorded By Document 11/30/18 20:00 [id number] [email or web address] 11/30/18 21:42 [id number] 11/30/18 20:00 PMRU Outcome: Coping/Psychosocial Coping Outcome/Goals Verbalization of Acceptance of Rehab Admit Willingness to Participate in Treatment Plan and Basic Needs Utilization of Available Support Systems Absence of Destructive Behavior to Self/Others Psychosocial Outcome/Goals Maintain/ Improve Emotional Health Demonstrates Knowledge of Healthy Coping Mechanisms Available Cooperate/ Participate in Plan Progression Toward Outcome/Goals - Progressing Coping Progression Toward Outcome/Goals - Progressing Psychosocial DVT Prophylaxis- Improve/Maintain Start: 11/16/18 15:42 Freq: QSHIFT Status: Active Target: Protocol: Activity Type Activity Date Activity User E-Sign Co-Sign Detail Recorded Client Recorded Date Recorded By Document 11/30/18 20:00 [id number] [email or web address] 11/30/18 21:42 [id number] 11/30/18 20:00 PMRU Outcome: DVT Prophylaxis Outcome/Goals Remains Free of DVT Complies with DVT Prophylaxis /Treatment Demonstrates Knowledge of DVT Prevention/ Treatment TEDS Stockings on Every AM, Off at HS Progression Toward Outcome/Goals Progressing Discharge Planning Start: 11/13/18 00:55 Freq: DAILY@0400,1600 Status: Complete Target: Protocol: Activity Type Activity Date Activity User E-Sign Co-Sign Detail Recorded Client Recorded Date Recorded By Document 11/16/18 02:40 [id number] [email or web address] 11/16/18 02:40 [id number] 11/16/18 02:40 Outcome: Discharge Planning Outcome/Goals Demonstrates Understanding of Discharge Plan Necessary Services Arranged for Post Discharge Care Progression Toward Outcome/Goals Progressing Discharge Planning - Improve/Maintain Start: 11/16/18 15:42 Freq: DAILY Status: Active Target: Protocol: Activity Type Activity Date Activity User E-Sign Co-Sign Detail Recorded Client Recorded Date Recorded By Document 11/30/18 23:45 [id number] [email or web address] 11/30/18 23:46 [id number] 11/30/18 23:45 PMRU Outcome: Discharge Planning Update Patient Family No Outcome/Goals Demonstrates Understanding of Discharge Plan Education-Improve/Maintain Start: 11/16/18 15:42 Freq: QSHIFT Status: Active Target: Protocol: Activity Type Activity Date Activity User E-Sign Co-Sign Detail Recorded Client Recorded Date Recorded By Document 11/30/18 20:00 [id number] [email or web address] 11/30/18 21:42 [id number] 11/30/18 20:00 PMRU Outcome: Education Outcome/Goals Demonstrates Skills Encourage Questions Progression Toward Outcome/Goals Progressing Genitourinary-Improve/Maintain Start: 11/13/18 00:55 Freq: DAILY@0400,1600 Status: Complete Target: Protocol: Activity Type Activity Date Activity User E-Sign Co-Sign Detail Recorded Client Recorded Date Recorded By Document 11/16/18 02:40 [id number] [email or web address] 11/16/18 02:40 [id number] 11/16/18 02:40 Outcome: Genitourinary Outcome/Goals Maintain/ Achieve Urinary Continence Maintain/ Achieve Adequate Urinary Output Progression Toward Outcome/Goals Progressing Outcome/Goals Met Comment pt used urinal Medication Administration Start: 11/16/18 15:42 Freq: QSHIFT Status: Active Target: Protocol: Activity Type Activity Date Activity User E-Sign Co-Sign Detail Recorded Client Recorded Date Recorded By Document 11/30/18 20:00 [id number] [email or web address] 11/30/18 21:42 [id number] 11/30/18 20:00 PMRU Outcome: Medication Administration Assess Patient Knowledge/Teach Med Yes Education for all Meds Outcome/Goals Patient Independent with Medication Administration at Home Demonstrates Understanding Progression Towards Outcome/Goals Progressing Is Patient Going Home on Lovenox? No Metabolic Status- Improve/Maintain Start: 11/16/18 15:42 Freq: QSHIFT Status: Active Target: Protocol: Activity Type Activity Date Activity User E-Sign Co-Sign Detail Recorded Client Recorded Date Recorded By Document 11/30/18 20:00 [id number] [email or web address] 11/30/18 21:42 [id number] 11/30/18 20:00 PMRU Outcome: Metabolic Status Have Fingersticks Been Ordered Yes Fingerstick Order Frequency AC & HS Outcome/Goals Maintain/ Improve Metabolic Status Demonstrate Knowledge of Prevention/ Treatment of Metabolic Imbalances Progression Toward Outcome/Goals Progressing Mobility- Improve/Maintain Start: 11/13/18 20:36 Freq: DAILY Status: Active Target: Protocol: Activity Type Activity Date Activity User E-Sign Co-Sign Detail Recorded Client Recorded Date Recorded By Document 11/13/18 20:36 [id number] [email or web address] 11/13/18 20:37 [id number] 11/13/18 20:36 PMRU Outcome: Mobility Physical Therapy Evaluation and Yes Treatment Activity OOB with Assistance Yes WBAT Yes Device Yes Assistance Yes Patient to be seen 5x/wk for 60-120 min/ Therex day for: Mobility Training Gait Training W/C Mobility Balance Other Outcome/Goals Maintain/ Achieve Baseline Mobility Status Improve Mobility Status Demonstrates Proper Use of Assistive Devices Free from Complications of Immobility Bed Mobility Yes: independent Transfers Yes: independent with krishan walker Gait x ft Yes: independent 5 feet with krishan walker W/C Mobility x ft Yes: independnet Neurological- Improve/Maintain Start: 11/16/18 15:42 Freq: QSHIFT Status: Active Target: Protocol: Activity Type Activity Date Activity User E-Sign Co-Sign Detail Recorded Client Recorded Date Recorded By Document 11/30/18 20:00 [id number] 11/30/18 21:42 [id number] 11/30/18 20:00 PMRU Outcome: Neurological Weakness/Aphasia Weakness Right Side Weakness/Aphasia Comment dysarthria, dysphagia. r sided weakness Outcome/Goals Maintain/ Achieve Baseline Neurological Status Improve Neurological Status Prevent Avoidable Neurological Decline Demonstrate Knowledge of Prevention/Tx of Neuro Disorders/ Complication Maintain/ Improve Strength/ROM Progression Toward Outcome/Goals Progressing Nutrition-Improve/Maintain Start: 11/13/18 21:19 Freq: DAILY@0400,1600 Status: Complete Target: Protocol: Activity Type Activity Date Activity User E-Sign Co-Sign Detail Recorded Client Recorded Date Recorded By Document 11/16/18 02:40 [id number] [email or web address] 11/16/18 02:40 [id number] 11/16/18 02:40 Outcome: Nutrition Outcome/Goals Demonstrates Adequate Hydration Progression Toward Outcome/Goals Progressing Outcome/Goals Met Comment pt not eating much Nutrition/Swallowing- Improve/Maintain Start: 11/16/18 15:42 Freq: QSHIFT Status: Active Target: Protocol: Activity Type Activity Date Activity User E-Sign Co-Sign Detail Recorded Client Recorded Date Recorded By Document 11/30/18 20:00 [id number] [email or web address] 11/30/18 21:42 [id number] 11/30/18 20:00 PMRU Outcome: Nutrition/Swallowing Outcome/Goals Demonstrates Adequate Hydration/ Prevents Dehydration Maintain/ Improve Nutritional Status Progression Toward Outcome/Goals Progressing Safety- Improve/Maintain Start: 11/16/18 15:42 Freq: QSHIFT Status: Active Target: Protocol: Activity Type Activity Date Activity User E-Sign Co-Sign Detail Recorded Client Recorded Date Recorded By Document 11/30/18 20:00 [id number] [email or web address] 11/30/18 21:42 [id number] 11/30/18 20:00 PMRU Outcome: Safety Outcome/Goals Remain Free of Injury or Harm Cooperates with Safety Measures for Least Restrictive Environment Prevent Falls/ Injury Progression Toward Outcome/Goals Progressing Skin- Improve/Maintain Start: 11/16/18 15:42 Freq: QSHIFT Status: Active Target: Protocol: Activity Type Activity Date Activity User E-Sign Co-Sign Detail Recorded Client Recorded Date Recorded By Document 11/30/18 20:00 [id number] [email or web address] 11/30/18 21:42 [id number] 11/30/18 20:00 PMRU Outcome: Skin Skin Risk Level High Skin Orders Air Mattress Multipodus Boot Heels Off Bed Turn/Position q2hr While in Bed Outcome/Goals Maintain/ Improve Skin Intergrity Free from Decubitus Progression Toward Outcome/Goals Progressing Medicine Note: Length of Stay: 3 1/2 weeks Anticipated Discharge Destination: Home Tentative Discharge Date: 12/25/18 Discharged to: Home vs SNF
[2018-12-01] MEDS: Atorvastatin* 80 MG TAB PO SCH (17:46)
--- NOTE | 2018-12-01 18:45 | PN ---
Progress Note Date of Service: 12/01/18 Note: KEERTHI LEHMAN was visited. Therapy notes read and reviewed. He was discussed in interdisciplinary team rounds. PT has noted he is stronger and sitting balance is better. However he remains very impaired. Current Medications: Active Medications Generic Name Dose Route Start Last Admin Trade Name Freq PRN Reason Stop Dose Admin Acetaminophen 650 mg 11/12/18 18:05 11/29/18 22:40 Tylenol Tab* PO 650 mg Q6H PRN Administration FEVER/PAIN Al Hydrox/Mg Hydrox/Simethicone 30 ml 11/13/18 13:46 11/13/18 13:57 Maalox Plus* PO 30 ml Q4H PRN Administration DYSPEPSIA Aspirin 325 mg 11/13/18 09:00 12/01/18 08:42 Ecotrin Ec Tab* PO 325 mg DAILY ELROY Administration Atorvastatin Calcium 80 mg 11/12/18 17:00 12/01/18 17:46 Lipitor* PO 80 mg 1700 ELROY Administration Baclofen 5 mg 11/23/18 14:00 12/01/18 15:22 Lioresal Tab* PO 5 mg TID ELROY Administration Bisacodyl 10 mg 11/12/18 14:09 11/17/18 21:08 Dulcolax Supp* [place] 10 mg DAILY PRN Administration CONSTIPATION Dextrose 12.5 gm 11/12/18 14:42 D50w Syringe 50 Ml* IV PUSH .FOR FS < 60 - SS PRN FS < 60 Docusate Sodium 100 mg 11/12/18 19:32 11/30/18 08:32 Colace Cap* PO 100 mg BID PRN Administration CONSTIPATION Enoxaparin Sodium 40 mg 11/12/18 20:30 11/30/18 20:45 Lovenox(*) SUBCUT 40 mg Q24H ELROY Administration Famotidine 20 mg 11/13/18 21:00 12/01/18 08:45 Pepcid Tab* PO 20 mg BID ELROY Administration Glipizide 5 mg 12/01/18 09:00 12/01/18 08:46 Glucotrol Xl* PO 5 mg DAILY ELROY Administration Insulin Glargine 10 units 11/29/18 20:00 11/30/18 20:45 Lantus(*) SUBCUT 10 units Q24H ELROY Administration Insulin Human Lispro 0 - 10 units 11/23/18 21:00 12/01/18 17:55 Humalog* SUBCUT 2 unit ACHS ELROY Administration Protocol Lactobacillus Rhamnosus 1 tab 11/13/18 09:00 12/01/18 08:46 Lactobacillus Acidophilus* PO 1 tab DAILY ELROY Administration Lisinopril 40 mg 11/13/18 09:00 12/01/18 08:46 Prinivil Tab* PO 40 mg DAILY ELROY Administration Loperamide HCl 2 mg 11/12/18 19:31 11/15/18 00:02 Imodium Cap* PO 2 mg .SEE DIRECTIONS PRN Administration DIARRHEA Magnesium Hydroxide 30 ml 11/12/18 14:09 11/30/18 08:32 Milk Of Magnesia Liq* PO 30 ml Q6H PRN Administration CONSTIPATION Methocarbamol 500 mg 11/22/18 09:29 12/01/18 09:02 Robaxin Tab* PO 500 mg QID PRN Administration spasm Metoclopramide HCl 5 mg 11/16/18 07:30 12/01/18 17:46 Reglan Tab* PO 5 mg AC ELROY Administration Pto: (Daily 1 cap 11/22/18 09:30 12/01/18 08:45 Essential Enzymes 1 PO Not Given Cap) DAILY ELROY Pto: (Dr. Vee's D3 1 cap 11/22/18 09:45 12/01/18 08:45 & K2 Vitamin 1 Cap) PO Not Given DAILY ELROY Pto:(Gallbladder 1 cap 11/26/18 07:30 12/01/18 17:47 Formula 1 Cap) PO 1 cap AC ELROY Administration Senna 2 tab 11/12/18 14:09 11/29/18 21:04 Senokot Tab* PO 2 tab BEDTIME PRN Administration CONSTIPATION Sertraline HCl 25 mg 11/14/18 09:00 12/01/18 08:46 Zoloft* PO 25 mg DAILY ELROY Administration Sitagliptin Phosphate 100 mg 11/13/18 09:00 12/01/18 08:46 Januvia (Nf) PO 100 mg DAILY ELROY Administration Vital Signs: Vital Signs Temp Pulse Resp BP Pulse Ox 98.2 F 64 16 119/52 100 12/01/18 16:23 12/01/18 16:23 12/01/18 16:23 12/01/18 16:23 12/01/18 16:23 Lab Results: Laboratory Results - last 24 hr 11/30/18 12/01/18 12/01/18 20:14 04:50 07:31 Sodium 137 Potassium 4.6 Chloride 108 Carbon Dioxide 21 L Anion Gap 8 BUN 31 H Creatinine 1.12 Est GFR ( Amer) 77.8 Est GFR (Non-Af Amer) 64.3 BUN/Creatinine Ratio 27.7 H Glucose 140 H POC Glucose (mg/dL) 124 H 155 H Calcium 10.0 12/01/18 12/01/18 12:09 17:46 Sodium Potassium Chloride Carbon Dioxide Anion Gap BUN Creatinine Est GFR ( Amer) Est GFR (Non-Af Amer) BUN/Creatinine Ratio Glucose POC Glucose (mg/dL) 174 H 193 H Calcium Exam: GENERAL: no acute distress. alert and appropriate with hypophonia, but more understandable. LUNGS: Clear to auscultation bilaterally. HEART: regular rate and rhythm with occasional skipped beat ABDOMEN: Soft, + bowel sound, non-tender, non-distended EXTREMITIES: Mildly increased tone in right UE and LE. No edema. NEUROLOGIC: Dysarthric .5/5 motor in LUE and LLE. 0/5 throughout RUE and RLE except trace hip adduction. Sensation intact x4. Right facial droop. Assessment/Plan: 1. Left CVA with dense right hemiplegia: ASA. 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 2. DM: glipizide/Januvia/SSI. Off metformin for now due to increased creatinine. Cr 1.12. Increased SSI. Started Lantus, but may resume Metformin 3. HTN: Lisinopril 4. Hyperlipidemia: Lipitor 80mg qday 5. Dysphagia: Mechanical soft diet/thin liquids 6. DVT Prophylaxis: Lovenox 7. Renal insufficiency: Cr normalizing 8. Advance Directives: Full code. 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 Leg spasms: on scheduled baclofen. 10. Nutrition: his brought in some supplements. 12/01/18 18:45 12/01/18 18:45
[2018-12-01] MEDS: Insulin GLARGINE(*) 1 UNITS UNIT SUBCUT SCH (21:16)
[2018-12-01] MEDS: Enoxaparin(*) 40 MG/0.4 ML SYR SUBCUT SCH (21:16)
[2018-12-02] MEDS: Aspirin EC TAB* 325 MG PO SCH (08:57)
[2018-12-02] MEDS: Metoclopramide TAB* 10 MG PO SCH ×3 (08:57→16:51)
[2018-12-02] MEDS: Baclofen TAB* 10 MG PO SCH ×3 (08:57→21:37)
[2018-12-02] MEDS: Lactobacillus Acidophilus* 1 TAB PO SCH (08:58)
[2018-12-02] MEDS: Sertraline* 25 MG TAB PO SCH (08:58)
[2018-12-02] MEDS: Lisinopril TAB* 10 MG PO SCH (08:58)
[2018-12-02] MEDS: Famotidine TAB* 20 MG PO SCH ×2 (08:58→21:37)
[2018-12-02] MEDS: glipiZIDE TAB.XL* 5 MG PO SCH (08:58)
[2018-12-02] MEDS: CMC:SitaGLIPtin (NF) 100 MG TAB PO SCH (08:58)
[2018-12-02] MEDS: Insulin LISPRO* 1 UNITS UNIT SUBCUT SCH ×5 (09:10→21:42)
[2018-12-02] MEDS: GALLBLADDER FORMULA PO SCH ×3 (09:10→16:50)
[2018-12-02] MEDS: [UNRECOGNIZED DRUG - OTHER] PO SCH (09:10)
[2018-12-02] MEDS: [UNRECOGNIZED DRUG - REMARK] PO SCH (09:11)
[2018-12-02] MEDS: Atorvastatin* 80 MG TAB PO SCH (16:51)
--- NOTE | 2018-12-02 19:03 | PN ---
Progress Note Date of Service: 12/02/18 Note: KEERTHI LEHMAN was visited. Therapy notes read and reviewed. In good spirits but functional progress has been slow in coming. Will meet with tomorrow Current Medications: Active Medications Generic Name Dose Route Start Last Admin Trade Name Freq PRN Reason Stop Dose Admin Acetaminophen 650 mg 11/12/18 18:05 11/29/18 22:40 Tylenol Tab* PO 650 mg Q6H PRN Administration FEVER/PAIN Al Hydrox/Mg Hydrox/Simethicone 30 ml 11/13/18 13:46 11/13/18 13:57 Maalox Plus* PO 30 ml Q4H PRN Administration DYSPEPSIA Aspirin 325 mg 11/13/18 09:00 12/02/18 08:57 Ecotrin Ec Tab* PO 325 mg DAILY ELROY Administration Atorvastatin Calcium 80 mg 11/12/18 17:00 12/02/18 16:51 Lipitor* PO 80 mg 1700 ELROY Administration Baclofen 5 mg 11/23/18 14:00 12/02/18 13:42 Lioresal Tab* PO 5 mg TID ELROY Administration Bisacodyl 10 mg 11/12/18 14:09 11/17/18 21:08 Dulcolax Supp* [place] 10 mg DAILY PRN Administration CONSTIPATION Dextrose 12.5 gm 11/12/18 14:42 D50w Syringe 50 Ml* IV PUSH .FOR FS < 60 - SS PRN FS < 60 Docusate Sodium 100 mg 11/12/18 19:32 11/30/18 08:32 Colace Cap* PO 100 mg BID PRN Administration CONSTIPATION Enoxaparin Sodium 40 mg 11/12/18 20:30 12/01/18 21:16 Lovenox(*) SUBCUT 40 mg Q24H ELROY Administration Famotidine 20 mg 11/13/18 21:00 12/02/18 08:58 Pepcid Tab* PO 20 mg BID ELROY Administration Glipizide 5 mg 12/01/18 09:00 12/02/18 08:58 Glucotrol Xl* PO 5 mg DAILY ELROY Administration Insulin Glargine 10 units 11/29/18 20:00 12/01/18 21:16 Lantus(*) SUBCUT 10 units Q24H ELROY Administration Insulin Human Lispro 0 - 10 units 11/23/18 21:00 12/02/18 16:52 Humalog* SUBCUT 1 unit ACHS ELROY Administration Protocol Lactobacillus Rhamnosus 1 tab 11/13/18 09:00 12/02/18 08:58 Lactobacillus Acidophilus* PO 1 tab DAILY ELROY Administration Lisinopril 40 mg 11/13/18 09:00 12/02/18 08:58 Prinivil Tab* PO 40 mg DAILY ELROY Administration Loperamide HCl 2 mg 11/12/18 19:31 11/15/18 00:02 Imodium Cap* PO 2 mg .SEE DIRECTIONS PRN Administration DIARRHEA Magnesium Hydroxide 30 ml 11/12/18 14:09 11/30/18 08:32 Milk Of Magnesia Liq* PO 30 ml Q6H PRN Administration CONSTIPATION Methocarbamol 500 mg 11/22/18 09:29 12/01/18 09:02 Robaxin Tab* PO 500 mg QID PRN Administration spasm Metoclopramide HCl 5 mg 11/16/18 07:30 12/02/18 16:51 Reglan Tab* PO 5 mg AC ELROY Administration Pto: (Daily 1 cap 11/22/18 09:30 12/02/18 09:10 Essential Enzymes 1 PO Not Given Cap) DAILY ELROY Pto: (Dr. Vee's D3 1 cap 11/22/18 09:45 12/02/18 09:11 & K2 Vitamin 1 Cap) PO Not Given DAILY ELROY Pto:(Gallbladder 1 cap 11/26/18 07:30 12/02/18 16:50 Formula 1 Cap) PO 1 cap AC ELROY Administration Senna 2 tab 11/12/18 14:09 11/29/18 21:04 Senokot Tab* PO 2 tab BEDTIME PRN Administration CONSTIPATION Sertraline HCl 25 mg 11/14/18 09:00 12/02/18 08:58 Zoloft* PO 25 mg DAILY ELROY Administration Sitagliptin Phosphate 100 mg 11/13/18 09:00 12/02/18 08:58 Januvia (Nf) PO 100 mg DAILY ELROY Administration Vital Signs: Vital Signs Temp Pulse Resp BP Pulse Ox 97.6 F 59 16 114/59 96 12/02/18 14:53 12/02/18 14:53 12/02/18 14:53 12/02/18 14:53 12/02/18 18:41 Lab Results: Laboratory Results - last 24 hr 0412/02/18 12/02/18 21:06 07:21 12:08 POC Glucose (mg/dL) 228 H 147 H 149 H 12/02/18 15:55 POC Glucose (mg/dL) 134 H Exam: GENERAL: no acute distress. alert and appropriate with hypophonia, but more understandable. LUNGS: Clear to auscultation bilaterally. HEART: regular rate and rhythm with occasional skipped beat ABDOMEN: Soft, + bowel sound, non-tender, non-distended EXTREMITIES: Mildly increased tone in right UE and LE. No edema. NEUROLOGIC: Dysarthric .5/5 motor in LUE and LLE. 0/5 throughout RUE and RLE except trace hip adduction. Sensation intact x4. Right facial droop. Assessment/Plan: 1. Left CVA with dense right hemiplegia: ASA. 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 2. DM: glipizide/Januvia/SSI. Off metformin for now due to increased creatinine. Cr 1.12. Increased SSI. Increse Lantus, but may resume Metformin 3. HTN: Lisinopril 4. Hyperlipidemia: Lipitor 80mg qday 5. Dysphagia: Mechanical soft diet/thin liquids 6. DVT Prophylaxis: Lovenox 7. Renal insufficiency: Cr normalizing 8. Advance Directives: Full code. 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 Leg spasms: on scheduled baclofen. 10. Nutrition: his brought in some supplements. 12/02/18 19:04 12/02/18 19:04
[2018-12-02] MEDS: Enoxaparin(*) 40 MG/0.4 ML SYR SUBCUT SCH (21:39)
[2018-12-02] MEDS: Insulin GLARGINE(*) 1 UNITS UNIT SUBCUT SCH (21:40)
[2018-12-03] MEDS: Acetaminophen TAB* 325 MG PO PRN (02:45)
[2018-12-03] MEDS: Insulin LISPRO* 1 UNITS UNIT SUBCUT SCH ×4 (08:56→20:52)
[2018-12-03] MEDS: Metoclopramide TAB* 10 MG PO SCH ×3 (08:57→17:46)
[2018-12-03] MEDS: Aspirin EC TAB* 325 MG PO SCH (08:57)
[2018-12-03] MEDS: Baclofen TAB* 10 MG PO SCH ×3 (08:58→20:56)
[2018-12-03] MEDS: Lactobacillus Acidophilus* 1 TAB PO SCH (08:59)
[2018-12-03] MEDS: Famotidine TAB* 20 MG PO SCH ×2 (08:59→20:55)
[2018-12-03] MEDS: Lisinopril TAB* 10 MG PO SCH (08:59)
[2018-12-03] MEDS: glipiZIDE TAB.XL* 5 MG PO SCH (08:59)
[2018-12-03] MEDS: CMC:SitaGLIPtin (NF) 100 MG TAB PO SCH (09:00)
[2018-12-03] MEDS: Sertraline* 25 MG TAB PO SCH (09:00)
[2018-12-03] MEDS: GALLBLADDER FORMULA PO SCH ×3 (09:16→18:13)
[2018-12-03] MEDS: [UNRECOGNIZED DRUG - REMARK] PO SCH (09:16)
[2018-12-03] MEDS: [UNRECOGNIZED DRUG - OTHER] PO SCH (09:16)
[2018-12-03] MEDS: Bisacodyl SUPP* 10 MG SUPP PR PRN (16:30)
[2018-12-03] MEDS: Atorvastatin* 80 MG TAB PO SCH (17:46)
[2018-12-03] MEDS: Insulin GLARGINE(*) 1 UNITS UNIT SUBCUT SCH (20:56)
[2018-12-03] MEDS: Enoxaparin(*) 40 MG/0.4 ML SYR SUBCUT SCH (20:56)
--- NOTE | 2018-12-03 21:53 | PN ---
Progress Note Date of Service: 12/03/18 Note: KEERTHI LEHMAN was visited. Therapy notes read and reviewed. A meeting was held with his and daughter regarding his post discharge needs. Based on the fact that he has had very little return and functional improvement in the 16 days he has been here, it was explained that by his estimated discharge date he would still need quite a bit of help. Discharge options were presented to the family. They were understandably upset with the severity of the stroke and the probable need for subacute rehab. They did not take the news well, and this only upset Solo more. Options in their area including Nitrous.IO and Pidgon were given to the family. Current Medications: Active Medications Generic Name Dose Route Start Last Admin Trade Name Freq PRN Reason Stop Dose Admin Acetaminophen 650 mg 11/12/18 18:05 12/03/18 02:45 Tylenol Tab* PO 650 mg Q6H PRN Administration FEVER/PAIN Al Hydrox/Mg Hydrox/Simethicone 30 ml 11/13/18 13:46 11/13/18 13:57 Maalox Plus* PO 30 ml Q4H PRN Administration DYSPEPSIA Aspirin 325 mg 11/13/18 09:00 12/03/18 08:57 Ecotrin Ec Tab* PO 325 mg DAILY ELROY Administration Atorvastatin Calcium 80 mg 11/12/18 17:00 12/03/18 17:46 Lipitor* PO 80 mg 1700 ELROY Administration Baclofen 5 mg 11/23/18 14:00 12/03/18 20:56 Lioresal Tab* PO 5 mg TID ELROY Administration Bisacodyl 10 mg 11/12/18 14:09 12/03/18 16:30 Dulcolax Supp* [place] 10 mg DAILY PRN Administration CONSTIPATION Dextrose 12.5 gm 11/12/18 14:42 D50w Syringe 50 Ml* IV PUSH .FOR FS < 60 - SS PRN FS < 60 Docusate Sodium 100 mg 11/12/18 19:32 11/30/18 08:32 Colace Cap* PO 100 mg BID PRN Administration CONSTIPATION Enoxaparin Sodium 40 mg 11/12/18 20:30 12/03/18 20:56 Lovenox(*) SUBCUT 40 mg Q24H ELROY Administration Famotidine 20 mg 11/13/18 21:00 12/03/18 20:55 Pepcid Tab* PO 20 mg BID ELROY Administration Glipizide 5 mg 12/01/18 09:00 12/03/18 08:59 Glucotrol Xl* PO 5 mg DAILY ELROY Administration Insulin Glargine 14 units 12/02/18 20:00 12/03/18 20:56 Lantus(*) SUBCUT 14 units Q24H ELROY Administration Insulin Human Lispro 0 - 10 units 11/23/18 21:00 12/03/18 20:52 Humalog* SUBCUT Not Given ACHS ELROY Protocol Lactobacillus Rhamnosus 1 tab 11/13/18 09:00 12/03/18 08:59 Lactobacillus Acidophilus* PO 1 tab DAILY ELROY Administration Lisinopril 40 mg 11/13/18 09:00 12/03/18 08:59 Prinivil Tab* PO 40 mg DAILY ELROY Administration Loperamide HCl 2 mg 11/12/18 19:31 11/15/18 00:02 Imodium Cap* PO 2 mg .SEE DIRECTIONS PRN Administration DIARRHEA Magnesium Hydroxide 30 ml 11/12/18 14:09 11/30/18 08:32 Milk Of Magnesia Liq* PO 30 ml Q6H PRN Administration CONSTIPATION Methocarbamol 500 mg 11/22/18 09:29 12/01/18 09:02 Robaxin Tab* PO 500 mg QID PRN Administration spasm Metoclopramide HCl 5 mg 11/16/18 07:30 12/03/18 17:46 Reglan Tab* PO 5 mg AC ELROY Administration Pto: (Daily 1 cap 11/22/18 09:30 12/03/18 09:16 Essential Enzymes 1 PO Not Given Cap) DAILY ELROY Pto: (Dr. Poole D3 1 cap 11/22/18 09:45 12/03/18 09:16 & K2 Vitamin 1 Cap) PO Not Given DAILY ELROY Pto:(Gallbladder 1 cap 11/26/18 07:30 12/03/18 18:13 Formula 1 Cap) PO Not Given AC ELROY Senna 2 tab 11/12/18 14:09 11/29/18 21:04 Senokot Tab* PO 2 tab BEDTIME PRN Administration CONSTIPATION Sertraline HCl 25 mg 11/14/18 09:00 12/03/18 09:00 Zoloft* PO 25 mg DAILY ELROY Administration Sitagliptin Phosphate 100 mg 11/13/18 09:00 12/03/18 09:00 Januvia (Nf) PO 100 mg DAILY ELROY Administration Vital Signs: Vital Signs Temp Pulse Resp BP Pulse Ox 97.5 F 61 16 140/58 99 12/03/18 05:03 12/03/18 05:03 12/03/18 05:03 12/03/18 05:03 12/03/18 05:03 Lab Results: Laboratory Results - last 24 hr 12/03/18 12/03/18 12/03/18 07:44 12:00 17:26 POC Glucose (mg/dL) 137 H 167 H 113 H 12/03/18 20:19 POC Glucose (mg/dL) 108 H Exam: GENERAL: no acute distress. alert and appropriate with hypophonia, but more understandable. LUNGS: Clear to auscultation bilaterally. HEART: regular rate and rhythm with occasional skipped beat ABDOMEN: Soft, + bowel sound, non-tender, non-distended EXTREMITIES: Mildly increased tone in right UE and LE. No edema. NEUROLOGIC: Dysarthric .5/5 motor in LUE and LLE. 0/5 throughout RUE and RLE except trace hip adduction. Sensation intact x4. Right facial droop. Assessment/Plan: 1. Left CVA with dense right hemiplegia: ASA. 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 2. DM: glipizide/Januvia/SSI. Off metformin for now due to increased creatinine. Cr 1.12. Increased SSI. Increse Lantus, but may resume Metformin 3. HTN: Lisinopril 4. Hyperlipidemia: Lipitor 80mg qday 5. Dysphagia: Mechanical soft diet/thin liquids 6. DVT Prophylaxis: Lovenox 7. Renal insufficiency: Cr normalizing 8. Advance Directives: Full code. 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 Leg spasms: on scheduled baclofen. 10. Nutrition: his brought in some supplements. 12/03/18 21:54
[2018-12-04] MEDS: Methocarbamol TAB* 500 MG PO PRN
[2018-12-04] MEDS: Metoclopramide TAB* 10 MG PO SCH ×3 (07:32→16:44)
[2018-12-04] MEDS: Insulin LISPRO* 1 UNITS UNIT SUBCUT SCH ×4 (07:32→21:10)
[2018-12-04] MEDS: GALLBLADDER FORMULA PO SCH ×3 (07:32→16:41)
[2018-12-04] MEDS: Famotidine TAB* 20 MG PO SCH ×2 (08:37→21:26)
[2018-12-04] MEDS: CMC:SitaGLIPtin (NF) 100 MG TAB PO SCH (08:38)
[2018-12-04] MEDS: Aspirin EC TAB* 325 MG PO SCH (08:38)
[2018-12-04] MEDS: Lisinopril TAB* 10 MG PO SCH (08:38)
[2018-12-04] MEDS: Baclofen TAB* 10 MG PO SCH ×3 (08:38→21:26)
[2018-12-04] MEDS: Lactobacillus Acidophilus* 1 TAB PO SCH (08:39)
[2018-12-04] MEDS: glipiZIDE TAB.XL* 5 MG PO SCH (08:39)
[2018-12-04] MEDS: Sertraline* 25 MG TAB PO SCH (08:39)
[2018-12-04] MEDS: [UNRECOGNIZED DRUG - REMARK] PO SCH (08:40)
[2018-12-04] MEDS: [UNRECOGNIZED DRUG - OTHER] PO SCH (08:40)
[2018-12-04 12:08] LABS: CO2 Carbon Dioxide 16 mmol/L (22-32); Calcium 10.1 mg/dL (8.6-10.3); Chloride 106 mmol/L (101-111); Sodium 135 mmol/L (135-145)
[2018-12-04 12:14] LABS: ALT 32 U/L (7-52); Albumin/Globulin Ratio 1.5 (1-3); Alkaline Phosphatase 74 U/L (34-104); Blood Urea Nitrogen 27 mg/dL (6-24); EGFR African American 81.1 (>60); Globulin 2.7 g/dL (2-4); Glucose 149 mg/dL (70-100); Total Protein 6.7 g/dL (6.4-8.9)
[2018-12-04 12:15] LABS: Anion Gap 13 mmol/L (2-11)
--- NOTE | 2018-12-04 13:57 | PN ---
Progress Note Date of Service: 12/04/18 Note: KEERTHI LEHMAN was visited. Nursing and therapy notes read and reviewed. His mood is "fair" after yesterday's meeting. No chest pain, shortness of breath or abdominal pain. Difficult time getting blood for labs this morning. Small chemistry sample hemolyzed. Current Medications: Active Medications Generic Name Dose Route Start Last Admin Trade Name Freq PRN Reason Stop Dose Admin Acetaminophen 650 mg 11/12/18 18:05 12/03/18 02:45 Tylenol Tab* PO 650 mg Q6H PRN Administration FEVER/PAIN Al Hydrox/Mg Hydrox/Simethicone 30 ml 11/13/18 13:46 11/13/18 13:57 Maalox Plus* PO 30 ml Q4H PRN Administration DYSPEPSIA Aspirin 325 mg 11/13/18 09:00 12/04/18 08:38 Ecotrin Ec Tab* PO 325 mg DAILY ELROY Administration Atorvastatin Calcium 80 mg 11/12/18 17:00 12/03/18 17:46 Lipitor* PO 80 mg 1700 ELROY Administration Baclofen 5 mg 11/23/18 14:00 12/04/18 13:48 Lioresal Tab* PO 5 mg TID ELROY Administration Bisacodyl 10 mg 11/12/18 14:09 12/03/18 16:30 Dulcolax Supp* [place] 10 mg DAILY PRN Administration CONSTIPATION Dextrose 12.5 gm 11/12/18 14:42 D50w Syringe 50 Ml* IV PUSH .FOR FS < 60 - SS PRN FS < 60 Docusate Sodium 100 mg 11/12/18 19:32 11/30/18 08:32 Colace Cap* PO 100 mg BID PRN Administration CONSTIPATION Enoxaparin Sodium 40 mg 11/12/18 20:30 12/03/18 20:56 Lovenox(*) SUBCUT 40 mg Q24H ELROY Administration Famotidine 20 mg 11/13/18 21:00 12/04/18 08:37 Pepcid Tab* PO 20 mg BID ELROY Administration Glipizide 5 mg 12/01/18 09:00 12/04/18 08:39 Glucotrol Xl* PO 5 mg DAILY ELROY Administration Insulin Glargine 20 units 12/04/18 20:00 Lantus(*) SUBCUT Q24H ELROY Insulin Human Lispro 0 - 10 units 11/23/18 21:00 12/04/18 12:18 Humalog* SUBCUT 2 unit ACHS ELROY Administration Protocol Lactobacillus Rhamnosus 1 tab 11/13/18 09:00 12/04/18 08:39 Lactobacillus Acidophilus* PO 1 tab DAILY ELROY Administration Lisinopril 40 mg 11/13/18 09:00 12/04/18 08:38 Prinivil Tab* PO 40 mg DAILY ELROY Administration Loperamide HCl 2 mg 11/12/18 19:31 11/15/18 00:02 Imodium Cap* PO 2 mg .SEE DIRECTIONS PRN Administration DIARRHEA Magnesium Hydroxide 30 ml 11/12/18 14:09 11/30/18 08:32 Milk Of Magnesia Liq* PO 30 ml Q6H PRN Administration CONSTIPATION Methocarbamol 500 mg 11/22/18 09:29 12/04/18 00:00 Robaxin Tab* PO 500 mg QID PRN Administration spasm Metoclopramide HCl 5 mg 11/16/18 07:30 12/04/18 12:21 Reglan Tab* PO 5 mg AC ELROY Administration Pto: (Daily 1 cap 11/22/18 09:30 12/04/18 08:40 Essential Enzymes 1 PO Not Given Cap) DAILY ELROY Pto: (Dr. Vee's D3 1 cap 11/22/18 09:45 12/04/18 08:40 & K2 Vitamin 1 Cap) PO Not Given DAILY ELROY Pto:(Gallbladder 1 cap 11/26/18 07:30 12/04/18 11:45 Formula 1 Cap) PO Not Given AC ELROY Senna 2 tab 11/12/18 14:09 11/29/18 21:04 Senokot Tab* PO 2 tab BEDTIME PRN Administration CONSTIPATION Sertraline HCl 25 mg 11/14/18 09:00 12/04/18 08:39 Zoloft* PO 25 mg DAILY ELROY Administration Sitagliptin Phosphate 100 mg 11/13/18 09:00 12/04/18 08:38 Januvia (Nf) PO 100 mg DAILY ELROY Administration Vital Signs: Vital Signs Temp Pulse Resp BP Pulse Ox 97.5 F 60 16 130/63 97 12/04/18 05:39 12/04/18 05:39 12/04/18 05:39 12/04/18 05:39 12/04/18 05:39 Lab Results: Laboratory Results - last 24 hr 12/03/18 12/03/18 12/04/18 17:26 20:19 07:31 Sodium Potassium Chloride Carbon Dioxide Anion Gap BUN Creatinine Est GFR ( Amer) Est GFR (Non-Af Amer) BUN/Creatinine Ratio Glucose POC Glucose (mg/dL) 113 H 108 H 112 H Calcium Total Bilirubin AST ALT Alkaline Phosphatase Total Protein Albumin Globulin Albumin/Globulin Ratio 12/04/18 12/04/18 10:51 11:44 Sodium 135 Potassium TNP Chloride 106 Carbon Dioxide 16 L Anion Gap 13 H BUN 27 H Creatinine 1.08 Est GFR ( Amer) 81.1 Est GFR (Non-Af Amer) 67.0 BUN/Creatinine Ratio 25.0 H Glucose 149 H POC Glucose (mg/dL) 151 H Calcium 10.1 Total Bilirubin 0.40 AST TNP ALT 32 Alkaline Phosphatase 74 Total Protein 6.7 Albumin 4.0 Globulin 2.7 Albumin/Globulin Ratio 1.5 Exam: GENERAL: no acute distress. alert and appropriate with hypophonia. LUNGS: Clear to auscultation bilaterally. HEART: regular rate and rhythm with occasional skipped beat ABDOMEN: Soft, + bowel sounds, non-tender, non-distended EXTREMITIES: Mildly increased tone in right UE and LE. No edema. NEUROLOGIC: Dysarthric. 5/5 motor in LUE and LLE. 0/5 throughout RUE and RLE except trace hip adduction. Sensation intact x4. Right facial droop. Assessment/Plan: 1. Left CVA with dense right hemiplegia: ASA. 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 2. DM: glipizide/Januvia/SSI/lantus. Off metformin for now due to increased creatinine which has since normalized. Consider resume Metformin 3. HTN: Lisinopril 4. Hyperlipidemia: Lipitor 80mg qday 5. Dysphagia: Mechanical soft diet/thin liquids 6. DVT Prophylaxis: Lovenox 7. Renal insufficiency: resolved 8. Advance Directives: Full code. 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 Leg spasms: on scheduled baclofen and prn robaxin 10. Nutrition: his brought in some supplements. 11. Depression: increase zoloft 12/04/18 13:55
[2018-12-04] MEDS: Atorvastatin* 80 MG TAB PO SCH (16:44)
[2018-12-04] MEDS: Enoxaparin(*) 40 MG/0.4 ML SYR SUBCUT SCH (21:28)
[2018-12-04] MEDS: Insulin GLARGINE(*) 1 UNITS UNIT SUBCUT SCH (21:29)
[2018-12-05] MEDS: Acetaminophen TAB* 325 MG PO PRN ×3 (01:00→18:20)
[2018-12-05 05:18] LABS: Hematocrit 40 % (36-46); Hemoglobin 13.1 g/dL (14.0-18.0); Mean Corpuscular HGB Conc 33 g/dL (31-36); Mean Corpuscular Hemoglobin 30 pg (27-31); Mean Corpuscular Volume 90 fL (80-94); Mean Platelet Volume 9.2 fL (7.4-10.4); Platelet Count 214 10^3/uL (150-450); Red Blood Count 4.41 10^6 /uL (4.18-5.48); Red Cell Distribution Width 14 % (10.5-15); White Blood Count 6.2 10^3/uL (3.5-10.8)
[2018-12-05 05:29] LABS: ABS Basophils 0.1 10^3/ul (0-0.2); ABS Eosinophils 0.4 10^3/ul (0-0.6); ABS Lymphocytes 1.5 10^3/ul (1.0-4.8); ABS Monocytes 0.8 10^3/ul (0-0.8); ABS Neutrophils 3.4 10^3/ul (1.5-7.7); ABS Nucleated RBC 0 10^3/ul; Lymphocyte % 24.2 %; Nucleated Red Blood Cells % 0.1
[2018-12-05 06:33] LABS: Potassium Redraw 4.5 mmol/L (3.5-5.0)
[2018-12-05] MEDS: [UNRECOGNIZED DRUG - REMARK] PO SCH (07:05)
[2018-12-05] MEDS: GALLBLADDER FORMULA PO SCH ×3 (07:05→18:12)
[2018-12-05] MEDS: [UNRECOGNIZED DRUG - OTHER] PO SCH (07:05)
[2018-12-05] MEDS: Metoclopramide TAB* 10 MG PO SCH ×3 (07:30→18:19)
[2018-12-05] MEDS: Insulin LISPRO* 1 UNITS UNIT SUBCUT SCH ×4 (08:34→21:22)
[2018-12-05] MEDS: Lactobacillus Acidophilus* 1 TAB PO SCH (09:54)
[2018-12-05] MEDS: Baclofen TAB* 10 MG PO SCH ×3 (09:54→19:52)
[2018-12-05] MEDS: Aspirin EC TAB* 325 MG PO SCH (09:54)
[2018-12-05] MEDS: glipiZIDE TAB.XL* 5 MG PO SCH (09:54)
[2018-12-05] MEDS: Famotidine TAB* 20 MG PO SCH ×2 (09:55→20:23)
[2018-12-05] MEDS: Lisinopril TAB* 10 MG PO SCH (09:55)
[2018-12-05] MEDS: CMC:SitaGLIPtin (NF) 100 MG TAB PO SCH (09:55)
[2018-12-05] MEDS: Sertraline* 50 MG TAB PO SCH (09:55)
--- NOTE | 2018-12-05 10:33 | PN ---
Progress Note Date of Service: 12/05/18 Note: KEERTHI LEHMAN was visited. Nursing and therapy notes read and reviewed. No chest pain, shortness of breath or abdominal pain. Mood a little better today. Current Medications: Active Medications Generic Name Dose Route Start Last Admin Trade Name Freq PRN Reason Stop Dose Admin Acetaminophen 650 mg 11/12/18 18:05 12/05/18 01:00 Tylenol Tab* PO 650 mg Q6H PRN Administration FEVER/PAIN Al Hydrox/Mg Hydrox/Simethicone 30 ml 11/13/18 13:46 11/13/18 13:57 Maalox Plus* PO 30 ml Q4H PRN Administration DYSPEPSIA Aspirin 325 mg 11/13/18 09:00 12/05/18 09:54 Ecotrin Ec Tab* PO 325 mg DAILY ELROY Administration Atorvastatin Calcium 80 mg 11/12/18 17:00 12/04/18 16:44 Lipitor* PO 80 mg 1700 ELROY Administration Baclofen 5 mg 11/23/18 14:00 12/05/18 09:54 Lioresal Tab* PO 5 mg TID ELROY Administration Bisacodyl 10 mg 11/12/18 14:09 12/03/18 16:30 Dulcolax Supp* [place] 10 mg DAILY PRN Administration CONSTIPATION Dextrose 12.5 gm 11/12/18 14:42 D50w Syringe 50 Ml* IV PUSH .FOR FS < 60 - SS PRN FS < 60 Docusate Sodium 100 mg 11/12/18 19:32 11/30/18 08:32 Colace Cap* PO 100 mg BID PRN Administration CONSTIPATION Enoxaparin Sodium 40 mg 11/12/18 20:30 12/04/18 21:28 Lovenox(*) SUBCUT 40 mg Q24H ELROY Administration Famotidine 20 mg 11/13/18 21:00 12/05/18 09:55 Pepcid Tab* PO 20 mg BID ELROY Administration Glipizide 5 mg 12/01/18 09:00 12/05/18 09:54 Glucotrol Xl* PO 5 mg DAILY ELROY Administration Insulin Glargine 20 units 12/04/18 20:00 12/04/18 21:29 Lantus(*) SUBCUT 20 units Q24H ELROY Administration Insulin Human Lispro 0 - 10 units 11/23/18 21:00 12/05/18 08:34 Humalog* SUBCUT Not Given ACHS ELROY Protocol Lactobacillus Rhamnosus 1 tab 11/13/18 09:00 12/05/18 09:54 Lactobacillus Acidophilus* PO 1 tab DAILY ELROY Administration Lisinopril 40 mg 11/13/18 09:00 12/05/18 09:55 Prinivil Tab* PO 40 mg DAILY ELROY Administration Loperamide HCl 2 mg 11/12/18 19:31 11/15/18 00:02 Imodium Cap* PO 2 mg .SEE DIRECTIONS PRN Administration DIARRHEA Magnesium Hydroxide 30 ml 11/12/18 14:09 11/30/18 08:32 Milk Of Magnesia Liq* PO 30 ml Q6H PRN Administration CONSTIPATION Methocarbamol 500 mg 11/22/18 09:29 12/04/18 00:00 Robaxin Tab* PO 500 mg QID PRN Administration spasm Metoclopramide HCl 5 mg 11/16/18 07:30 12/04/18 16:44 Reglan Tab* PO 5 mg AC ELROY Administration Pto: (Daily 1 cap 11/22/18 09:30 12/05/18 07:05 Essential Enzymes 1 PO Not Given Cap) DAILY ELROY Pto: (Dr. Vee's D3 1 cap 11/22/18 09:45 12/05/18 07:05 & K2 Vitamin 1 Cap) PO Not Given DAILY ELROY Pto:(Gallbladder 1 cap 11/26/18 07:30 12/05/18 07:05 Formula 1 Cap) PO Not Given AC ELROY Senna 2 tab 11/12/18 14:09 11/29/18 21:04 Senokot Tab* PO 2 tab BEDTIME PRN Administration CONSTIPATION Sertraline HCl 50 mg 12/05/18 09:00 12/05/18 09:55 Zoloft* PO 50 mg DAILY ELROY Administration Sitagliptin Phosphate 100 mg 11/13/18 09:00 12/05/18 09:55 Januvia (Nf) PO 100 mg DAILY ELROY Administration Vital Signs: Vital Signs Temp Pulse Resp BP Pulse Ox 97.7 F 50 18 125/60 96 12/05/18 05:32 12/05/18 05:32 12/05/18 05:32 12/05/18 05:32 12/05/18 05:32 Lab Results: Laboratory Results - last 24 hr 12/04/18 12/04/1812/04/19 10:51 11:44 16:44 WBC RBC Hgb Hct MCV MCH MCHC RDW Plt Count MPV Neut % (Auto) Lymph % (Auto) [place] % (Auto) Eos % (Auto) Baso % (Auto) Absolute Neuts (auto) Absolute Lymphs (auto) Absolute Monos (auto) Absolute Eos (auto) Absolute Basos (auto) Absolute Nucleated RBC Nucleated RBC % Sodium 135 Potassium TNP Chloride 106 Carbon Dioxide 16 L Anion Gap 13 H BUN 27 H Creatinine 1.08 Est GFR ( Amer) 81.1 Est GFR (Non-Af Amer) 67.0 BUN/Creatinine Ratio 25.0 H Glucose 149 H POC Glucose (mg/dL) 151 H 132 H Calcium 10.1 Total Bilirubin 0.40 AST TNP ALT 32 Alkaline Phosphatase 74 Total Protein 6.7 Albumin 4.0 Globulin 2.7 Albumin/Globulin Ratio 1.5 12/04/18 12/05/18 12/05/18 21:07 04:59 05:02 WBC 6.2 RBC 4.41 Hgb 13.1 L Hct 40 MCV 90 MCH 30 MCHC 33 RDW 14 Plt Count 214 MPV 9.2 Neut % (Auto) 54.8 Lymph % (Auto) 24.2 [place] % (Auto) 13.2 Eos % (Auto) 6.0 Baso % (Auto) 1.8 Absolute Neuts (auto) 3.4 Absolute Lymphs (auto) 1.5 Absolute Monos (auto) 0.8 Absolute Eos (auto) 0.4 Absolute Basos (auto) 0.1 Absolute Nucleated RBC 0 Nucleated RBC % 0.1 Sodium Potassium 4.5 Chloride Carbon Dioxide Anion Gap BUN Creatinine Est GFR ( Amer) Est GFR (Non-Af Amer) BUN/Creatinine Ratio Glucose POC Glucose (mg/dL) 122 H Calcium Total Bilirubin AST 16 ALT Alkaline Phosphatase Total Protein Albumin Globulin Albumin/Globulin Ratio 12/05/18 07:48 WBC RBC Hgb Hct MCV MCH MCHC RDW Plt Count MPV Neut % (Auto) Lymph % (Auto) [place] % (Auto) Eos % (Auto) Baso % (Auto) Absolute Neuts (auto) Absolute Lymphs (auto) Absolute Monos (auto) Absolute Eos (auto) Absolute Basos (auto) Absolute Nucleated RBC Nucleated RBC % Sodium Potassium Chloride Carbon Dioxide Anion Gap BUN Creatinine Est GFR ( Amer) Est GFR (Non-Af Amer) BUN/Creatinine Ratio Glucose POC Glucose (mg/dL) 133 H Calcium Total Bilirubin AST ALT Alkaline Phosphatase Total Protein Albumin Globulin Albumin/Globulin Ratio Exam: GENERAL: no acute distress. alert and appropriate with hypophonia. LUNGS: Clear to auscultation bilaterally. HEART: regular rate and rhythm with occasional skipped beat ABDOMEN: Soft, + bowel sounds, non-tender, non-distended EXTREMITIES: Mildly increased tone in right UE and LE. No edema. NEUROLOGIC: Dysarthric. 5/5 motor in LUE and LLE. 0/5 throughout RUE and RLE except trace hip adduction. Sensation intact x4. Right facial droop. Assessment/Plan: 1. Left CVA with dense right hemiplegia: ASA. 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 2. DM: glipizide/Januvia/SSI/lantus. Was off metformin due to increased creatinine which has since normalized. Restart metformin 500mg qam 12/06. 3. HTN: Lisinopril 4. Hyperlipidemia: Lipitor 80mg qday 5. Dysphagia: Mechanical soft diet/thin liquids 6. DVT Prophylaxis: Lovenox 7. Renal insufficiency: resolved 8. Advance Directives: Full code. 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 Leg spasms: on scheduled baclofen and prn robaxin 10. Nutrition: his brought in some supplements. 11. Depression: zoloft 50mg qday 12/05/18 10:32
[2018-12-05] MEDS: Atorvastatin* 80 MG TAB PO SCH (18:19)
[2018-12-05] MEDS: Enoxaparin(*) 40 MG/0.4 ML SYR SUBCUT SCH (20:04)
[2018-12-05] MEDS: Methocarbamol TAB* 500 MG PO PRN (21:10)
[2018-12-05] MEDS: Insulin GLARGINE(*) 1 UNITS UNIT SUBCUT SCH (21:21)
[2018-12-06] MEDS: Acetaminophen TAB* 325 MG PO PRN ×3 (00:35→21:55)
[2018-12-06] MEDS ORDERED: metFORMIN* 500 MG TAB PO SCH (08:00)
--- NOTE | 2018-12-06 09:51 | PN ---
Progress Note Date of Service: 12/06/18 Note: KEERTHI LEHMAN was visited. Nursing notes read and reviewed. No chest pain, shortness of breath or abdominal pain. FS were lower yesterday. He is trying to eat better. Current Medications: Active Medications Generic Name Dose Route Start Last Admin Trade Name Freq PRN Reason Stop Dose Admin Acetaminophen 650 mg 11/12/18 18:05 12/06/18 00:35 Tylenol Tab* PO 650 mg Q6H PRN Administration FEVER/PAIN Al Hydrox/Mg Hydrox/Simethicone 30 ml 11/13/18 13:46 11/13/18 13:57 Maalox Plus* PO 30 ml Q4H PRN Administration DYSPEPSIA Aspirin 325 mg 11/13/18 09:00 12/05/18 09:54 Ecotrin Ec Tab* PO 325 mg DAILY ELROY Administration Atorvastatin Calcium 80 mg 11/12/18 17:00 12/05/18 18:19 Lipitor* PO 80 mg 1700 ELROY Administration Baclofen 5 mg 11/23/18 14:00 12/05/18 19:52 Lioresal Tab* PO 5 mg TID ELROY Administration Bisacodyl 10 mg 11/12/18 14:09 12/03/18 16:30 Dulcolax Supp* [place] 10 mg DAILY PRN Administration CONSTIPATION Dextrose 12.5 gm 11/12/18 14:42 D50w Syringe 50 Ml* IV PUSH .FOR FS < 60 - SS PRN FS < 60 Docusate Sodium 100 mg 11/12/18 19:32 11/30/18 08:32 Colace Cap* PO 100 mg BID PRN Administration CONSTIPATION Enoxaparin Sodium 40 mg 11/12/18 20:30 12/05/18 20:04 Lovenox(*) SUBCUT 40 mg Q24H ELROY Administration Famotidine 20 mg 11/13/18 21:00 12/05/18 20:23 Pepcid Tab* PO 20 mg BID ELROY Administration Glipizide 5 mg 12/01/18 09:00 12/05/18 09:54 Glucotrol Xl* PO 5 mg DAILY ELROY Administration Insulin Human Lispro 0 - 10 units 11/23/18 21:00 12/05/18 21:22 Humalog* SUBCUT Not Given ACHS [facility] Protocol Lactobacillus Rhamnosus 1 tab 11/13/18 09:00 12/05/18 09:54 Lactobacillus Acidophilus* PO 1 tab DAILY ELROY Administration Lisinopril 40 mg 11/13/18 09:00 12/05/18 09:55 Prinivil Tab* PO 40 mg DAILY ELROY Administration Loperamide HCl 2 mg 11/12/18 19:31 11/15/18 00:02 Imodium Cap* PO 2 mg .SEE DIRECTIONS PRN Administration DIARRHEA Magnesium Hydroxide 30 ml 11/12/18 14:09 11/30/18 08:32 Milk Of Magnesia Liq* PO 30 ml Q6H PRN Administration CONSTIPATION Metformin HCl 500 mg 12/07/18 08:00 Glucophage* PO 0800 ELROY Methocarbamol 500 mg 11/22/18 09:29 12/05/18 21:10 Robaxin Tab* PO 500 mg QID PRN Administration spasm Metoclopramide HCl 5 mg 11/16/18 07:30 12/05/18 18:19 Reglan Tab* PO 5 mg AC ELROY Administration Pto: (Daily 1 cap 11/22/18 09:30 12/05/18 07:05 Essential Enzymes 1 PO Not Given Cap) DAILY ELROY Pto: (Dr. Vee's D3 1 cap 11/22/18 09:45 12/05/18 07:05 & K2 Vitamin 1 Cap) PO Not Given DAILY ELROY Pto:(Gallbladder 1 cap 11/26/18 07:30 12/05/18 18:12 Formula 1 Cap) PO Not Given AC ELROY Senna 2 tab 11/12/18 14:09 11/29/18 21:04 Senokot Tab* PO 2 tab BEDTIME PRN Administration CONSTIPATION Sertraline HCl 50 mg 12/05/18 09:00 12/05/18 09:55 Zoloft* PO 50 mg DAILY ELROY Administration Sitagliptin Phosphate 100 mg 11/13/18 09:00 12/05/18 09:55 Januvia (Nf) PO 100 mg DAILY ELROY Administration Vital Signs: Vital Signs Temp Pulse Resp BP Pulse Ox 97.6 F 56 16 132/62 97 12/06/18 05:51 12/06/18 05:51 12/06/18 05:51 12/06/18 05:51 12/06/18 05:51 Lab Results: Laboratory Results - last 24 hr 12/05/18 12/05/18 12/05/18 11:44 16:50 18:06 POC Glucose (mg/dL) 194 H 64 L 97 12/05/18 21:10 POC Glucose (mg/dL) 90 Exam: GENERAL: no acute distress. alert and appropriate with hypophonia. LUNGS: Clear to auscultation bilaterally. HEART: regular rate and rhythm with occasional skipped beat ABDOMEN: Soft, + bowel sounds, non-tender, non-distended EXTREMITIES: Mildly increased tone in right UE and LE. No edema. NEUROLOGIC: Dysarthric. 5/5 motor in LUE and LLE. 0/5 throughout RUE and RLE except trace hip adduction. Sensation intact x4. Right facial droop. Assessment/Plan: 1. Left CVA with dense right hemiplegia: ASA. 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 2. DM: glipizide/Januvia/SSI. I d/c'd lantus given hypoglycemia yesterday and I was going to restart metformin today, but will hold of until tomorrow since he received lantus last night. Was off metformin due to increased creatinine which has since normalized. Restart metformin 500mg qam 12/07 (home dose was 1000mg bid). 3. HTN: Lisinopril 4. Hyperlipidemia: Lipitor 80mg qday 5. Dysphagia: Mechanical soft diet/thin liquids 6. DVT Prophylaxis: Lovenox 7. Renal insufficiency: resolved 8. Advance Directives: Full code. 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 Leg spasms: on scheduled baclofen and prn robaxin 10. Nutrition: his brought in some supplements. 11. Depression: zoloft 50mg qday 12/06/18 09:49
[2018-12-06] MEDS: Insulin LISPRO* 1 UNITS UNIT SUBCUT SCH ×4 (10:18→20:50)
[2018-12-06] MEDS: GALLBLADDER FORMULA PO SCH ×3 (10:18→17:40)
[2018-12-06] MEDS: [UNRECOGNIZED DRUG - OTHER] PO SCH (10:19)
[2018-12-06] MEDS: [UNRECOGNIZED DRUG - REMARK] PO SCH (10:19)
[2018-12-06] MEDS: Famotidine TAB* 20 MG PO SCH ×2 (10:19→20:49)
[2018-12-06] MEDS: Lactobacillus Acidophilus* 1 TAB PO SCH (10:20)
[2018-12-06] MEDS: CMC:SitaGLIPtin (NF) 100 MG TAB PO SCH (10:20)
[2018-12-06] MEDS: glipiZIDE TAB.XL* 5 MG PO SCH (10:20)
[2018-12-06] MEDS: Sertraline* 50 MG TAB PO SCH (10:20)
[2018-12-06] MEDS: Lisinopril TAB* 10 MG PO SCH (10:20)
[2018-12-06] MEDS: Aspirin EC TAB* 325 MG PO SCH (10:21)
[2018-12-06] MEDS: Metoclopramide TAB* 10 MG PO SCH ×3 (10:21→17:29)
[2018-12-06] MEDS: Baclofen TAB* 10 MG PO SCH ×3 (10:21→20:49)
[2018-12-06] MEDS: Atorvastatin* 80 MG TAB PO SCH (17:41)
[2018-12-06] MEDS: Enoxaparin(*) 40 MG/0.4 ML SYR SUBCUT SCH (20:48)
[2018-12-06] MEDS: Methocarbamol TAB* 500 MG PO PRN (21:55)
[2018-12-07] MEDS ORDERED: metFORMIN* 500 MG TAB PO SCH (08:00)
[2018-12-07] MEDS: Insulin LISPRO* 1 UNITS UNIT SUBCUT SCH ×4 (08:27→21:16)
[2018-12-07] MEDS: Famotidine TAB* 20 MG PO SCH ×2 (08:34→21:06)
[2018-12-07] MEDS: Sertraline* 50 MG TAB PO SCH (08:34)
[2018-12-07] MEDS: CMC:SitaGLIPtin (NF) 100 MG TAB PO SCH (08:35)
[2018-12-07] MEDS: Lisinopril TAB* 10 MG PO SCH (08:35)
[2018-12-07] MEDS: Lactobacillus Acidophilus* 1 TAB PO SCH (08:35)
[2018-12-07] MEDS: glipiZIDE TAB.XL* 5 MG PO SCH (08:35)
[2018-12-07] MEDS: Aspirin EC TAB* 325 MG PO SCH (08:35)
[2018-12-07] MEDS: Baclofen TAB* 10 MG PO SCH ×3 (08:37→21:06)
[2018-12-07] MEDS: Metoclopramide TAB* 10 MG PO SCH ×3 (08:37→16:47)
[2018-12-07] MEDS: GALLBLADDER FORMULA PO SCH ×3 (08:38→16:47)
[2018-12-07] MEDS: [UNRECOGNIZED DRUG - OTHER] PO SCH (08:39)
[2018-12-07] MEDS: [UNRECOGNIZED DRUG - REMARK] PO SCH (08:39)
[2018-12-07] MEDS: Acetaminophen TAB* 325 MG PO PRN ×2 (08:40→21:08)
[2018-12-07] MEDS: Atorvastatin* 80 MG TAB PO SCH (16:48)
--- NOTE | 2018-12-07 17:49 | PN ---
Progress Note Date of Service: 12/07/18 Note: KEERTHI LEHMAN was visited. Therapy notes read and reviewed. He remains plegic in the arm but his voice is clear. Current Medications: Active Medications Generic Name Dose Route Start Last Admin Trade Name Freq PRN Reason Stop Dose Admin Acetaminophen 650 mg 11/12/18 18:05 12/07/18 08:40 Tylenol Tab* PO 650 mg Q6H PRN Administration FEVER/PAIN Al Hydrox/Mg Hydrox/Simethicone 30 ml 11/13/18 13:46 11/13/18 13:57 Maalox Plus* PO 30 ml Q4H PRN Administration DYSPEPSIA Aspirin 325 mg 11/13/18 09:00 12/07/18 08:35 Ecotrin Ec Tab* PO 325 mg DAILY ELROY Administration Atorvastatin Calcium 80 mg 11/12/18 17:00 12/07/18 16:48 Lipitor* PO 80 mg 1700 ELROY Administration Baclofen 5 mg 11/23/18 14:00 12/07/18 14:20 Lioresal Tab* PO 5 mg TID ELROY Administration Bisacodyl 10 mg 11/12/18 14:09 12/03/18 16:30 Dulcolax Supp* [place] 10 mg DAILY PRN Administration CONSTIPATION Dextrose 12.5 gm 11/12/18 14:42 D50w Syringe 50 Ml* IV PUSH .FOR FS < 60 - SS PRN FS < 60 Docusate Sodium 100 mg 11/12/18 19:32 11/30/18 08:32 Colace Cap* PO 100 mg BID PRN Administration CONSTIPATION Enoxaparin Sodium 40 mg 11/12/18 20:30 12/06/18 20:48 Lovenox(*) SUBCUT 40 mg Q24H ELROY Administration Famotidine 20 mg 11/13/18 21:00 12/07/18 08:34 Pepcid Tab* PO 20 mg BID ELROY Administration Glipizide 5 mg 12/01/18 09:00 12/07/18 08:35 Glucotrol Xl* PO 5 mg DAILY ELROY Administration Insulin Human Lispro 0 - 10 units 11/23/18 21:00 12/07/18 17:07 Humalog* SUBCUT Not Given ACHS [facility] Protocol Lactobacillus Rhamnosus 1 tab 11/13/18 09:00 12/07/18 08:35 Lactobacillus Acidophilus* PO 1 tab DAILY ELROY Administration Lisinopril 40 mg 11/13/18 09:00 12/07/18 08:35 Prinivil Tab* PO 40 mg DAILY ELROY Administration Loperamide HCl 2 mg 11/12/18 19:31 11/15/18 00:02 Imodium Cap* PO 2 mg .SEE DIRECTIONS PRN Administration DIARRHEA Magnesium Hydroxide 30 ml 11/12/18 14:09 11/30/18 08:32 Milk Of Magnesia Liq* PO 30 ml Q6H PRN Administration CONSTIPATION Metformin HCl 500 mg 12/07/18 08:00 12/07/18 08:35 Glucophage* PO 500 mg 0800 ELROY Administration Methocarbamol 500 mg 11/22/18 09:29 12/06/18 21:55 Robaxin Tab* PO 500 mg QID PRN Administration spasm Metoclopramide HCl 5 mg 11/16/18 07:30 12/07/18 16:47 Reglan Tab* PO 5 mg AC ELROY Administration Pto: (Daily 1 cap 11/22/18 09:30 12/07/18 08:39 Essential Enzymes 1 PO Not Given Cap) DAILY ELROY Pto: (Dr. Vee's D3 1 cap 11/22/18 09:45 12/07/18 08:39 & K2 Vitamin 1 Cap) PO Not Given DAILY ELROY Pto:(Gallbladder 1 cap 11/26/18 07:30 12/07/18 16:47 Formula 1 Cap) PO Not Given AC ELROY Senna 2 tab 11/12/18 14:09 11/29/18 21:04 Senokot Tab* PO 2 tab BEDTIME PRN Administration CONSTIPATION Sertraline HCl 50 mg 12/05/18 09:00 12/07/18 08:34 Zoloft* PO 50 mg DAILY ELROY Administration Sitagliptin Phosphate 100 mg 11/13/18 09:00 12/07/18 08:35 Januvia (Nf) PO 100 mg DAILY ELROY Administration Vital Signs: Vital Signs Temp Pulse Resp BP Pulse Ox 98.3 F 58 16 127/56 96 12/07/18 15:55 12/07/18 15:55 12/07/18 15:55 12/07/18 15:55 12/07/18 15:55 Lab Results: Laboratory Results - last 24 hr 12/06/18 12/06/18 12/07/18 16:51 20:34 07:26 POC Glucose (mg/dL) 186 H 130 H 130 H 12/07/18 12:01 POC Glucose (mg/dL) 119 H Exam: GENERAL: no acute distress. alert and appropriate with hypophonia. LUNGS: Clear to auscultation bilaterally. HEART: regular rate and rhythm with occasional skipped beat ABDOMEN: Soft, + bowel sounds, non-tender, non-distended EXTREMITIES: Mildly increased tone in right UE and LE. No edema. NEUROLOGIC: Dysarthric. 5/5 motor in LUE and LLE. 0/5 throughout RUE and RLE except trace hip adduction. Sensation intact x4. Right facial droop. Assessment/Plan: 1. Left CVA with dense right hemiplegia: ASA. 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 2. DM: glipizide/Januvia/SSI. Off lantus and re-started metformin 500mg qam (home dose was 1000mg bid). Increase to 0800,1700 3. HTN: Lisinopril 4. Hyperlipidemia: Lipitor 80mg qday 5. Dysphagia: Mechanical soft diet/thin liquids 6. DVT Prophylaxis: Lovenox 7. Advance Directives: Full code. is surrogate decision maker 8. Leg spasms: on scheduled baclofen and prn robaxin 9. Nutrition: his brought in some supplements. 10. Depression: zoloft 50mg qday 12/07/18 17:50 12/07/18 17:53
[2018-12-07] MEDS: Enoxaparin(*) 40 MG/0.4 ML SYR SUBCUT SCH (21:05)
[2018-12-07] MEDS: Docusate CAP* 100 MG PO PRN (21:07)
[2018-12-07] MEDS: Senna TAB PO PRN (21:09)
[2018-12-07] MEDS: Methocarbamol TAB* 500 MG PO PRN (21:09)
[2018-12-08] MEDS: GALLBLADDER FORMULA PO SCH ×3 (08:43→17:22)
[2018-12-08] MEDS: Insulin LISPRO* 1 UNITS UNIT SUBCUT SCH ×4 (08:43→20:42)
[2018-12-08] MEDS: [UNRECOGNIZED DRUG - OTHER] PO SCH (08:47)
[2018-12-08] MEDS: [UNRECOGNIZED DRUG - REMARK] PO SCH (08:47)
[2018-12-08] MEDS: Metoclopramide TAB* 10 MG PO SCH ×3 (08:50→17:21)
[2018-12-08] MEDS: glipiZIDE TAB.XL* 5 MG PO SCH (08:50)
[2018-12-08] MEDS: Baclofen TAB* 10 MG PO SCH ×3 (08:50→20:55)
[2018-12-08] MEDS: Aspirin EC TAB* 325 MG PO SCH (08:50)
[2018-12-08] MEDS: Lisinopril TAB* 10 MG PO SCH (08:50)
[2018-12-08] MEDS: CMC:SitaGLIPtin (NF) 100 MG TAB PO SCH (08:50)
[2018-12-08] MEDS: metFORMIN* 500 MG TAB PO SCH ×2 (08:50→17:20)
[2018-12-08] MEDS: Lactobacillus Acidophilus* 1 TAB PO SCH (08:50)
[2018-12-08] MEDS: Famotidine TAB* 20 MG PO SCH ×2 (08:50→20:55)
[2018-12-08] MEDS: Sertraline* 50 MG TAB PO SCH (08:50)
--- NOTE | 2018-12-08 12:28 | PMRUTEAM ---
PMRU: Team Meeting Current Status: Nursing: Current Status Skin Deviations [gluteal cleft Other ] Skin Deviations [Bilateral Other Heel] Skin Deviations [Upper Back] Rash Skin Deviations [Right Arm] Bruise Skin Deviation Description [ open slit, orange cream applied gluteal cleft] Skin Deviation Description [ sl reddened Bilateral Heel] Skin Deviation Description [ lotion applied Upper Back] Skin Deviation Description [ bruises unchanged since adm Right Arm] Bladder Current Status used urinal Bowel Current Status bowel meds given. patient disimpacted on 12/07. last bm 12/08/18 Nutrition Current Status appetite good Medication Current Status takes meds whole with water. Physical Therapy: Current Status Bed Mobility Assistance Mod Assist,2 or More Person Assist Transfer Mobility Assistance 2 or More Person Assist Transfer/Bed Mobility Dorcas Lift Recommended Devices Ambulation Assistance Unable Stairs Assistance Not Tested Curb Not Tested Manual Wheelchair Control/ Left UE Technique Wheelchair Propulsion Ability Moderate Assistance Wheelchair Distance (ft) 45 Objective Comments cues and instruction to self-propel wheelchair with moderate assistance provided especially for turning due to only being able to propel with LUE Occupational Therapy: Current Status Upper Body Dressing Mod Assist Lower Body Dressing Total Assist,2 Person Assist Bathing Mod Assist,2 Person Assist Toileting Total Assist,2 Person Assist Toilet Transfer Total Assist,2 Person Assist Shower Transfer Total Assist,2 Person Assist Eating Supervision Rec Therapy: Current Status Summary of Assessment and Pt. has been engaging in daily conversation with t Clinical Impression /w in addition to watching TV (Dr. Varghese) and spending time with friends/family while in his room. Treatment Goals Pt. will continue to engage in leisure while on the unit Treatment Plan Continue providing recreation services Social Work: Current Status Discharge Plan transfer to skill level of care Potential for Family Training n/a [place] [facility] [place] [facility] [place]: Current Status Monitoring Visited pt. Pt states "cutting back" to watch weight but intake appears still adequate. Lantus d/c, metformin resumed w/glipizide. Control excellent - watch for hypoglycemia. FS [id number] . BM 12/08 but required disimpaction. Continues w/ mechanical soft texture. Follow progress and ability to advance texture. Open slit gluteal cleft - monitor skin, appears to be meeting needs. - Speech: Current Status Assessment Patient is progressing as expected. His voice was somewhat hoarse today after a weekend of family visitors. Patient responded to voice faciliatation techniques with temporary improvement. Best recorded vocalization measured Moderately dysphonic. Speech Current Status Goal 1 Mild impairment Speech Goal 2 Current Status Moderate impairment Speech Goal 3 Current Status Moderate impairment Goals: Physical Therapy: Initial Goals Bed Mobility Assistance Independent Transfer Mobility Assistance Independent Transfer/Bed Mobility Krishan Walker Recommended Devices Ambulation Independent Ambulation Recommended Devices Krishan Walker Ambulation Distance 5 Wheelchair Propulsion Ability Independent Physical Therapy: Updated Goals Transfer/Bed Mobility Dorcas Lift Recommended Devices Occupational Therapy: Initial Goals Goals to be Completed in (Days 42+ ) Upper Body Bathing Routine Independent Lower Body Bathing Routine Modified Independent with Upper Body Dressing Routine Independent Lower Body Dressing Routine Modified Independent with Toilet Hygeine and Clothing Modified Independent with Management Routine Toilet Transfer Routine Modified Independent with Step-In Shower Transfer Supervision/Set Up Routine Functional Transfers for ADL Modified Independent with Grooming Routine Independent Feeding Routine Independent Nursing: Goals Bladder Goal independent Bowel Goal independent Nutrition Goal 100% of all meals consumed Medication Goal independent Nutrition: Goals Intervention Goals 1. adequate po intake to support hydration, lean body mass and skin integrity w/o add'l wt gain 2. tolerates least-restrictive diet texture without difficulty chewing, swallowing 3. glycemic control within inpatient parameters; no s/sx hypo-hyperglycemia 4. achieves regulation of bowel pattern; no c/o constipation (or diarrhea) 5. no new areas of skin breakdown, and evidence of resolution of gluteal cleft pressure ulcer Speech: Goals Speech Goal 1 Swallowing Speech Evaluation Status Goal Mild-moderate impairment 1 Speech Current Status Goal 1 Mild impairment Goal 1 Comments SWALLOW Long-Term Goal: Patient will I'ly follow precautions to tolerate least restrictive diet consistencies w/ no complications from aspiration. Status: Progressing as expected. Short Term Goals: 1) STG: Patient will demonstrate and follow swallowing exercises and compensatory strategies, to tolerate mechanical/ground diet texture and nectar thick liquids, w/ adequate PO intake and no clinical s/s aspiration, Independently Status: Met 2) STC: Patient will I'ly follow precautions and compensatory strategies, to tolerate thin water between meals and after good oral hygiene, without regard to expected clinical s/s of aspiration, and with no complications from aspiration, Independently Status: Met 3) STG: Patient will demonstrate and follow swallowing exercises and compensatory strategies, to tolerate regular diet consistency w/ no clinical s/s aspiration, Independently Status: Met 4) STC: Patient will I'ly follow precautions and compensatory strategies, to tolerate thin liquids with no clinical s/s or complications from aspiration, Independently Status: Ongoing, progressing as expectedLong-Term Goal: Patient will I'ly follow precautions to tolerate least restrictive diet consistencies w/ no complications from aspiration. Status: Goals established Short Term Goals: 1) STG: Patient will demonstrate and follow swallowing exercises and compensatory strategies, to tolerate mechanical/ground diet texture and nectar thick liquids, w/ adequate PO intake and no clinical s/s aspiration, Independently 2) STC: Patient will I'ly follow precautions and compensatory strategies, to tolerate thin water between meals and after good oral hygiene, without regard to expected clinical s/s of aspiration, and with no complications from aspiration, Independently 3) STG: Patient will demonstrate and follow swallowing exercises and compensatory strategies, to tolerate regular diet consistency w/ no clinical s/s aspiration, Independently 4) STC: Patient will I'ly follow precautions and compensatory strategies, to tolerate thin liquids with no clinical s/s or complications from aspiration, Independently Status: Progressing as expected. BODY ENGINEER provided futhter instruction and directed patient to 1) complete oropharyngeal exercises: Maggie maneuver exercises with tongue tip advanced to alveolar ridge to improve tongue-base retraction; and Jaw-opening exercise and Nancy maneuver to improve hyolaryngeal excursion. BODY ENGINEER modified instruction: patient advanced tongue tip as far as the back of his incisors, but could not initiate swallow with tongue tip advanced between lips or incisors. Patient felt his larynx rise as he swallowed, but could not hold the larynx high for 1 second; patient completed Jaw opeing exercise accurately as alternative. 2) perform compensatory swallowing techniues. Patient accurately performed chin-tuck, hard swallows; completed modified Maggie manever and jaw opening geniohyoid exercise. Patient demonstrated ability to perform modified Supraglottic swallow technique with 80% accuracy given skilled instruction and cueing faded to minimal, by breathing in and hold his breath just before taking liquid, swallowing immediately, and exhaling without cough Speech Goal 2 Motor Speech Speech Goal 2 Evaluation Moderate impairment Status Speech Goal 2 Current Status Moderate impairment Speech Goal 2 Comments Motor-speech Long-Term Goal: Pt will I'ly speak with 100% intelligibility, Independently Status: Goals established Short-Term Goal 1: Pt will use compensatory strategies to increase speech to intelligibility to 100% in spontaneous conversational speech, given minimal cueing. Short-Term Goal 2: Pt will use compensatory articulation strategies to increase speech to intelligibility to 90% in structured speech activities, given Moderate cueing. Status: Progressing as expected. As patient's voice became intemrittently hoarse, patient demonstrated previously instructed strategy of chunking utterances into short breath groups and improved intelligibility, givne minimal cueiung. Speech Goal 3 Voice Speech Goal 3 Evaluation Moderate-Severe impairment Status Speech Goal 3 Current Status Moderate impairment Speech Goal 3 Comments Voice Goals: Long-Term Goal: Pt will use compensatory strategies to increase vocal loudness, pitch range and tone quality to mild-moderate impairment, and speech to intelligibility to 95-100%, in spontaneous conversational speech, Independently, as observed by therapists, nursing and medical staff. Status: Progressing as expected Short-Term Goal: Pt will complete loud voice exercises and use compensatory strategies to increase vocal loudness, pitch range and tone quality to moderate impairment, and speech to intelligibility to 90%, in structured conversational speech, given moderate cueing, as observed by therapists, nursing and medical staff. Status: Met. Adjust goal to 95%, Minimal cueing/. Patient demonstrated moderately hoarse vocal quality after rep[ortedly clearer voice over the weekend with family. Patient responded to voice faciliatation techniques of recovery breathing, yawn-sigh, and elevated pitch, with temporary improvement. Several attempts were made to measure patient's best vocal quality; each time patient demonstrated louder, clearer voice and then recorded, his vocal quality was perceptibly more hoarse. For best sample, patient sustained vocalization for 3 seconds at C#3 (136.5 Hz) with Jitter 3.3% and Shimmer 8.0%, where targets are Jitter below 2.0% and Shimmer below 4.0%. Social Work: Goals Discharge Plan transfer to skill level of care Potential for Family Training n/a [place] [facility] [place] [facility] [place] Plan: Care Plan ADL's - Improve/Maintain Start: 11/13/18 07:10 Freq: DAILY Status: Active Target: Protocol: Activity Type Activity Date Activity User E-Sign Co-Sign Detail Recorded Client Recorded Date Recorded By Document 12/03/18 11:57 [id number] [id number] 12/03/18 11:57 [id number] 12/03/18 11:57 PMRU Outcome: ADL's/ADL Transfers Orders/Interventions Occupational Therapy Evaluation & Treatment Communication Tool in Patient Room Patient to receive OT 5x/wk for 60-120 Therex min/day Self Care Management Group Therapy UE/LE ADL's with Assist Yes: mod I ADL Transfers with Assist Yes: mod I Toileting: Transfers,Clothing Management Yes: mod I ,Hygeine w/Assist Outcome/Goals Met No change in RUE. ADL status remains static . Cardiovascular-Improve/Maintain Start: 11/13/18 00:55 Freq: DAILY@0400,1600 Status: Active Target: Protocol: Activity Type Activity Date Activity User E-Sign Co-Sign Detail Recorded Client Recorded Date Recorded By Document 12/08/18 11:03 [id number] [id number] 12/08/18 11:04 [id number] 12/08/18 11:03 Outcome: Cardiovascular Current Cardiovascular Outcome/Goal Maintain/ achieve baseline HR, BP , Perfusion Progression Towards Outcome/Goal Progressing Communication-Improve/Maintain Start: 11/13/18 12:14 Freq: DAILY Status: Active Target: Protocol: Activity Type Activity Date Activity User E-Sign Co-Sign Detail Recorded Client Recorded Date Recorded By Document 12/08/18 00:50 [id number] [id number] 12/08/18 00:51 [id number] 12/08/18 00:50 PMRU Outcome: Communication/Cognitive Status Outcome/Goals Makes Needs Known Effectively Other Outcomes/Goals SWALLOW Long-Term Goal: Patient will I 'ly follow precautions to tolerate least restrictive diet consistencies w / no complications from aspiration . Short Term Goals: 1) STG: Patient will demonstrate and follow swallowing exercises and compensatory strategies, to tolerate mechanical/ ground diet texture and nectar thick liquids, w/ adequate PO intake and no clinical s/s aspiration, Independently Status: Met 2) STC: Patient will I' ly follow precautions and compensatory strategies, to tolerate thin water between meals and after good oral hygiene, without regard to expected clinical s/s of aspiration, and with no complications from aspiration , Independently Status: Met 3) STG: Patient will demonstrate and follow swallowing exercises and compensatory strategies, to tolerate regular diet consistency w/ no clinical s/s aspiration, Independently Status: Met 4) STC: Patient will I' ly follow precautions and compensatory strategies, to tolerate thin liquids with no clinical s/s or complications from aspiration , Independently Status: Ongoing, progressing as expected MOTOR SPEECH Long-Term Goal: Pt will I'ly speak with 100% intelligibility , Independently Status: Progressing as expected Short-Term Goal 1: Pt will use compensatory strategies to increase speech to intelligibility to 100% in spontaneous conversational speech, given minimal cueing. Short-Term Goal 2: Pt will use compensatory articulation strategies to increase speech to 90% intelligibility in structured speech activities, given Moderate cueing. Status: Progressing as expected. VOICE Long-Term Goal: Pt will use compensatory strategies to increase vocal loudness, pitch range and tone quality to mild-moderate impairment, and speech to intelligibility to 95-100%, in spontaneous conversational speech, Independently, as observed by therapists, nursing and medical staff. Status: Progressing slowlyas expected. Short-Term Goal (adjusted 12/07): Pt will complete loud voice exercises and use compensatory strategies to increase vocal loudness, pitch range and tone quality to moderate impairment, and speech to intelligibility to 95%, in structured conversational speech, given Minimal cueing, as observed by therapists, nursing and medical staff. Status: Met, goal adjusted to 95%, Minimal cueing. Progression Toward Outcomes/Goals Progressing Coping/Psych-Improve/Maintain Start: 11/16/18 15:42 Freq: QSHIFT Status: Active Target: Protocol: Activity Type Activity Date Activity User E-Sign Co-Sign Detail Recorded Client Recorded Date Recorded By Document 12/08/18 11:03 [id number] [id number] 12/08/18 11:04 [id number] 12/08/18 11:03 PMRU Outcome: Coping/Psychosocial Coping Outcome/Goals Verbalization of Acceptance of Rehab Admit Willingness to Participate in Treatment Plan and Basic Needs Utilization of Available Support Systems Absence of Destructive Behavior to Self/Others Psychosocial Outcome/Goals Maintain/ Improve Emotional Health Demonstrates Knowledge of Healthy Coping Mechanisms Available Cooperate/ Participate in Plan Progression Toward Outcome/Goals - Progressing Coping Progression Toward Outcome/Goals - Progressing Psychosocial Coping Outcome/Goals Met Performs Actions to Reduce Fear and Anxiety Performs Actions to Reduce Pain and Prevent Complications Psychosocial Outcome/Goals Met Cooperate/ Participated in Plan DVT Prophylaxis- Improve/Maintain Start: 11/16/18 15:42 Freq: QSHIFT Status: Active Target: Protocol: Activity Type Activity Date Activity User E-Sign Co-Sign Detail Recorded Client Recorded Date Recorded By Document 12/08/18 11:03 [id number] 12/08/18 11:04 [id number] 12/08/18 11:03 PMRU Outcome: DVT Prophylaxis Outcome/Goals Remains Free of DVT Complies with DVT Prophylaxis /Treatment Demonstrates Knowledge of DVT Prevention/ Treatment TEDS Stockings on Every AM, Off at HS Progression Toward Outcome/Goals Progressing Discharge Planning Start: 11/13/18 00:55 Freq: DAILY@0400,1600 Status: Complete Target: Protocol: Activity Type Activity Date Activity User E-Sign Co-Sign Detail Recorded Client Recorded Date Recorded By Document 11/16/18 02:40 [id number] [email or web address] 11/16/18 02:40 [id number] 11/16/18 02:40 Outcome: Discharge Planning Outcome/Goals Demonstrates Understanding of Discharge Plan Necessary Services Arranged for Post Discharge Care Progression Toward Outcome/Goals Progressing Discharge Planning - Improve/Maintain Start: 11/16/18 15:42 Freq: DAILY Status: Active Target: Protocol: Activity Type Activity Date Activity User E-Sign Co-Sign Detail Recorded Client Recorded Date Recorded By Document 12/08/18 00:51 [id number] [email or web address] 12/08/18 00:51 [id number] 12/08/18 00:51 PMRU Outcome: Discharge Planning Update Patient Family No Outcome/Goals Demonstrates Understanding of Discharge Plan Education-Improve/Maintain Start: 11/16/18 15:42 Freq: QSHIFT Status: Active Target: Protocol: Activity Type Activity Date Activity User E-Sign Co-Sign Detail Recorded Client Recorded Date Recorded By Document 12/08/18 11:03 [id number] [email or web address] 12/08/18 11:04 [id number] 12/08/18 11:03 PMRU Outcome: Education Outcome/Goals Demonstrates Skills Encourage Questions Progression Toward Outcome/Goals Progressing Genitourinary-Improve/Maintain Start: 11/13/18 00:55 Freq: DAILY@0400,1600 Status: Complete Target: Protocol: Activity Type Activity Date Activity User E-Sign Co-Sign Detail Recorded Client Recorded Date Recorded By Document 11/16/18 02:40 [id number] [email or web address] 11/16/18 02:40 [id number] 11/16/18 02:40 Outcome: Genitourinary Outcome/Goals Maintain/ Achieve Urinary Continence Maintain/ Achieve Adequate Urinary Output Progression Toward Outcome/Goals Progressing Outcome/Goals Met Comment pt used urinal Medication Administration Start: 11/16/18 15:42 Freq: QSHIFT Status: Active Target: Protocol: Activity Type Activity Date Activity User E-Sign Co-Sign Detail Recorded Client Recorded Date Recorded By Document 12/08/18 11:03 [id number] [email or web address] 12/08/18 11:04 [id number] 12/08/18 11:03 PMRU Outcome: Medication Administration Assess Patient Knowledge/Teach Med Yes Education for all Meds Outcome/Goals Patient Independent with Medication Administration at Home Demonstrates Understanding Progression Towards Outcome/Goals Progressing Is Patient Going Home on Lovenox? No Metabolic Status- Improve/Maintain Start: 11/16/18 15:42 Freq: QSHIFT Status: Active Target: Protocol: Activity Type Activity Date Activity User E-Sign Co-Sign Detail Recorded Client Recorded Date Recorded By Document 12/08/18 11:03 [id number] [email or web address] 12/08/18 11:04 [id number] 12/08/18 11:03 PMRU Outcome: Metabolic Status Have Fingersticks Been Ordered Yes Fingerstick Order Frequency AC & HS Outcome/Goals Maintain/ Improve Metabolic Status Demonstrate Knowledge of Prevention/ Treatment of Metabolic Imbalances Progression Toward Outcome/Goals Progressing Mobility- Improve/Maintain Start: 11/13/18 20:36 Freq: DAILY Status: Active Target: Protocol: Activity Type Activity Date Activity User E-Sign Co-Sign Detail Recorded Client Recorded Date Recorded By Document 11/13/18 20:36 [id number] [email or web address] 11/13/18 20:37 [id number] 11/13/18 20:36 PMRU Outcome: Mobility Physical Therapy Evaluation and Yes Treatment Activity OOB with Assistance Yes WBAT Yes Device Yes Assistance Yes Patient to be seen 5x/wk for 60-120 min/ Therex day for: Mobility Training Gait Training W/C Mobility Balance Other Outcome/Goals Maintain/ Achieve Baseline Mobility Status Improve Mobility Status Demonstrates Proper Use of Assistive Devices Free from Complications of Immobility Bed Mobility Yes: independent Transfers Yes: independent with krishan walker Gait x ft Yes: independent 5 feet with krishan walker W/C Mobility x ft Yes: independnet Neurological- Improve/Maintain Start: 11/16/18 15:42 Freq: QSHIFT Status: Active Target: Protocol: Activity Type Activity Date Activity User E-Sign Co-Sign Detail Recorded Client Recorded Date Recorded By Document 12/08/18 11:03 [id number] [email or web address] 12/08/18 11:04 [id number] 12/08/18 11:03 PMRU Outcome: Neurological Weakness/Aphasia Weakness Right Side Weakness/Aphasia Comment dysarthria, dysphagia. r sided weakness Outcome/Goals Maintain/ Achieve Baseline Neurological Status Improve Neurological Status Prevent Avoidable Neurological Decline Demonstrate Knowledge of Prevention/Tx of Neuro Disorders/ Complication Maintain/ Improve Strength/ROM Progression Toward Outcome/Goals Progressing Nutrition-Improve/Maintain Start: 11/13/18 21:19 Freq: DAILY@0400,1600 Status: Complete Target: Protocol: Activity Type Activity Date Activity User E-Sign Co-Sign Detail Recorded Client Recorded Date Recorded By Document 11/16/18 02:40 [id number] [email or web address] 11/16/18 02:40 [id number] 11/16/18 02:40 Outcome: Nutrition Outcome/Goals Demonstrates Adequate Hydration Progression Toward Outcome/Goals Progressing Outcome/Goals Met Comment pt not eating much Nutrition/Swallowing- Improve/Maintain Start: 11/16/18 15:42 Freq: QSHIFT Status: Active Target: Protocol: Activity Type Activity Date Activity User E-Sign Co-Sign Detail Recorded Client Recorded Date Recorded By Document 12/08/18 00:50 [id number] [email or web address] 12/08/18 00:51 [id number] 12/08/18 00:50 PMRU Outcome: Nutrition/Swallowing Outcome/Goals Demonstrates Adequate Hydration/ Prevents Dehydration Maintain/ Improve Nutritional Status Progression Toward Outcome/Goals Progressing Safety- Improve/Maintain Start: 11/16/18 15:42 Freq: QSHIFT Status: Active Target: Protocol: Activity Type Activity Date Activity User E-Sign Co-Sign Detail Recorded Client Recorded Date Recorded By Document 12/08/18 11:03 [id number] [email or web address] 12/08/18 11:04 [id number] 12/08/18 11:03 PMRU Outcome: Safety Outcome/Goals Remain Free of Injury or Harm Cooperates with Safety Measures for Least Restrictive Environment Prevent Falls/ Injury Progression Toward Outcome/Goals Progressing Outcome/Goals Met Comment BA armed when in bed, PA on when in chair Skin- Improve/Maintain Start: 11/16/18 15:42 Freq: QSHIFT Status: Active Target: Protocol: Activity Type Activity Date Activity User E-Sign Co-Sign Detail Recorded Client Recorded Date Recorded By Document 12/08/18 11:03 [id number] [email or web address] 12/08/18 11:04 [id number] 12/08/18 11:03 PMRU Outcome: Skin Skin Risk Level High Skin Orders Multipodus Boot Heels Off Bed Turn/Position q2hr While in Bed Outcome/Goals Maintain/ Improve Skin Intergrity Free from Decubitus Progression Toward Outcome/Goals Progressing Medicine Note: Length of Stay: 1-3 days [place] [facility] [place] Tentative Discharge Date: December 09 Discharged to: [facility]
[2018-12-08] MEDS: Atorvastatin* 80 MG TAB PO SCH (17:20)
--- NOTE | 2018-12-08 17:44 | CONSULT ---
Subjective Date of Service: 12/08/18 Interval History: Mr. Cosme is a 73 yo male with PMH significant for CVA with right hemiplegia, DM2 , HTN, and HLD, who presented to the hospital for acute rehab after a CVA. During the course of his stay [facility] staff reports that he has developed an open area in his cleft. This has closed and opened on a few occasions. They have been turning and repositioning and using barrier cream. Patient seen and examined at bedside. Family History: Unchanged from Admission Social History: Unchanged from Admission Past Medical History: Unchanged from Admission Review of Systems - Measurements Intake and Output: Intake and Output Last 24 Hours 12/06/18 12/07/18 12/08/18 12/09/18 06:59 06:59 06:59 06:59 Intake Total 100 360 220 150 Output Total 475 250 350 Balance -375 110 -130 150 Intake: Oral 100 360 220 150 Output: Urine 475 250 350 # Incontinent Voids 0 Other: Estimated Void Small # Bowel Movements 1 Estimated Stool Amount Medium # Voids 1 1 - Review of Systems Constitutional Symptoms: Negative: Fever, Other - Chills Dermatology: Positive: Other - Open area to buttocks Endocrinology: Positive: Diabetes Mellitus Neurology: Positive: Hx of Stroke\TIA, Other - Right sided weakness Objective Active Medications: Acetaminophen (Tylenol Tab*) 650 mg PO Q6H PRN Reason: FEVER/PAIN Al Hydrox/Mg Hydrox/Simethicone (Maalox Plus*) 30 ml PO Q4H PRN Reason: DYSPEPSIA Aspirin (Ecotrin Ec Tab*) 325 mg PO DAILY [facility] Atorvastatin Calcium (Lipitor*) 80 mg PO 1700 ELROY Baclofen (Lioresal Tab*) 5 mg PO TID ELROY Bisacodyl (Dulcolax Supp*) 10 mg [place] DAILY PRN Reason: CONSTIPATION Dextrose (D50w Syringe 50 Ml*) 12.5 gm IV PUSH .FOR FS < 60 - SS PRN Reason: FS < 60 Docusate Sodium (Colace Cap*) 100 mg PO BID PRN Reason: CONSTIPATION Enoxaparin Sodium (Lovenox(*)) 40 mg SUBCUT Q24H ELROY Famotidine (Pepcid Tab*) 20 mg PO BID ELROY Glipizide (Glucotrol Xl*) 5 mg PO DAILY [facility] Insulin Human Lispro (Humalog*) 0 - 10 units SUBCUT ACHS ELROY; Protocol Lactobacillus Rhamnosus (Lactobacillus Acidophilus*) 1 tab PO DAILY ELROY Lisinopril (Prinivil Tab*) 40 mg PO DAILY ELROY Loperamide HCl (Imodium Cap*) 2 mg PO .SEE DIRECTIONS PRN Reason: DIARRHEA Magnesium Hydroxide (Milk Of Magnesia Liq*) 30 ml PO Q6H PRN Reason: CONSTIPATION Metformin HCl (Glucophage*) 500 mg PO 0800,1700 ELROY Methocarbamol (Robaxin Tab*) 500 mg PO QID PRN Reason: spasm Metoclopramide HCl (Reglan Tab*) 5 mg PO AC ELROY Pto: (Daily Essential Enzymes 1 Cap) 1 cap PO DAILY ELROY Pto: (Dr. Vee's D3 (& K2 Vitamin 1 Cap)) 1 cap PO DAILY ELROY Pto:(Gallbladder (Formula 1 Cap)) 1 cap PO AC ELROY Senna (Senokot Tab*) 2 tab PO BEDTIME PRN Reason: CONSTIPATION Sertraline HCl (Zoloft*) 50 mg PO DAILY [facility] Sitagliptin Phosphate (Januvia (Nf)) 100 mg PO DAILY [facility] 12/08/18 06:28 Temperature 97.6 F Temperature Oral Source Pulse Rate 59 Respiratory 14 Rate Blood Pressure 134/57 (mmHg) Blood Pressure 76 Mean O2 Sat by Pulse 98 Oximetry Patient on Room Yes Air Oxygen Devices in Use Now: None Appearance: NAD, laying in bed Ears/Nose/Mouth/Throat: Mucous Membranes Moist Respiratory: Symmetrical Chest Expansion and Respiratory Effort Skin: - - See skin note below Neurological: Alert and Oriented x 3 Nutrition: Taking PO's Result Diagrams: 12/05/18 05:02 12/05/18 04:59 Skin Deviation Note - Skin Deviation Findings cleft - Healed open area. The surrounding skin is intact, there is no open area. There is no drainage or erythema. The healed area measures 4.5 cm x 1.5 cm. Assessment/Plan: Mr. Cosme is a 73 yo male with PMH significant for CVA with right hemiplegia, DM2 , HTN, and HLD, who presented to the hospital for acute rehab after a CVA. 1. Skin breakdown, healed area. Suspect breakdown is secondary to moisture and skin trauma during bathing. Recommend frequent T+P. Leave area open to air. If opens up, may apply barrier cream. Use caution with bathing as to not pull on the skin and gentle cleaning of the area, making sure the area is dry after bathing. 2. Diabetes Mellitus. No HgA1C in the EMR. Maintain good glycemic control to allow for wound healing. 3. CVA. With residual right sided weakness 4. Diet. Consistent Carbohydrate, mechanical soft and thin liquids 5. Code Status. Full code. 6. Disposition. Inpatient, disposition per primary team. TIEM SPENT: Time for this wound consultation was 20 minutes and 10 minutes was spent with the patient discussing past medical history; assessing, measuring, and photographing the wound. Wound Problem/Plan Is Patient a Wound Clinic Patient: No Attending: Aleena Chery
--- NOTE | 2018-12-08 19:52 | PN ---
Progress Note Date of Service: 12/08/18 Note: KEERTHI LEHMAN was visited. Therapy notes read and reviewed. Solo was discussed in interdisciplinary team rounds. A meeting was held with Solo's and daughters regarding slow rate of progress and subacute rehab. They had a lot of questions regarding MARIA C and transfer process Current Medications: Active Medications Generic Name Dose Route Start Last Admin Trade Name Freq PRN Reason Stop Dose Admin Acetaminophen 650 mg 11/12/18 18:05 12/07/18 21:08 Tylenol Tab* PO 650 mg Q6H PRN Administration FEVER/PAIN Al Hydrox/Mg Hydrox/Simethicone 30 ml 11/13/18 13:46 11/13/18 13:57 Maalox Plus* PO 30 ml Q4H PRN Administration DYSPEPSIA Aspirin 325 mg 11/13/18 09:00 12/08/18 08:50 Ecotrin Ec Tab* PO 325 mg DAILY ELROY Administration Atorvastatin Calcium 80 mg 11/12/18 17:00 12/08/18 17:20 Lipitor* PO 80 mg 1700 ELROY Administration Baclofen 5 mg 11/23/18 14:00 12/08/18 14:10 Lioresal Tab* PO 5 mg TID ELROY Administration Bisacodyl 10 mg 11/12/18 14:09 12/03/18 16:30 Dulcolax Supp* [place] 10 mg DAILY PRN Administration CONSTIPATION Dextrose 12.5 gm 11/12/18 14:42 D50w Syringe 50 Ml* IV PUSH .FOR FS < 60 - SS PRN FS < 60 Docusate Sodium 100 mg 11/12/18 19:32 12/07/18 21:07 Colace Cap* PO 100 mg BID PRN Administration CONSTIPATION Enoxaparin Sodium 40 mg 11/12/18 20:30 12/07/18 21:05 Lovenox(*) SUBCUT 40 mg Q24H ELROY Administration Famotidine 20 mg 11/13/18 21:00 12/08/18 08:50 Pepcid Tab* PO 20 mg BID ELROY Administration Glipizide 5 mg 12/01/18 09:00 12/08/18 08:50 Glucotrol Xl* PO 5 mg DAILY ELROY Administration Insulin Human Lispro 0 - 10 units 11/23/18 21:00 12/08/18 17:22 Humalog* SUBCUT Not Given ACHS [facility] Protocol Lactobacillus Rhamnosus 1 tab 11/13/18 09:00 12/08/18 08:50 Lactobacillus Acidophilus* PO 1 tab DAILY ELROY Administration Lisinopril 40 mg 11/13/18 09:00 12/08/18 08:50 Prinivil Tab* PO 40 mg DAILY ELRYO Administration Loperamide HCl 2 mg 11/12/18 19:31 11/15/18 00:02 Imodium Cap* PO 2 mg .SEE DIRECTIONS PRN Administration DIARRHEA Magnesium Hydroxide 30 ml 11/12/18 14:09 11/30/18 08:32 Milk Of Magnesia Liq* PO 30 ml Q6H PRN Administration CONSTIPATION Metformin HCl 500 mg 12/08/18 08:00 12/08/18 17:20 Glucophage* PO 500 mg 0800,1700 ELROY Administration Methocarbamol 500 mg 11/22/18 09:29 12/07/18 21:09 Robaxin Tab* PO 500 mg QID PRN Administration spasm Metoclopramide HCl 5 mg 11/16/18 07:30 12/08/18 17:21 Reglan Tab* PO 5 mg AC ELROY Administration Pto: (Daily 1 cap 11/22/18 09:30 12/08/18 08:47 Essential Enzymes 1 PO Not Given Cap) DAILY ELROY Pto: (Dr. Vee's D3 1 cap 11/22/18 09:45 12/08/18 08:47 & K2 Vitamin 1 Cap) PO Not Given DAILY ELROY Pto:(Gallbladder 1 cap 11/26/18 07:30 12/08/18 17:22 Formula 1 Cap) PO 1 cap AC ELROY Administration Senna 2 tab 11/12/18 14:09 12/07/18 21:09 Senokot Tab* PO 2 tab BEDTIME PRN Administration CONSTIPATION Sertraline HCl 50 mg 12/05/18 09:00 12/08/18 08:50 Zoloft* PO 50 mg DAILY ELROY Administration Sitagliptin Phosphate 100 mg 11/13/18 09:00 12/08/18 08:50 Januvia (Nf) PO 100 mg DAILY ELROY Administration Vital Signs: Vital Signs Temp Pulse Resp BP Pulse Ox 98.2 F 66 16 159/63 98 12/08/18 16:25 12/08/18 16:25 12/08/18 18:29 12/08/18 16:25 04/23/19 16:25 Lab Results: Laboratory Results - last 24 hr 12/07/18 12/07/18 12/08/18 16:46 20:58 07:24 POC Glucose (mg/dL) 99 111 H 94 12/08/18 12/08/18 11:59 16:27 POC Glucose (mg/dL) 85 82 Exam: GENERAL: no acute distress. alert and appropriate with hypophonia. LUNGS: Clear to auscultation bilaterally. HEART: regular rate and rhythm with occasional skipped beat ABDOMEN: Soft, + bowel sounds, non-tender, non-distended EXTREMITIES: Mildly increased tone in right UE and LE. No edema. NEUROLOGIC: Dysarthric. 5/5 motor in LUE and LLE. 0/5 throughout RUE and RLE except trace hip adduction. Sensation intact x4. Right facial droop. Assessment/Plan: 1. Left CVA with dense right hemiplegia: ASA. PT/OT/PROJECT ADMIN. 2. DM: glipizide/Januvia/SSI. Off lantus and re-started metformin 500mg BID ( home dose was 1000mg bid). 3. HTN: Lisinopril 4. Hyperlipidemia: Lipitor 80mg qday 5. Dysphagia: Mechanical soft diet/thin liquids 6. DVT Prophylaxis: Lovenox 7. Advance Directives: Full code. is surrogate decision maker 8. Leg spasms: on scheduled baclofen and prn robaxin 9. Nutrition: his brought in some supplements. 10. Depression: zoloft 50mg qday 12/08/18 19:52
[2018-12-08] MEDS: Enoxaparin(*) 40 MG/0.4 ML SYR SUBCUT SCH (20:56)
[2018-12-09] MEDS: Aspirin EC TAB* 325 MG PO SCH (08:33)
[2018-12-09] MEDS: Sertraline* 50 MG TAB PO SCH (08:33)
[2018-12-09] MEDS: CMC:SitaGLIPtin (NF) 100 MG TAB PO SCH (08:33)
[2018-12-09] MEDS: Lisinopril TAB* 10 MG PO SCH (08:33)
[2018-12-09] MEDS: Baclofen TAB* 10 MG PO SCH ×3 (08:33→20:55)
[2018-12-09] MEDS: glipiZIDE TAB.XL* 5 MG PO SCH (08:33)
[2018-12-09] MEDS: Famotidine TAB* 20 MG PO SCH ×2 (08:33→20:55)
[2018-12-09] MEDS: Lactobacillus Acidophilus* 1 TAB PO SCH (08:33)
[2018-12-09] MEDS: metFORMIN* 500 MG TAB PO SCH ×2 (08:33→18:02)
[2018-12-09] MEDS: Metoclopramide TAB* 10 MG PO SCH ×3 (08:34→18:01)
[2018-12-09] MEDS: Insulin LISPRO* 1 UNITS UNIT SUBCUT SCH ×4 (08:40→20:49)
[2018-12-09] MEDS: [UNRECOGNIZED DRUG - OTHER] PO SCH (08:40)
[2018-12-09] MEDS: GALLBLADDER FORMULA PO SCH ×3 (08:40→18:01)
[2018-12-09] MEDS: [UNRECOGNIZED DRUG - REMARK] PO SCH (08:41)
[2018-12-09] MEDS: Atorvastatin* 80 MG TAB PO SCH (18:02)
[2018-12-09] MEDS: Enoxaparin(*) 40 MG/0.4 ML SYR SUBCUT SCH (20:56)
[2018-12-09] MEDS: Bisacodyl SUPP* 10 MG SUPP PR PRN (20:57)
--- NOTE | 2018-12-09 22:15 | PN ---
Progress Note Date of Service: 12/09/18 Note: KEERTHI LEHMAN was visited. Therapy notes read and reviewed. He will go to [facility] tomorrow. He seems accepting of this decision. He remains plegic on right Current Medications: Active Medications Generic Name Dose Route Start Last Admin Trade Name Freq PRN Reason Stop Dose Admin Acetaminophen 650 mg 11/12/18 18:05 12/07/18 21:08 Tylenol Tab* PO 650 mg Q6H PRN Administration FEVER/PAIN Al Hydrox/Mg Hydrox/Simethicone 30 ml 11/13/18 13:46 11/13/18 13:57 Maalox Plus* PO 30 ml Q4H PRN Administration DYSPEPSIA Aspirin 325 mg 11/13/18 09:00 12/09/18 08:33 Ecotrin Ec Tab* PO 325 mg DAILY ELROY Administration Atorvastatin Calcium 80 mg 11/12/18 17:00 12/09/18 18:02 Lipitor* PO 80 mg 1700 ELROY Administration Baclofen 5 mg 11/23/18 14:00 12/09/18 20:55 Lioresal Tab* PO 5 mg TID ELROY Administration Bisacodyl 10 mg 11/12/18 14:09 12/09/18 20:57 Dulcolax Supp* [place] 10 mg DAILY PRN Administration CONSTIPATION Dextrose 12.5 gm 11/12/18 14:42 D50w Syringe 50 Ml* IV PUSH .FOR FS < 60 - SS PRN FS < 60 Docusate Sodium 100 mg 11/12/18 19:32 12/07/18 21:07 Colace Cap* PO 100 mg BID PRN Administration CONSTIPATION Enoxaparin Sodium 40 mg 11/12/18 20:30 12/09/18 20:56 Lovenox(*) SUBCUT 40 mg Q24H ELROY Administration Famotidine 20 mg 11/13/18 21:00 12/09/18 20:55 Pepcid Tab* PO 20 mg BID ELROY Administration Glipizide 5 mg 12/01/18 09:00 12/09/18 08:33 Glucotrol Xl* PO 5 mg DAILY ELROY Administration Insulin Human Lispro 0 - 10 units 11/23/18 21:00 12/09/18 20:49 Humalog* SUBCUT Not Given ACHS [facility] Protocol Lactobacillus Rhamnosus 1 tab 11/13/18 09:00 12/09/18 08:33 Lactobacillus Acidophilus* PO 1 tab DAILY ELROY Administration Lisinopril 40 mg 11/13/18 09:00 12/09/18 08:33 Prinivil Tab* PO 40 mg DAILY ELROY Administration Loperamide HCl 2 mg 11/12/18 19:31 11/15/18 00:02 Imodium Cap* PO 2 mg .SEE DIRECTIONS PRN Administration DIARRHEA Magnesium Hydroxide 30 ml 11/12/18 14:09 11/30/18 08:32 Milk Of Magnesia Liq* PO 30 ml Q6H PRN Administration CONSTIPATION Metformin HCl 500 mg 12/08/18 08:00 12/09/18 18:02 Glucophage* PO 500 mg 0800,1700 ELROY Administration Methocarbamol 500 mg 11/22/18 09:29 12/07/18 21:09 Robaxin Tab* PO 500 mg QID PRN Administration spasm Metoclopramide HCl 5 mg 11/16/18 07:30 12/09/18 18:01 Reglan Tab* PO 5 mg AC ELROY Administration Pto: (Daily 1 cap 11/22/18 09:30 12/09/18 08:40 Essential Enzymes 1 PO Not Given Cap) DAILY ELROY Pto: (Dr. Vee's D3 1 cap 11/22/18 09:45 12/09/18 08:41 & K2 Vitamin 1 Cap) PO Not Given DAILY ELROY Pto:(Gallbladder 1 cap 11/26/18 07:30 12/09/18 18:01 Formula 1 Cap) PO 1 cap AC ELROY Administration Senna 2 tab 11/12/18 14:09 12/07/18 21:09 Senokot Tab* PO 2 tab BEDTIME PRN Administration CONSTIPATION Sertraline HCl 50 mg 12/05/18 09:00 12/09/18 08:33 Zoloft* PO 50 mg DAILY ELROY Administration Sitagliptin Phosphate 100 mg 11/13/18 09:00 12/09/18 08:33 Januvia (Nf) PO 100 mg DAILY ELROY Administration Vital Signs: Vital Signs Temp Pulse Resp BP Pulse Ox 98.2 F 63 16 134/66 95 12/09/18 05:45 12/09/18 16:19 12/09/18 19:50 12/09/18 16:19 12/09/18 19:50 Lab Results: Laboratory Results - last 24 hr 12/09/18 12/09/18 12/09/18 08:25 12:18 16:44 POC Glucose (mg/dL) 103 H 120 H 118 H 12/09/18 20:41 POC Glucose (mg/dL) 87 Exam: GENERAL: no acute distress. alert and appropriate with hypophonia. LUNGS: Clear to auscultation bilaterally. HEART: regular rate and rhythm with occasional skipped beat ABDOMEN: Soft, + bowel sounds, non-tender, non-distended EXTREMITIES: Mildly increased tone in right UE and LE. No edema. NEUROLOGIC: Dysarthric. 5/5 motor in LUE and LLE. 0/5 throughout RUE and RLE except trace hip adduction, possible trace abduction. Sensation intact x4. Right facial droop. Assessment/Plan: 1. Left CVA with dense right hemiplegia: ASA. 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 2. DM: glipizide/Januvia/SSI. Off lantus and re-started metformin 500mg BID ( home dose was 1000mg bid). 3. HTN: Lisinopril 4. Hyperlipidemia: Lipitor 80mg qday 5. Dysphagia: Mechanical soft diet/thin liquids 6. DVT Prophylaxis: Lovenox 7. Advance Directives: Full code. is surrogate decision maker 8. Leg spasms: on scheduled baclofen and prn robaxin 9. Nutrition: his brought in some supplements. 10. Depression: zoloft 50mg qday 12/09/18 22:16
--- NOTE | 2018-12-10 01:50 | TRS ---
CC: [facility]* TRANSFER SUMMARY: DATE OF ADMISSION: 11/12/18 DATE OF DISCHARGE: 12/10/18 The patient is being transferred to [facility] subacute rehab. TRANSFER DIAGNOSES: 1. Left-sided stroke with right hemiplegia. 2. Diabetes mellitus. 3. Hypertension. 4. Hyperlipidemia. 5. History of subdural hematoma. 6. Prerenal azotemia. 7. Possible gastroparesis. 8. Hypertension. HISTORY OF PRESENT ILLNESS AND HOSPITAL COURSE: For complete history of the events leading up to his rehab stay, please see the history and physical dictated by me on 11/12/18. Very briefly, the patient is a 73-year-old male. On 11/04/18 he had the acute onset of slurred speech and he was brought to [facility] by his . He was admitted and discharged home on 11/05/18. He was diagnosed with a new stroke after an MRI of his brain. While she was driving him home she had stopped at the drug store to get Plavix which was ordered for him, but he was getting weaker on his right side. After getting him home and into the house, he had a great deal of difficulty getting out of the chair and she brought him back to [facility]. He was transferred to the [facility]. He had a CAT scan of his head showing a subacute infarct of the left todd radiata and thalamus. He also had a hemoglobin A1c of 8.4. He developed a dense right hemiplegia, dysphagia, and hypophonia. He was transferred to rehab on 11/12/18. When he arrived on Rehab he was having difficulty with projectile vomiting as well as diarrhea. He was started on Reglan for possible gastroparesis. He got IV fluids. He was noted to have an increased BUN and creatinine. His creatinine went up to 1.35. Following treatment, his creatinine started to drop. He was put on Reglan. His vomiting stopped. His diarrhea stopped. He was able to eat better. His creatinine dropped to 1.12 when he was restarted on metformin. The patient's blood sugars are still slightly high. He should return to his regular metformin dose which is 1000 mg twice a day. He is currently on 500 mg twice a day. He was kept on a full-strength aspirin for secondary stroke prevention. He was put on Zoloft because the patient was depressed. The patient otherwise was fairly stable from a medical point of view. He was seen by Physical Therapy, Occupational Therapy, and Speech Therapy. With physical therapy at the time of admission, the patient was dependent for transfers. He was noted to have a dense right hemiplegia. By the time of discharge, the patient still requires a [facility] transfer. He has difficulty with attaining the position of getting out of bed with a board. With occupational therapy at the time of admission, the patient was dependent for all activities of daily living, max assist for upper body dressing, max assist of 2 people for toileting, toilet transfers and bathing. By the time of discharge, the patient is mod assist for upper body dressing, total assist for lower body dressing, mod-assist for bathing, and total assist for toileting. The patient was also seen by Speech Therapy. He was quite hypophonic at the time of admission. He was on a mechanical soft nectar-thick liquid diet at the time of admission. By the time of discharge, the patient is on thin liquids. His voice remains hypophonic, but his speech can be intelligible. The patient, it was felt, would need a longer period of Rehab to recover from his severe stroke. He is now being transferred to [facility] for ongoing physical therapy, occupational therapy, and speech therapy. DISCHARGE DIET: Mechanical soft, thin liquids. DISCHARGE MEDICATIONS: 1. Lipitor 80 mg daily. 2. Aspirin 325 mg daily. 3. Baclofen 5 mg 3 times a day. 4. Dulcolax suppository 10 mg per rectum daily as needed. 5. Colace 100 mg twice a day. 6. Lovenox 40 mg subcutaneously every 24 hours. 7. Pepcid 20 mg twice daily. 8. Glucotrol XL 5 mg daily. 9. Lisinopril 40 mg daily. 10. Glucophage 500 mg at 8 a.m. and 5 p.m. 11. Reglan 5 mg before meals, although this can be tapered off in the future. 12. Zoloft 50 mg daily. 13. Januvia 100 mg daily. 14. In addition, the patient takes several vitamins that his daughter brought in for him. SERVICES AFTER DISCHARGE: The patient should have continuing ongoing restorative physical therapy, occupational therapy, and speech therapy. FOLLOWUP: The patient will follow up with his own primary care doctor as needed. He can also follow up with the neurology team at the [facility]. [id number]/CPS #: [id number] JUWAN
[2018-12-10 06:54] VITALS: BP 136/59
[2018-12-10] MEDS: Insulin LISPRO* 1 UNITS UNIT SUBCUT SCH ×2 (09:37→14:41)
[2018-12-10] MEDS: GALLBLADDER FORMULA PO SCH ×2 (09:37→14:41)
[2018-12-10] MEDS: Aspirin EC TAB* 325 MG PO SCH (10:20)
[2018-12-10] MEDS: metFORMIN* 500 MG TAB PO SCH (10:20)
[2018-12-10] MEDS: Metoclopramide TAB* 10 MG PO SCH ×2 (10:20→12:55)
[2018-12-10] MEDS: Baclofen TAB* 10 MG PO SCH (10:21)
[2018-12-10] MEDS: [UNRECOGNIZED DRUG - OTHER] PO SCH (10:22)
[2018-12-10] MEDS: Lactobacillus Acidophilus* 1 TAB PO SCH (10:22)
[2018-12-10] MEDS: glipiZIDE TAB.XL* 5 MG PO SCH (10:22)
[2018-12-10] MEDS: Famotidine TAB* 20 MG PO SCH (10:22)
[2018-12-10] MEDS: [UNRECOGNIZED DRUG - REMARK] PO SCH (10:22)
[2018-12-10] MEDS: Sertraline* 50 MG TAB PO SCH (10:23)
[2018-12-10] MEDS: Lisinopril TAB* 10 MG PO SCH (10:23)
[2018-12-10] MEDS: CMC:SitaGLIPtin (NF) 100 MG TAB PO SCH (10:23)
[2018-12-10] MEDS ORDERED: Aspirin EC TAB* 325 MG PO ONE (12:54)
== END 2018-12-10 13:40 | DRG 57 ==
LOC: PMRU 13:40
PROVIDERS: ADMIT Physical Medicine & Rehabilitation; ATTEND Physical Medicine & Rehabilitation
PROC: F07Z5ZZ Bed Mobility Treatment (ICD-10-PCS; principal; 2018-11-12)
PROC: F07Z9ZZ Gait Training/Functional Ambulation Treatment (ICD-10-PCS; 2018-11-12)
PROC: F07Z8ZZ Transfer Training Treatment (ICD-10-PCS; 2018-11-12)
PROC: F07Z4ZZ Wheelchair Mobility Treatment (ICD-10-PCS; 2018-11-12)
PROC: F08Z0ZZ Bathing/Showering Techniques Treatment (ICD-10-PCS; 2018-11-12)
PROC: F08Z1ZZ Dressing Techniques Treatment (ICD-10-PCS; 2018-11-12)
PROC: F08Z3ZZ Feeding/Eating Treatment (ICD-10-PCS; 2018-11-12)
PROC: F06 Physical Rehabilitation and Diagnostic Audiology, Rehabilitation, Speech Treatment (ICD-10-PCS; 2018-11-12)
PROC: F06ZDZZ Swallowing Dysfunction Treatment (ICD-10-PCS; 2018-11-12)
PROC: F06Z8ZZ Motor Speech Treatment (ICD-10-PCS; 2018-11-12)
DX: I69.351 Hemiplegia and hemiparesis following cerebral infarction affecting right dominant side (principal); E11.43 Type 2 diabetes mellitus with diabetic autonomic (poly)neuropathy; K31.84 Gastroparesis; E11.649 Type 2 diabetes mellitus with hypoglycemia without coma; I69.322 Dysarthria following cerebral infarction; I69.391 Dysphagia following cerebral infarction; I69.392 Facial weakness following cerebral infarction; R13.10 Dysphagia, unspecified; I10 Essential (primary) hypertension; E78.5 Hyperlipidemia, unspecified; R79.89 Other specified abnormal findings of blood chemistry; R11.12 Projectile vomiting; E86.0 Dehydration; L98.411 Non-pressure chronic ulcer of buttock limited to breakdown of skin; R19.7 Diarrhea, unspecified; F32.9 Major depressive disorder, single episode, unspecified; R25.2 Cramp and spasm; N28.9 Disorder of kidney and ureter, unspecified; Z79.84 Long term (current) use of oral hypoglycemic drugs; Z79.4 Long term (current) use of insulin; Z79.899 Other long term (current) drug therapy
CPT/HCPCS: 36415; 80048; 80053; 85025; A9270-GY; G0515-GO; J1650